=== PATIENT | male | born 1940 | race Caucasian/White ===

== ENCOUNTER 2020-11-30 00:50 | Inpatient (IN) | payer MEDICARE ==
[~2020-11-30] VITALS: Ht 182.9 cm; Wt 90.6 kg
[2020-11-30] MEDS ORDERED: OLAN5TAB9 PO ×2 (01:12)
[2020-11-30] MEDS ORDERED: SERT-269 PO (01:12)
[2020-11-30] MEDS ORDERED: SENN1TAB99 PO (01:12)
[2020-11-30] MEDS ORDERED: ATOR40TA59 PO (01:12)
[2020-11-30] MEDS ORDERED: OLAN10TA9 PO (01:12)
[2020-11-30] MEDS ORDERED: DONE10TA61 PO (01:12)
[2020-11-30] MEDS ORDERED: POLY17PO5 PO (01:12)
[2020-11-30] MEDS ORDERED: ACET325T21 PO (01:12)
[2020-11-30] MEDS ORDERED: MELA3TAB4 PO (01:12)
[2020-11-30] MEDS ORDERED: ASPI-630 PO (01:12)
[2020-11-30] MEDS ORDERED: DIVA500T17 PO (01:12)
[2020-11-30] MEDS ORDERED: TAMS0.4C97 PO (01:12)
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
[2020-11-30 02:23] LABS: BASO % 1 % (0-3); CALCIUM 9.3 mg/dL (8.5-10.1); CREATININE 1.3 mg/dL (0.7-1.3); EOS # 0.1 x10^3/uL (0.0-0.7); EOS % 2 % (0-3); HEMATOCRIT 37.1 % (39.0-53.0); HEMOGLOBIN 11.9 g/dL (13.0-17.5); LYMPH # 1.2 x10^3/uL (1.0-4.8); LYMPH % 26 % (24-48); MEAN CORPUSCULAR HEMOGLOBIN 28 pg (25-35); MEAN CORPUSCULAR HGB CONC 32 g/dL (31-37); MEAN CORPUSCULAR VOLUME 86 fL (79-100); MONO # 0.5 x10^3/uL (0.0-1.1); MONO % 12 % (0-9); NEUT # 2.7 x10^3uL (1.8-7.7); NEUT % 60 % (31-73); PLATELET COUNT 194 x10^3/uL (140-400); POTASSIUM 3.6 mmol/L (3.5-5.1); WHITE BLOOD COUNT 4.5 x10^3/uL (4.0-11.0)
[2020-11-30 02:36] LABS: ALBUMIN 3.5 g/dL (3.4-5.0); DIRECT BILIRUBIN 0.1 mg/dL (0.0-0.2); MAGNESIUM 2.4 mg/dL (1.8-2.4); TOTAL BILIRUBIN 0.2 mg/dL (0.2-1.0)
[2020-11-30 02:59] LABS: BARBITURATES NEG (NEG); BENZODIAZEPINES NEG (NEG); CANNABINOIDS NEG (NEG); COCAINE NEG (NEG); METHADONE NEG (NEG); OPIATES NEG (NEG); PHENCYCLIDINE NEG (NEG)
[2020-11-30 03:04] LABS: AMPHETAMINE/METHAMPHETAMINE NEG (NEG)
[2020-11-30 03:06] LABS: BACTERIA,URINE 0 /HPF (0-FEW); BILIRUBIN,URINE NEG (NEG); CLARITY,URINE CLEAR; COLOR,URINE YELLOW; GLUCOSE,URINE NEG (NEG); NITRITE,URINE NEG (NEG); RBC,URINE 0 /HPF (0-2); SQUAMOUS EPITHELIAL CELL,UR OCC /LPF; UROBILINOGEN,URINE 0.2 mg/dL (0.2 mg/dL); WBC,URINE 0 /HPF (0-4)
--- NOTE | 2020-11-30 03:45 | RAD ---
EXAMINATION: CT HEAD/BRAIN WO (CT HEAD WITHOUT IV CONTRAST) CLINICAL HISTORY: Fall and subdural hemorrhage TECHNIQUE: Serial axial images without IV contrast were obtained from the vertex to the foramen magnu m. CT Dose Reduction Employed: One or more of the following individualized dose reduction techniques wer e utilized for this examination: 1. Automated exposure control 2. Adjustment of the mA and/or kV ac cording to patient size 3. Use of iterative reconstruction technique. COMPARISON: None FINDINGS: Acute Change: No evidence of an acute infarct or other acute parenchymal process. Hemorrhage: Small left frontal subdural hematoma. Mass Lesion/Mass Effect: No evidence of intracranial mass. No significant mass effect. 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 Scattered patchy foci of hypoatt enuation in the supratentorial white matter, nonspecific but likely represents mild microvascular isc hemia. Parenchyma: Moderate generalized volume loss. Ventricles: Ventricular enlargement concordant with degree of parenchymal volume loss. Paranasal Sinuses and Skull Base: Visualized paranasal sinuses clear. Visualized skull base and soft tissues unremarkable. IMPRESSION: Small left frontal subdural hematoma. FOR INTERNAL CODING PURPOSES Critical result: Findings discussed with Alexander Ibrahim at 11/30/2020 3:40 AM. RESULT CODE: (C) Electronically signed by: Maco Marquez DO (11/30/2020 3:43 AM) KAREN
--- NOTE | 2020-11-30 04:17 | EKG ---
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
[2020-11-30] MEDS ORDERED: METHYL SALICYLATE/MENTHOL TOPICAL OINTMENT 57GM TUBE. TP PRN (04:45)
[2020-11-30] MEDS ORDERED: MAG HYDROX/AL HYDROX/SIMETH 30 ML ORAL.SUSP PO PRN (04:45)
[2020-11-30] MEDS ORDERED: ACETAMINOPHEN 325 MG TABLET PO PRN (04:45)
[2020-11-30] MEDS ORDERED: MAGNESIUM HYDROXIDE 2,400 MG/30 ML ORAL.SUSP. PO PRN (04:45)
--- NOTE | 2020-11-30 05:08 | RAD ---
EXAMINATION: XR CHEST 1V CLINICAL HISTORY: Dyspnea EXAM DATE/TIME: 11/30/2020 2:20 AM COMPARISON: None FINDINGS: Lines, Tubes, and Devices: None. Cardiomediastinal Silhouette: Normal heart size. Aortic atherosclerotic calcification. Lungs and Pleura: No evidence of focal airspace consolidation or pleural effusion. Mild coarse inters titial prominence, likely chronic. Bones and Soft Tissues: Degenerative changes of the thoracic spine. IMPRESSION: No evidence of acute cardiopulmonary abnormality. Electronically signed by: Maco Marquez DO (11/30/2020 5:05 AM) KAREN
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
[2020-11-30 05:47] VITALS: BP 120/72
[2020-11-30] MEDS: POLYETHYLENE GLYCOL 3350 17 GM PACKET. PO SCH (09:00)
[2020-11-30] MEDS: SENNOSIDES/DOCUSATE 8.6/50MG TABLET. PO SCH (12:13)
[2020-11-30] MEDS: DIVALPROEX ER 500 MG TAB.ER.24H PO SCH (12:13)
[2020-11-30] MEDS: ASPIRIN CHEWABLE 81 MG TABLET. PO SCH (12:13)
[2020-11-30] MEDS: SERTRALINE 100 MG TABLET. PO SCH (12:13)
[2020-11-30] MEDS: DONEPEZIL HCL 10 MG TABLET PO SCH (12:13)
[2020-11-30] MEDS: OLANZapine 10 MG TABLET PO SCH (12:13)
[2020-11-30] MEDS: TAMSULOSIN 0.4 MG CAP.ER.24H. PO SCH (12:13)
--- NOTE | 2020-11-30 13:02 | NUR ---
Pt has slept through most of the morning and woke just prior to lunch. He is compliant with medications whole. He is confused and forgetful, A&O to self only, absent of SI/HI/VH/AH/delusions. He denies pain when asked. After lunch he went back to bed to sleep some more. Plan of care continues, will pass to next shift.
[2020-11-30] MEDS ORDERED: oxyCODONE IR 5 MG TABLET PO PRN (13:30)
[2020-11-30 15:33] VITALS: BP 128/76
[2020-11-30] MEDS: OLANZapine 5 MG TABLET PO SCH ×2 (17:50→21:55)
[2020-11-30] MEDS: MELATONIN 3 MG TABLET PO SCH (21:00)
[2020-11-30] MEDS: ATORVASTATIN CALCIUM 20 MG TABLET PO SCH (21:54)
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
--- NOTE | 2020-11-30 22:10 | PDOC ---
Exam Note: Obey Note: Please also refer to the separate dictated note~for this date of service dictated separately.~Patient seen individually. Discussed the patient with Nursing staff reviewed the chart.~Reviewed interim history and current functioning. Reviewed vital signs,~Labs/ Radiology~and current medications noted below. Continue current treatment with the changes noted in the dictated addendum note Assessment: Vital Signs/I&O: Vital Signs Date Time Temp Pulse Resp B/P (MAP) Pulse Ox O2 Delivery O2 Flow Rate FiO2 11/30/20 15:33 97.8 75 18 128/76 (93) 96 11/30/20 05:47 Room Air Labs: Laboratory Tests Test 11/30/20 01:50 11/30/20 02:35 11/30/20 06:50 11/30/20 10:09 White Blood Count 4.5 x10^3/uL (4.0-11.0) Red Blood Count 4.30 x10^6/uL (4.30-5.70) Hemoglobin 11.9 g/dL (13.0-17.5) L Hematocrit 37.1 % (39.0-53.0) L Mean Corpuscular Volume 86 fL (79-100) Mean Corpuscular Hemoglobin 28 pg (25-35) Mean Corpuscular Hemoglobin Concent 32 g/dL (31-37) Red Cell Distribution Width 17.0 % (11.5-14.5) H Platelet Count 194 x10^3/uL (140-400) Neutrophils (%) (Auto) 60 % (31-73) Lymphocytes (%) (Auto) 26 % (24-48) Monocytes (%) (Auto) 12 % (0-9) H Eosinophils (%) (Auto) 2 % (0-3) Basophils (%) (Auto) 1 % (0-3) Neutrophils # (Auto) 2.7 x10^3uL (1.8-7.7) Lymphocytes # (Auto) 1.2 x10^3/uL (1.0-4.8) Monocytes # (Auto) 0.5 x10^3/uL (0.0-1.1) Eosinophils # (Auto) 0.1 x10^3/uL (0.0-0.7) Basophils # (Auto) 0.0 x10^3/uL (0.0-0.2) Sodium Level 144 mmol/L (136-145) Potassium Level 3.6 mmol/L (3.5-5.1) Chloride Level 107 mmol/L (98-107) Carbon Dioxide Level 27 mmol/L (21-32) Anion Gap 10 (6-14) Blood Urea Nitrogen 24 mg/dL (8-26) Creatinine 1.3 mg/dL (0.7-1.3) Estimated GFR (Cockcroft-Gault) 53.0 Glucose Level 116 mg/dL (70-99) H Calcium Level 9.3 mg/dL (8.5-10.1) Magnesium Level 2.4 mg/dL (1.8-2.4) Iron Level 56 ug/dL (65-175) L Total Iron Binding Capacity 379 ug/dL (250-450) Iron Saturation 15 % (15-34) Total Bilirubin 0.2 mg/dL (0.2-1.0) Direct Bilirubin 0.1 mg/dL (0.0-0.2) Aspartate Amino Transferase (AST) 22 U/L (15-37) Alanine Aminotransferase (ALT) 34 U/L (16-63) Alkaline Phosphatase 131 U/L (46-116) H Creatine Kinase 43 U/L (39-308) Troponin I Quantitative < 0.017 ng/mL (0-0.055) < 0.017 ng/mL (0-0.055) < 0.017 ng/mL (0-0.055) LT-Vuo-F-Type Natriuretic Peptide 142 pg/mL (0-449) Total Protein 7.0 g/dL (6.4-8.2) Albumin 3.5 g/dL (3.4-5.0) Triglycerides Level 87 mg/dL (0-150) Cholesterol Level 161 mg/dL (0-200) LDL Cholesterol, Calculated 81 mg/dL (0-100) VLDL Cholesterol, Calculated 17 mg/dL (0-40) Non-HDL Cholesterol Calculated 98 mg/dL (0-129) HDL Cholesterol 63 mg/dL (40-60) H Cholesterol/HDL Ratio 2.0 Thyroid Stimulating Hormone (TSH) 5.526 uIU/mL (0.358-3.740) Urine Collection Type Unknown Urine Color Yellow Urine Clarity Clear Urine pH 5.5 Urine Specific [place] 1.025 Urine Protein Neg (NEG-TRACE) Urine Glucose (UA) Neg mg/dL (NEG) Urine Ketones (Stick) Trace mg/dL (NEG) Urine Blood Neg (NEG) Urine Nitrite Neg (NEG) Urine Bilirubin Neg (NEG) Urine Urobilinogen Dipstick 0.2 mg/dL (0.2 mg/dL) Urine Leukocyte Esterase Neg (NEG) Urine RBC 0 /HPF (0-2) Urine WBC 0 /HPF (0-4) Urine Squamous Epithelial Cells Occ /LPF Urine Bacteria 0 /HPF (0-FEW) Urine Opiates Screen Neg (NEG) Urine Methadone Screen Neg (NEG) Urine Barbiturates Neg (NEG) Urine Phencyclidine Screen Neg (NEG) Urine Amphetamine/Methamphetamine Neg (NEG) Urine Benzodiazepines Screen Neg (NEG) Urine Cocaine Screen Neg (NEG) Urine Cannabinoids Screen Neg (NEG) Urine Ethyl Alcohol Neg (NEG) D-Dimer (Bere) 1.50 mg/L (0.00-0.50) H Current Medications: Meds: Current Medications Medications (Trade) Dose Ordered Sig/Veto Route PRN Reason Start Time Stop Time Status Last Admin Dose Admin Divalproex Sodium (Depakote Er) 500 mg DAILY PO 11/30/20 09:00 11/30/20 12:13 Donepezil HCl (Aricept) 10 mg DAILY PO 11/30/20 09:00 11/30/20 12:13 Melatonin (Melatonin) 3 mg HS PO 11/30/20 21:00 11/30/20 21:00 Olanzapine (ZyPREXA) 5 mg AFTRNOON PO 11/30/20 13:00 11/30/20 17:50 Olanzapine (ZyPREXA) 5 mg HS PO 11/30/20 21:00 11/30/20 21:55 Olanzapine (ZyPREXA) 10 mg DAILY PO 11/30/20 09:00 11/30/20 12:13 Sertraline HCl (Zoloft) 100 mg DAILY PO 11/30/20 09:00 11/30/20 12:13 Aspirin (Aspirin Chewable) 81 mg DAILY PO 11/30/20 09:00 11/30/20 12:13 Senna/Docusate Sodium (Senna Plus) 1 tab DAILY PO 11/30/20 09:00 11/30/20 12:13 Tamsulosin HCl (Flomax) 0.4 mg DAILY PO 11/30/20 09:00 11/30/20 12:13 Atorvastatin Calcium (Lipitor) 40 mg QHS PO 11/30/20 21:00 11/30/20 21:54 I have reviewed the current psychotropics carefully including drug interactions. Risk benefit ratio favors no change other than as noted in my dictated progress note. Diagnosis: Problems: (1) Major neurocognitive disorder (2) Dementia in Alzheimer's disease with delusions (3) Dementia in Alzheimer's disease with depression (4) Dementia of the Alzheimer's type with early onset with behavioral disturbance (5) Dementia, vascular, with delusions (6) Dementia, vascular, with depression (7) Anxiety disorder, unspecified (8) Impulse control disorder, unspecified SONIA REILLY MD Nov 30, 2020 22:10
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
[2020-12-01 00:09] LABS: THYROXINE 4.2 ug/dL (4.5-12.0)
--- NOTE | 2020-12-01 04:56 | NUR ---
Patient remained in his room through the shift. He exhibited reluctance in waking up to answer questions from the nurse or take his medications. He was able to answer a few questions coherently and insisted he wanted to go back to sleep once he had taken all his night med from the nurse. Patient remained in bed, resting with eyes closed, breathing normally and showing no distress.
[2020-12-01 05:53] VITALS: BP 116/71
[2020-12-01 06:10] LABS: HEMOGLOBIN A1C 5.7 % (4.8-5.6)
[2020-12-01 06:30] LABS: BASO % 1 % (0-3); EOS # 0.1 x10^3/uL (0.0-0.7); EOS % 2 % (0-3); HEMATOCRIT 35.4 % (39.0-53.0); HEMOGLOBIN 11.7 g/dL (13.0-17.5); LYMPH # 1.1 x10^3/uL (1.0-4.8); LYMPH % 26 % (24-48); MEAN CORPUSCULAR HEMOGLOBIN 28 pg (25-35); MEAN CORPUSCULAR HGB CONC 33 g/dL (31-37); MEAN CORPUSCULAR VOLUME 86 fL (79-100); MONO # 0.4 x10^3/uL (0.0-1.1); MONO % 10 % (0-9); NEUT # 2.6 x10^3uL (1.8-7.7); NEUT % 62 % (31-73); PLATELET COUNT 178 x10^3/uL (140-400); RED BLOOD COUNT 4.14 x10^6/uL (4.30-5.70); RED CELL DISTRIBUTION WIDTH 16.8 % (11.5-14.5); WHITE BLOOD COUNT 4.3 x10^3/uL (4.0-11.0)
[2020-12-01 06:53] LABS: CALCIUM 8.8 mg/dL (8.5-10.1); CREATININE 1.1 mg/dL (0.7-1.3); GFR 64.2
[2020-12-01] MEDS: SERTRALINE 100 MG TABLET. PO SCH (08:20)
[2020-12-01] MEDS: OLANZapine 10 MG TABLET PO SCH (08:20)
[2020-12-01] MEDS: DIVALPROEX ER 500 MG TAB.ER.24H PO SCH (08:20)
[2020-12-01] MEDS: ASPIRIN CHEWABLE 81 MG TABLET. PO SCH (08:20)
[2020-12-01] MEDS: POLYETHYLENE GLYCOL 3350 17 GM PACKET. PO SCH (08:20)
[2020-12-01] MEDS: SENNOSIDES/DOCUSATE 8.6/50MG TABLET. PO SCH (08:20)
[2020-12-01] MEDS: DONEPEZIL HCL 10 MG TABLET PO SCH (08:20)
[2020-12-01] MEDS: TAMSULOSIN 0.4 MG CAP.ER.24H. PO SCH (08:20)
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
[2020-12-01] MEDS: OLANZapine 5 MG TABLET PO SCH ×2 (12:26→21:00)
--- NOTE | 2020-12-01 13:20 | NUR ---
Treatment team note: Pt is eating 100% of meals and sleeping on average 7 hours per night. Pt is A/O to self and appears to have a flat affect. Pt wanders the unit; however, is calm and cooperative with staff direction. Nursing has noted that pt has a fluid pocket on the back of his neck and will have that looked at by the hospitalist. Pt did have a CT head completed upon admission and it does show a small subdural hematoma. Dr. Mansfield has been consulted; per the neurosurgeon he believes that hematoma is resolving. At this time, pt will return to [place] in [facility] 14 days.
--- NOTE | 2020-12-01 14:38 | NUR ---
NURSING NOTE Pt is ambulatory independently. Oriented to self only, wanders unit commenting "I'm lost" or "I'm not sure how I got here." Affect is flat, but involves himself on the periphery of group activities. Cooperative with cares. Meal intakes good, medications taken whole. Compliant with cares. Follow-up CT ordered for Tuesday.
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
[2020-12-01 15:34] VITALS: BP 109/73
[2020-12-01] MEDS: ATORVASTATIN CALCIUM 20 MG TABLET PO SCH (20:59)
[2020-12-01] MEDS: MELATONIN 3 MG TABLET PO SCH (21:00)
--- NOTE | 2020-12-01 21:56 | PDOC ---
Exam Note: Obey Note: Please also refer to the separate dictated note~for this date of service dictated separately.~Patient seen individually. Discussed the patient with Nursing staff reviewed the chart.~Reviewed interim history and current functioning. Reviewed vital signs,~Labs/ Radiology~and current medications noted below. Continue current treatment with the changes noted in the dictated addendum note Assessment: Vital Signs/I&O: Vital Signs Date Time Temp Pulse Resp B/P (MAP) Pulse Ox O2 Delivery O2 Flow Rate FiO2 12/01/20 15:34 97.3 89 16 109/73 (85) 96 11/30/20 05:47 Room Air I & O 11/30/20 11/30/20 12/01/20 15:00 23:00 07:00 Intake Total 240 ml 480 ml Balance 240 ml 480 ml Labs: Laboratory Tests Test 12/01/20 06:05 White Blood Count 4.3 x10^3/uL (4.0-11.0) Red Blood Count 4.14 x10^6/uL (4.30-5.70) L Hemoglobin 11.7 g/dL (13.0-17.5) L Hematocrit 35.4 % (39.0-53.0) L Mean Corpuscular Volume 86 fL (79-100) Mean Corpuscular Hemoglobin 28 pg (25-35) Mean Corpuscular Hemoglobin Concent 33 g/dL (31-37) Red Cell Distribution Width 16.8 % (11.5-14.5) H Platelet Count 178 x10^3/uL (140-400) Neutrophils (%) (Auto) 62 % (31-73) Lymphocytes (%) (Auto) 26 % (24-48) Monocytes (%) (Auto) 10 % (0-9) H Eosinophils (%) (Auto) 2 % (0-3) Basophils (%) (Auto) 1 % (0-3) Neutrophils # (Auto) 2.6 x10^3uL (1.8-7.7) Lymphocytes # (Auto) 1.1 x10^3/uL (1.0-4.8) Monocytes # (Auto) 0.4 x10^3/uL (0.0-1.1) Eosinophils # (Auto) 0.1 x10^3/uL (0.0-0.7) Basophils # (Auto) 0.0 x10^3/uL (0.0-0.2) Sodium Level 143 mmol/L (136-145) Potassium Level 4.0 mmol/L (3.5-5.1) Chloride Level 108 mmol/L (98-107) H Carbon Dioxide Level 26 mmol/L (21-32) Anion Gap 9 (6-14) Blood Urea Nitrogen 17 mg/dL (8-26) Creatinine 1.1 mg/dL (0.7-1.3) Estimated GFR (Cockcroft-Gault) 64.2 Glucose Level 95 mg/dL (70-99) Calcium Level 8.8 mg/dL (8.5-10.1) Current Medications: Meds: Laboratory Tests Test 12/01/20 06:05 White Blood Count 4.3 x10^3/uL Red Blood Count 4.14 x10^6/uL Hemoglobin 11.7 g/dL Hematocrit 35.4 % Mean Corpuscular Volume 86 fL Mean Corpuscular Hemoglobin 28 pg Mean Corpuscular Hemoglobin Concent 33 g/dL Red Cell Distribution Width 16.8 % Platelet Count 178 x10^3/uL Neutrophils (%) (Auto) 62 % Lymphocytes (%) (Auto) 26 % Monocytes (%) (Auto) 10 % Eosinophils (%) (Auto) 2 % Basophils (%) (Auto) 1 % Neutrophils # (Auto) 2.6 x10^3uL Lymphocytes # (Auto) 1.1 x10^3/uL Monocytes # (Auto) 0.4 x10^3/uL Eosinophils # (Auto) 0.1 x10^3/uL Basophils # (Auto) 0.0 x10^3/uL Sodium Level 143 mmol/L Potassium Level 4.0 mmol/L Chloride Level 108 mmol/L Carbon Dioxide Level 26 mmol/L Anion Gap 9 Blood Urea Nitrogen 17 mg/dL Creatinine 1.1 mg/dL Estimated GFR (Cockcroft-Gault) 64.2 Glucose Level 95 mg/dL Calcium Level 8.8 mg/dL Current Medications Medications (Trade) Dose Ordered Sig/Veto Route PRN Reason Start Time Stop Time Status Last Admin Dose Admin Divalproex Sodium (Depakote Er) 500 mg DAILY PO 11/30/20 09:00 12/01/20 08:20 Donepezil HCl (Aricept) 10 mg DAILY PO 11/30/20 09:00 12/01/20 08:20 Melatonin (Melatonin) 3 mg HS PO 11/30/20 21:00 12/01/20 21:00 Olanzapine (ZyPREXA) 5 mg AFTRNOON PO 11/30/20 13:00 12/01/20 12:26 Olanzapine (ZyPREXA) 5 mg HS PO 11/30/20 21:00 12/01/20 21:00 Olanzapine (ZyPREXA) 10 mg DAILY PO 11/30/20 09:00 12/01/20 08:20 Sertraline HCl (Zoloft) 100 mg DAILY PO 11/30/20 09:00 12/01/20 08:20 Acetaminophen (Tylenol) 650 mg PRN Q6HRS PRN PO MILD PAIN / TEMP > 100.3'F 11/30/20 04:45 Aspirin (Aspirin Chewable) 81 mg DAILY PO 11/30/20 09:00 12/01/20 08:20 Polyethylene Glycol (miraLAX) 17 gm DAILY PO 11/30/20 09:00 12/01/20 08:20 Senna/Docusate Sodium (Senna Plus) 1 tab DAILY PO 11/30/20 09:00 12/01/20 08:20 Tamsulosin HCl (Flomax) 0.4 mg DAILY PO 11/30/20 09:00 12/01/20 08:20 Atorvastatin Calcium (Lipitor) 40 mg QHS PO 11/30/20 21:00 12/01/20 20:59 Olanzapine (ZyPREXA ZYDIS) 2.5 mg PRN Q2HR PRN PO PSYCHOSIS 11/30/20 04:45 Multi-Ingredient Ointment (Analgesic [place]) 1 denia PRN QID PRN TP MUSCLE PAIN 11/30/20 04:45 Al Hydroxide/Mg Hydroxide (Mylanta Plus Xs) 15 ml PRN AFTMEALHC PRN PO DYSPEPSIA 11/30/20 04:45 Magnesium Hydroxide (Milk Of Magnesia) 2,400 mg PRN QHS PRN PO CONSTIPATION 11/30/20 04:45 Oxycodone HCl (Roxicodone) 5 mg PRN Q3HRS PRN PO SEVERE OR PERSISTANT PAIN 11/30/20 13:30 I have reviewed the current psychotropics carefully including drug interactions. Risk benefit ratio favors no change other than as noted in my dictated progress note. Diagnosis: Problems: (1) Impulse control disorder, unspecified (2) Anxiety disorder, unspecified (3) Dementia, vascular, with depression (4) Dementia, vascular, with delusions (5) Dementia in Alzheimer's disease with depression (6) Dementia in Alzheimer's disease with delusions (7) Dementia of the Alzheimer's type with early onset with behavioral disturbance (8) Major neurocognitive disorder SONIA REILLY MD Dec 01, 2020 21:56
--- NOTE | 2020-12-02 04:23 | NUR ---
Patient had an uneventful, regular day, starting his shift at the TV room where he interacted pleasantly with staff and peers. He was noticed consuming all his snacks and showed no signs of nausea and vomiting. He showed some intermittent wandering and confusion, but had a stable gait. Patient retired to his room after a few hours of TV and stayed in bed, resting with eyes closed, breathing normally and showing no signs of distress.
[2020-12-02 06:19] VITALS: BP 104/66
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
[2020-12-02] MEDS: ASPIRIN CHEWABLE 81 MG TABLET. PO SCH (09:00)
[2020-12-02] MEDS: OLANZapine 10 MG TABLET PO SCH (11:45)
[2020-12-02] MEDS: TAMSULOSIN 0.4 MG CAP.ER.24H. PO SCH (11:45)
[2020-12-02] MEDS: SERTRALINE 100 MG TABLET. PO SCH (11:45)
[2020-12-02] MEDS: POLYETHYLENE GLYCOL 3350 17 GM PACKET. PO SCH (11:45)
[2020-12-02] MEDS: DONEPEZIL HCL 10 MG TABLET PO SCH (11:45)
[2020-12-02] MEDS: SENNOSIDES/DOCUSATE 8.6/50MG TABLET. PO SCH (11:45)
[2020-12-02] MEDS: DIVALPROEX ER 500 MG TAB.ER.24H PO SCH (11:45)
--- NOTE | 2020-12-02 11:49 | NUR ---
Pt appropriate on the unit, no signs of verbal or physical aggression. He is compliant with whole medications. No SI/HI/VH/AH/delusions. He denies pain when asked. He does not interact with others intentionally, but will respond when spoken to. He appears confused at times, often just standing around and not sitting and joining others in activities. Plan of care continues, will pass to next shift.
[2020-12-02] MEDS: OLANZapine 5 MG TABLET PO SCH ×2 (13:00→19:44)
[2020-12-02 15:55] VITALS: BP 102/70
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
--- NOTE | 2020-12-02 17:51 | NUR ---
Obtained verbal consent from Son/Guardian, Aj Larios, to request radiology imaging/reports from [facility]. Release of information request completed by this nurse and co-signed by Charge Nurse Shahrzad. Release of info request and guardianship documents sent to [facility] (fax [phone]).
[2020-12-02] MEDS: ATORVASTATIN CALCIUM 20 MG TABLET PO SCH (19:44)
[2020-12-02] MEDS: MELATONIN 3 MG TABLET PO SCH (19:45)
--- NOTE | 2020-12-02 22:03 | PDOC ---
Exam Note: Obey Note: Please also refer to the separate dictated note~for this date of service dictated separately.~Patient seen individually. Discussed the patient with Nursing staff reviewed the chart.~Reviewed interim history and current functioning. Reviewed vital signs,~Labs/ Radiology~and current medications noted below. Continue current treatment with the changes noted in the dictated addendum note Assessment: Vital Signs/I&O: Vital Signs Date Time Temp Pulse Resp B/P (MAP) Pulse Ox O2 Delivery O2 Flow Rate FiO2 12/02/20 15:55 96.7 75 18 102/70 (81) 98 11/30/20 05:47 Room Air I & O 12/01/20 12/01/20 12/02/20 15:00 23:00 07:00 Intake Total 960 ml 480 ml 240 ml Balance 960 ml 480 ml 240 ml Current Medications: Meds: Current Medications Medications (Trade) Dose Ordered Sig/Veto Route PRN Reason Start Time Stop Time Status Last Admin Dose Admin Divalproex Sodium (Depakote Er) 500 mg DAILY PO 11/30/20 09:00 12/02/20 11:45 Donepezil HCl (Aricept) 10 mg DAILY PO 11/30/20 09:00 12/02/20 11:45 Melatonin (Melatonin) 3 mg HS PO 11/30/20 21:00 12/02/20 19:45 Olanzapine (ZyPREXA) 5 mg AFTRNOON PO 11/30/20 13:00 12/02/20 13:00 Olanzapine (ZyPREXA) 5 mg HS PO 11/30/20 21:00 12/02/20 19:44 Olanzapine (ZyPREXA) 10 mg DAILY PO 11/30/20 09:00 12/02/20 11:45 Sertraline HCl (Zoloft) 100 mg DAILY PO 11/30/20 09:00 12/02/20 11:45 Acetaminophen (Tylenol) 650 mg PRN Q6HRS PRN PO MILD PAIN / TEMP > 100.3'F 11/30/20 04:45 Aspirin (Aspirin Chewable) 81 mg DAILY PO 11/30/20 09:00 12/02/20 09:00 Polyethylene Glycol (miraLAX) 17 gm DAILY PO 11/30/20 09:00 12/02/20 11:45 Senna/Docusate Sodium (Senna Plus) 1 tab DAILY PO 11/30/20 09:00 12/02/20 11:45 Tamsulosin HCl (Flomax) 0.4 mg DAILY PO 11/30/20 09:00 12/02/20 11:45 Atorvastatin Calcium (Lipitor) 40 mg QHS PO 11/30/20 21:00 12/02/20 19:44 Olanzapine (ZyPREXA ZYDIS) 2.5 mg PRN Q2HR PRN PO PSYCHOSIS 11/30/20 04:45 Multi-Ingredient Ointment (Analgesic [place]) 1 denia PRN QID PRN TP MUSCLE PAIN 11/30/20 04:45 Al Hydroxide/Mg Hydroxide (Mylanta Plus Xs) 15 ml PRN AFTMEALHC PRN PO DYSPEPSIA 11/30/20 04:45 Magnesium Hydroxide (Milk Of Magnesia) 2,400 mg PRN QHS PRN PO CONSTIPATION 11/30/20 04:45 Oxycodone HCl (Roxicodone) 5 mg PRN Q3HRS PRN PO SEVERE OR PERSISTANT PAIN 11/30/20 13:30 I have reviewed the current psychotropics carefully including drug interactions. Risk benefit ratio favors no change other than as noted in my dictated progress note. Diagnosis: Problems: (1) Impulse control disorder, unspecified (2) Anxiety disorder, unspecified (3) Dementia, vascular, with depression (4) Dementia, vascular, with delusions (5) Dementia in Alzheimer's disease with depression (6) Dementia in Alzheimer's disease with delusions (7) Dementia of the Alzheimer's type with early onset with behavioral disturbance (8) Major neurocognitive disorder SONIA REILLY MD Dec 02, 2020 22:03
--- NOTE | 2020-12-02 23:03 | NUR ---
Pt sitting calmly in dayroom this evening. A/O name and . Compliant with whole medications. No agitation or aggression.
[2020-12-03 05:51] VITALS: BP 119/64
[2020-12-03 06:54] LABS: VAL ACID 38 mcg/mL (50-100)
--- NOTE | 2020-12-03 08:08 | PDOC ---
Exam Note: Obey Note: This note is a late entry for 12/01/2020 covers elements not covered in my initial note. Subjective: The patient was reviewed in the morning of 12/01/2020 for a treatment team meeting with Enriqueta Child, Linnette Petersen (geriatric social work professor), Yumiko Vasquez, Instrumentation Manager, Adia, activity therapy and helga Joshi RN iscussed and reviewed the chart. The patient slept 7 hours previous night. The patient cheeks his medications, tries to spit them out later. Reportedly he has had left frontal bleed. We will get a past CT head reports and have our radiologist compared with the recent one. In the evening he was wandering, exit seeking, not aggressive. Review of Systems: Ambulation impaired with walker. No CV, , pulmonary, eye, ENT system symptoms on review. Mental Status Exam: The patient is reasonably oriented to himself. Speech coherent. Abstraction fair. Computation impaired. Language function intact. Mood and affect depressed, anxious. No suicidal or homicidal ideation. Laboratory Data: Reviewed. Impression: Major neurocognitive disorder, Alzheimer, vascular with delusion, depression, behavioral disturbance. Anxiety disorder unspecified. Impulse control disorder unspecified. Plan: No change from initial note. Assessment: Vital Signs/I&O: Vital Signs Date Time Temp Pulse Resp B/P (MAP) Pulse Ox O2 Delivery O2 Flow Rate FiO2 12/03/20 05:51 97.6 56 20 119/64 (82) 99 11/30/20 05:47 Room Air I & O 12/02/20 12/02/20 12/03/20 15:00 23:00 07:00 Intake Total 690 ml 120 ml 240 ml Balance 690 ml 120 ml 240 ml Labs: Laboratory Tests Test 12/03/20 05:54 Valproic Acid Level 38 mcg/mL (50-100) L Valproic Acid Last Dose Date 12/02/20 Valproic Acid Last Dose Time 2100 Current Medications: Meds: Laboratory Tests Test 12/03/20 05:54 Valproic Acid (Depakene) Level 38 mcg/mL Valproic Acid Last Dose Date 12/02/20 Valproic Acid Last Dose Time 2100 Current Medications Medications (Trade) Dose Ordered Sig/Veto Route PRN Reason Start Time Stop Time Status Last Admin Dose Admin Divalproex Sodium (Depakote Er) 500 mg DAILY PO 11/30/20 09:00 12/02/20 11:45 Donepezil HCl (Aricept) 10 mg DAILY PO 11/30/20 09:00 12/02/20 11:45 Melatonin (Melatonin) 3 mg HS PO 11/30/20 21:00 12/02/20 19:45 Olanzapine (ZyPREXA) 5 mg AFTRNOON PO 11/30/20 13:00 12/02/20 13:00 Olanzapine (ZyPREXA) 5 mg HS PO 11/30/20 21:00 12/02/20 19:44 Olanzapine (ZyPREXA) 10 mg DAILY PO 11/30/20 09:00 12/02/20 11:45 Sertraline HCl (Zoloft) 100 mg DAILY PO 11/30/20 09:00 12/02/20 11:45 Acetaminophen (Tylenol) 650 mg PRN Q6HRS PRN PO MILD PAIN / TEMP > 100.3'F 11/30/20 04:45 Aspirin (Aspirin Chewable) 81 mg DAILY PO 11/30/20 09:00 12/02/20 09:00 Polyethylene Glycol (miraLAX) 17 gm DAILY PO 11/30/20 09:00 12/02/20 11:45 Senna/Docusate Sodium (Senna Plus) 1 tab DAILY PO 11/30/20 09:00 12/02/20 11:45 Tamsulosin HCl (Flomax) 0.4 mg DAILY PO 11/30/20 09:00 12/02/20 11:45 Atorvastatin Calcium (Lipitor) 40 mg QHS PO 11/30/20 21:00 12/02/20 19:44 Olanzapine (ZyPREXA ZYDIS) 2.5 mg PRN Q2HR PRN PO PSYCHOSIS 11/30/20 04:45 Multi-Ingredient Ointment (Analgesic [place]) 1 denia PRN QID PRN TP MUSCLE PAIN 11/30/20 04:45 Al Hydroxide/Mg Hydroxide (Mylanta Plus Xs) 15 ml PRN AFTMEALHC PRN PO DYSPEPSIA 11/30/20 04:45 Magnesium Hydroxide (Milk Of Magnesia) 2,400 mg PRN QHS PRN PO CONSTIPATION 11/30/20 04:45 Oxycodone HCl (Roxicodone) 5 mg PRN Q3HRS PRN PO SEVERE OR PERSISTANT PAIN 11/30/20 13:30 I have reviewed the current psychotropics carefully including drug interactions. Risk benefit ratio favors no change other than as noted in my dictated progress note. 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
[2020-12-03] MEDS: SENNOSIDES/DOCUSATE 8.6/50MG TABLET. PO SCH (08:13)
[2020-12-03] MEDS: DIVALPROEX ER 500 MG TAB.ER.24H PO SCH (08:13)
[2020-12-03] MEDS: DONEPEZIL HCL 10 MG TABLET PO SCH (08:13)
[2020-12-03] MEDS: POLYETHYLENE GLYCOL 3350 17 GM PACKET. PO SCH (08:13)
[2020-12-03] MEDS: TAMSULOSIN 0.4 MG CAP.ER.24H. PO SCH (08:13)
[2020-12-03] MEDS: OLANZapine 10 MG TABLET PO SCH (08:13)
[2020-12-03] MEDS: SERTRALINE 100 MG TABLET. PO SCH (08:13)
[2020-12-03] MEDS: ASPIRIN CHEWABLE 81 MG TABLET. PO SCH (08:13)
--- NOTE | 2020-12-03 08:23 | PDOC ---
Exam Note: Obey Note: This note is a late entry for 12/02/2020 covers elements not covered in my initial note. Subjective: The patient was seen individually in the evening of 12/02/2020 with Madelyn EDGAR, discussed and reviewed the chart. The patient slept 5-1/4 hours previous night. The patient was confused last night, fairly quiet today, withdrawn. Social skills are poor. He sits away from others. Family said this is how he has been, compliant with medications. We will check valproic acid level in the morning and adjust to reach therapeutic level. We will consider Wellbutrin to help with his mood and energy and to augment the Zoloft. Review of Systems: Ambulation impaired with walker. No CV, , pulmonary, eye, ENT system symptoms on review. Mental Status Exam: The patient is reasonably oriented to himself. Speech coherent. Abstraction fair. Computation impaired. Language function intact. Mood and affect depressed, anxious. No suicidal or homicidal ideation. Laboratory Data: Reviewed. Impression: Major neurocognitive disorder, Alzheimer, vascular with delusion, depression, behavioral disturbance. Anxiety disorder unspecified. Impulse control disorder unspecified. Plan: No change from initial note and as noted above. Assessment: Vital Signs/I&O: Vital Signs Date Time Temp Pulse Resp B/P (MAP) Pulse Ox O2 Delivery O2 Flow Rate FiO2 12/03/20 05:51 97.6 56 20 119/64 (82) 99 11/30/20 05:47 Room Air I & O 12/02/20 12/02/20 12/03/20 14:59 22:59 06:59 Intake Total 690 ml 120 ml 240 ml Balance 690 ml 120 ml 240 ml Labs: Laboratory Tests Test 12/03/20 05:54 Valproic Acid Level 38 mcg/mL (50-100) L Valproic Acid Last Dose Date 12/02/20 Valproic Acid Last Dose Time 2100 Current Medications: Meds: Laboratory Tests Test 12/03/20 05:54 Valproic Acid (Depakene) Level 38 mcg/mL Valproic Acid Last Dose Date 12/02/20 Valproic Acid Last Dose Time 2100 Current Medications Medications (Trade) Dose Ordered Sig/Veto Route PRN Reason Start Time Stop Time Status Last Admin Dose Admin Divalproex Sodium (Depakote Er) 500 mg DAILY PO 11/30/20 09:00 12/03/20 08:13 Donepezil HCl (Aricept) 10 mg DAILY PO 11/30/20 09:00 12/03/20 08:13 Melatonin (Melatonin) 3 mg HS PO 11/30/20 21:00 12/02/20 19:45 Olanzapine (ZyPREXA) 5 mg AFTRNOON PO 11/30/20 13:00 12/02/20 13:00 Olanzapine (ZyPREXA) 5 mg HS PO 11/30/20 21:00 12/02/20 19:44 Olanzapine (ZyPREXA) 10 mg DAILY PO 11/30/20 09:00 12/03/20 08:13 Sertraline HCl (Zoloft) 100 mg DAILY PO 11/30/20 09:00 12/03/20 08:13 Acetaminophen (Tylenol) 650 mg PRN Q6HRS PRN PO MILD PAIN / TEMP > 100.3'F 11/30/20 04:45 Aspirin (Aspirin Chewable) 81 mg DAILY PO 11/30/20 09:00 12/03/20 08:13 Polyethylene Glycol (miraLAX) 17 gm DAILY PO 11/30/20 09:00 12/03/20 08:13 Senna/Docusate Sodium (Senna Plus) 1 tab DAILY PO 11/30/20 09:00 12/03/20 08:13 Tamsulosin HCl (Flomax) 0.4 mg DAILY PO 11/30/20 09:00 12/03/20 08:13 Atorvastatin Calcium (Lipitor) 40 mg QHS PO 11/30/20 21:00 12/02/20 19:44 Olanzapine (ZyPREXA ZYDIS) 2.5 mg PRN Q2HR PRN PO PSYCHOSIS 11/30/20 04:45 Multi-Ingredient Ointment (Analgesic [place]) 1 denia PRN QID PRN TP MUSCLE PAIN 11/30/20 04:45 Al Hydroxide/Mg Hydroxide (Mylanta Plus Xs) 15 ml PRN AFTMEALHC PRN PO DYSPEPSIA 11/30/20 04:45 Magnesium Hydroxide (Milk Of Magnesia) 2,400 mg PRN QHS PRN PO CONSTIPATION 11/30/20 04:45 Oxycodone HCl (Roxicodone) 5 mg PRN Q3HRS PRN PO SEVERE OR PERSISTANT PAIN 11/30/20 13:30 I have reviewed the current psychotropics carefully including drug interactions. Risk benefit ratio favors no change other than as noted in my dictated progress note. 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
--- NOTE | 2020-12-03 12:35 | NUR ---
ACTIVITY THERAPY ASSESSMENT completed based on notes, observation and interview. Pt was sitting in the dinning room eating his lunch. Pt was willing to answer assessment questions. Pt remained calm and pleasant during time of assessment. AT introduced self and asked pt what activities he enjoys. Pt had a hard time answering this question but said that he enjoyed good food. When AT provided activities for pt he said that he did not enjoy them. AT then asked pt about his family. Pt said that he had been for close to 50 years and that he has three children. Per notes pt has four children and his in 2011. AT then asked pt orientation questions. Pt answered his birthday and the current year incorrectly. Pt said he was unsure of his location. AT then asked pt if he felt any stress and he said that the assessment questions were stressing him out as he laughed. AT asked pt if she could give him some magazines and pt accepted. Pt thanked AT and continued eating. Pt has attended one group activity sense his admission. Initial goal aimed to increase socialization and engagement. Pt will participate in at least three individual or group Activity Therapy sessions per week. Addendum: 12/08/20 at 1141 by JOSE VO ACT Goal repeated 12/08
--- NOTE | 2020-12-03 13:22 | NUR ---
Pt remains calm this morning. His interactions with others have been appropriate this morning. He is compliant with whole medications. He is A&O to self, confused and at times disorganized. He is absent of SI/HI/VH/AH/delusions at this time. He denies pain when asked. At times he's observed to be wandering about the unit but does not appear to be actively exit seeking. Plan of care continues, will pass to next shift.
[2020-12-03] MEDS: OLANZapine 5 MG TABLET PO SCH ×2 (15:10→21:00)
[2020-12-03 15:59] VITALS: BP 107/64
[2020-12-03] MEDS: MELATONIN 3 MG TABLET PO SCH (21:00)
[2020-12-03] MEDS: ATORVASTATIN CALCIUM 20 MG TABLET PO SCH (21:00)
--- NOTE | 2020-12-03 21:56 | PDOC ---
Exam Note: Obey Note: Please also refer to the separate dictated note~for this date of service dictated separately.~Patient seen individually. Discussed the patient with Nursing staff reviewed the chart.~Reviewed interim history and current functioning. Reviewed vital signs,~Labs/ Radiology~and current medications noted below. Continue current treatment with the changes noted in the dictated addendum note Assessment: Vital Signs/I&O: Vital Signs Date Time Temp Pulse Resp B/P (MAP) Pulse Ox O2 Delivery O2 Flow Rate FiO2 12/03/20 15:59 97.0 65 20 107/64 (78) 98 11/30/20 05:47 Room Air I & O 12/02/20 12/02/20 12/03/20 15:00 23:00 07:00 Intake Total 690 ml 120 ml 240 ml Balance 690 ml 120 ml 240 ml Labs: Laboratory Tests Test 12/03/20 05:54 Valproic Acid Level 38 mcg/mL (50-100) L Valproic Acid Last Dose Date 12/02/20 Valproic Acid Last Dose Time 2100 Current Medications: Meds: Laboratory Tests Test 12/03/20 05:54 Valproic Acid (Depakene) Level 38 mcg/mL Valproic Acid Last Dose Date 12/02/20 Valproic Acid Last Dose Time 2100 Current Medications Medications (Trade) Dose Ordered Sig/Veto Route PRN Reason Start Time Stop Time Status Last Admin Dose Admin Divalproex Sodium (Depakote Er) 500 mg DAILY PO 11/30/20 09:00 12/03/20 17:20 DC 12/03/20 08:13 Donepezil HCl (Aricept) 10 mg DAILY PO 11/30/20 09:00 12/03/20 08:13 Melatonin (Melatonin) 3 mg HS PO 11/30/20 21:00 12/03/20 21:00 Olanzapine (ZyPREXA) 5 mg AFTRNOON PO 11/30/20 13:00 12/03/20 15:10 Olanzapine (ZyPREXA) 5 mg HS PO 11/30/20 21:00 12/03/20 21:00 Olanzapine (ZyPREXA) 10 mg DAILY PO 11/30/20 09:00 12/03/20 19:22 DC 12/03/20 08:13 Sertraline HCl (Zoloft) 100 mg DAILY PO 11/30/20 09:00 12/03/20 08:13 Acetaminophen (Tylenol) 650 mg PRN Q6HRS PRN PO MILD PAIN / TEMP > 100.3'F 11/30/20 04:45 Aspirin (Aspirin Chewable) 81 mg DAILY PO 11/30/20 09:00 12/03/20 08:13 Polyethylene Glycol (miraLAX) 17 gm DAILY PO 11/30/20 09:00 12/03/20 08:13 Senna/Docusate Sodium (Senna Plus) 1 tab DAILY PO 11/30/20 09:00 12/03/20 08:13 Tamsulosin HCl (Flomax) 0.4 mg DAILY PO 11/30/20 09:00 12/03/20 08:13 Atorvastatin Calcium (Lipitor) 40 mg QHS PO 11/30/20 21:00 12/03/20 21:00 Olanzapine (ZyPREXA ZYDIS) 2.5 mg PRN Q2HR PRN PO PSYCHOSIS 11/30/20 04:45 Multi-Ingredient Ointment (Analgesic [place]) 1 denia PRN QID PRN TP MUSCLE PAIN 11/30/20 04:45 Al Hydroxide/Mg Hydroxide (Mylanta Plus Xs) 15 ml PRN AFTMEALHC PRN PO DYSPEPSIA 11/30/20 04:45 Magnesium Hydroxide (Milk Of Magnesia) 2,400 mg PRN QHS PRN PO CONSTIPATION 11/30/20 04:45 Oxycodone HCl (Roxicodone) 5 mg PRN Q3HRS PRN PO SEVERE OR PERSISTANT PAIN 11/30/20 13:30 Divalproex Sodium (Depakote Er) 750 mg HS PO 12/04/20 21:00 Olanzapine (ZyPREXA) 5 mg DAILY PO 12/04/20 09:00 I have reviewed the current psychotropics carefully including drug interactions. Risk benefit ratio favors no change other than as noted in my dictated progress note. 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
--- NOTE | 2020-12-04 04:26 | NUR ---
Patient has been alert and oriented x2 with intermittent confusion and disorientation relative to location. Patient asked nurse about three times where he was and after being told, he would inquire on one of the occasions how to get out from here. Patient was intermittently wandering between the tv room and the hallways, but not exit seeking at any given time. Patient complied with his bed time meds which he received in his room and then stayed in bed with eyes closed, breathing normally and showing no distress.
[2020-12-04 05:54] VITALS: BP 107/65
--- NOTE | 2020-12-04 06:59 | PDOC ---
Exam Note: Obey Note: This note is a late entry for 12/03/2020 covers elements not covered in my initial note. Subjective: The patient was seen individually in the evening of 12/03/2020 with Madelyn EDGAR, discussed and reviewed the chart. The patient slept 7-1/2 hours previous night. The patient has been confused. CT head from [facility] has been received and repeat CT will be done on 12/08 to compare to this specifically adding subdural bleed. He had a nap in the afternoon. Valproic acid level is 38 and we will change Depakote ER 250 mg daily to 500 mg h.s. Check CBC, CMP, valproic acid level in 3 days and reduce Zyprexa from 20 mg a day down to 15 mg a day. In fact nursing staff called me later. He is already on 500 mg daily of Depakote ER and we will increase to 750 mg h.s. ER. Review of Systems: Ambulation impaired with walker. No CV, , pulmonary, eye, ENT system symptoms on review. Mental Status Exam: The patient is reasonably oriented to himself. Speech coherent. Abstraction fair. Computation impaired. Language function intact. Mood and affect depressed, anxious. No suicidal or homicidal ideation. Laboratory Data: Reviewed. Impression: Major neurocognitive disorder, Alzheimer, vascular with delusion, depression, behavioral disturbance. Anxiety disorder unspecified. Impulse control disorder unspecified. Plan: No change from initial note and as noted above. Valproic acid level is 38 and we will change Depakote ER 250 mg daily to 500 mg h.s. Check CBC, CMP, valproic acid level in 3 days and reduce Zyprexa from 20 mg a day down to 15 mg a day. In fact nursing staff called me later. He is already on 500 mg daily of Depakote ER and we will increase to 750 mg h.s. ER. Assessment: Vital Signs/I&O: Vital Signs Date Time Temp Pulse Resp B/P (MAP) Pulse Ox O2 Delivery O2 Flow Rate FiO2 12/04/20 05:54 97.1 57 16 107/65 (79) 99 11/30/20 05:47 Room Air I & O 12/03/20 12/03/20 12/04/20 15:00 23:00 07:00 Intake Total 840 ml 360 ml 240 ml Balance 840 ml 360 ml 240 ml Current Medications: Meds: Current Medications Medications (Trade) Dose Ordered Sig/Veto Route PRN Reason Start Time Stop Time Status Last Admin Dose Admin Divalproex Sodium (Depakote Er) 500 mg DAILY PO 11/30/20 09:00 12/03/20 17:20 DC 12/03/20 08:13 Donepezil HCl (Aricept) 10 mg DAILY PO 11/30/20 09:00 12/03/20 08:13 Melatonin (Melatonin) 3 mg HS PO 11/30/20 21:00 12/03/20 21:00 Olanzapine (ZyPREXA) 5 mg AFTRNOON PO 11/30/20 13:00 12/03/20 15:10 Olanzapine (ZyPREXA) 5 mg HS PO 11/30/20 21:00 12/03/20 21:00 Olanzapine (ZyPREXA) 10 mg DAILY PO 11/30/20 09:00 12/03/20 19:22 DC 12/03/20 08:13 Sertraline HCl (Zoloft) 100 mg DAILY PO 11/30/20 09:00 12/03/20 08:13 Acetaminophen (Tylenol) 650 mg PRN Q6HRS PRN PO MILD PAIN / TEMP > 100.3'F 11/30/20 04:45 Aspirin (Aspirin Chewable) 81 mg DAILY PO 11/30/20 09:00 12/03/20 08:13 Polyethylene Glycol (miraLAX) 17 gm DAILY PO 11/30/20 09:00 12/03/20 08:13 Senna/Docusate Sodium (Senna Plus) 1 tab DAILY PO 11/30/20 09:00 12/03/20 08:13 Tamsulosin HCl (Flomax) 0.4 mg DAILY PO 11/30/20 09:00 12/03/20 08:13 Atorvastatin Calcium (Lipitor) 40 mg QHS PO 11/30/20 21:00 12/03/20 21:00 Olanzapine (ZyPREXA ZYDIS) 2.5 mg PRN Q2HR PRN PO PSYCHOSIS 11/30/20 04:45 Multi-Ingredient Ointment (Analgesic [place]) 1 denia PRN QID PRN TP MUSCLE PAIN 11/30/20 04:45 Al Hydroxide/Mg Hydroxide (Mylanta Plus Xs) 15 ml PRN AFTMEALHC PRN PO DYSPEPSIA 11/30/20 04:45 Magnesium Hydroxide (Milk Of Magnesia) 2,400 mg PRN QHS PRN PO CONSTIPATION 11/30/20 04:45 Oxycodone HCl (Roxicodone) 5 mg PRN Q3HRS PRN PO SEVERE OR PERSISTANT PAIN 11/30/20 13:30 Divalproex Sodium (Depakote Er) 750 mg HS PO 12/04/20 21:00 Olanzapine (ZyPREXA) 5 mg DAILY PO 12/04/20 09:00 I have reviewed the current psychotropics carefully including drug interactions. Risk benefit ratio favors no change other than as noted in my dictated progress note. Diagnosis: Problems: (1) Impulse control disorder, unspecified (2) Anxiety disorder, unspecified (3) Dementia, vascular, with depression (4) Dementia, vascular, with delusions (5) Dementia in Alzheimer's disease with depression (6) Dementia in Alzheimer's disease with delusions (7) Dementia of the Alzheimer's type with early onset with behavioral disturbance (8) Major neurocognitive disorder SONIA REILLY MD Dec 04, 2020 06:59
[2020-12-04] MEDS: SERTRALINE 100 MG TABLET. PO SCH (08:15)
[2020-12-04] MEDS: SENNOSIDES/DOCUSATE 8.6/50MG TABLET. PO SCH (08:15)
[2020-12-04] MEDS: DONEPEZIL HCL 10 MG TABLET PO SCH (08:15)
[2020-12-04] MEDS: ASPIRIN CHEWABLE 81 MG TABLET. PO SCH (08:15)
[2020-12-04] MEDS: POLYETHYLENE GLYCOL 3350 17 GM PACKET. PO SCH (08:15)
[2020-12-04] MEDS: TAMSULOSIN 0.4 MG CAP.ER.24H. PO SCH (08:15)
[2020-12-04] MEDS: OLANZapine 5 MG TABLET PO SCH ×3 (08:15→20:03)
--- NOTE | 2020-12-04 14:20 | NUR ---
NURSING NOTE: Pt is alert to self, confused to all other. Wears glasses at all times for vision correction. Affect is flat, but calm et compliant with medications et treatment. Ambulates independently in halls without device. Wanders in halls, often stopping staff to ask how he "got here." Frequent reorientation required, but retention of information is short lived. Despite the wandering tendency, he is not exhibiting exit seeking behavior. Denies pain, or any medical concern at this time.
[2020-12-04 16:12] VITALS: BP 121/74
[2020-12-04] MEDS: ATORVASTATIN CALCIUM 20 MG TABLET PO SCH (20:02)
[2020-12-04] MEDS: DIVALPROEX ER 250 MG TAB.ER.24H. PO SCH (20:02)
[2020-12-04] MEDS: MELATONIN 3 MG TABLET PO SCH (20:03)
--- NOTE | 2020-12-04 22:05 | PDOC ---
Exam Note: Obey Note: Please also refer to the separate dictated note~for this date of service dictated separately.~Patient seen individually. Discussed the patient with Nursing staff reviewed the chart.~Reviewed interim history and current functioning. Reviewed vital signs,~Labs/ Radiology~and current medications noted below. Continue current treatment with the changes noted in the dictated addendum note Assessment: Vital Signs/I&O: Vital Signs Date Time Temp Pulse Resp B/P (MAP) Pulse Ox O2 Delivery O2 Flow Rate FiO2 12/04/20 16:12 97.0 87 20 121/74 (90) 94 Room Air I & O 12/03/20 12/03/20 12/04/20 15:00 23:00 07:00 Intake Total 840 ml 360 ml 240 ml Balance 840 ml 360 ml 240 ml Current Medications: Meds: Current Medications Medications (Trade) Dose Ordered Sig/Veto Route PRN Reason Start Time Stop Time Status Last Admin Dose Admin Divalproex Sodium (Depakote Er) 500 mg DAILY PO 11/30/20 09:00 12/03/20 17:20 DC 12/03/20 08:13 Donepezil HCl (Aricept) 10 mg DAILY PO 11/30/20 09:00 12/04/20 08:15 Melatonin (Melatonin) 3 mg HS PO 11/30/20 21:00 12/04/20 20:03 Olanzapine (ZyPREXA) 5 mg AFTRNOON PO 11/30/20 13:00 12/04/20 12:03 Olanzapine (ZyPREXA) 5 mg HS PO 11/30/20 21:00 12/04/20 20:03 Olanzapine (ZyPREXA) 10 mg DAILY PO 11/30/20 09:00 12/03/20 19:22 DC 12/03/20 08:13 Sertraline HCl (Zoloft) 100 mg DAILY PO 11/30/20 09:00 12/04/20 08:15 Acetaminophen (Tylenol) 650 mg PRN Q6HRS PRN PO MILD PAIN / TEMP > 100.3'F 11/30/20 04:45 Aspirin (Aspirin Chewable) 81 mg DAILY PO 11/30/20 09:00 12/04/20 08:15 Polyethylene Glycol (miraLAX) 17 gm DAILY PO 11/30/20 09:00 12/04/20 08:15 Senna/Docusate Sodium (Senna Plus) 1 tab DAILY PO 11/30/20 09:00 12/04/20 08:15 Tamsulosin HCl (Flomax) 0.4 mg DAILY PO 11/30/20 09:00 12/04/20 08:15 Atorvastatin Calcium (Lipitor) 40 mg QHS PO 11/30/20 21:00 12/04/20 20:02 Olanzapine (ZyPREXA ZYDIS) 2.5 mg PRN Q2HR PRN PO PSYCHOSIS 11/30/20 04:45 Multi-Ingredient Ointment (Analgesic [place]) 1 denia PRN QID PRN TP MUSCLE PAIN 11/30/20 04:45 Al Hydroxide/Mg Hydroxide (Mylanta Plus Xs) 15 ml PRN AFTMEALHC PRN PO DYSPEPSIA 11/30/20 04:45 Magnesium Hydroxide (Milk Of Magnesia) 2,400 mg PRN QHS PRN PO CONSTIPATION 11/30/20 04:45 Oxycodone HCl (Roxicodone) 5 mg PRN Q3HRS PRN PO SEVERE OR PERSISTANT PAIN 11/30/20 13:30 Divalproex Sodium (Depakote Er) 750 mg HS PO 12/04/20 21:00 12/04/20 20:02 Olanzapine (ZyPREXA) 5 mg DAILY PO 12/04/20 09:00 12/04/20 08:15 Current Medications Medications (Trade) Dose Ordered Sig/Veto Route PRN Reason Start Time Stop Time Status Last Admin Dose Admin Divalproex Sodium (Depakote Er) 750 mg HS PO 12/04/20 21:00 12/04/20 20:02 Olanzapine (ZyPREXA) 5 mg DAILY PO 12/04/20 09:00 12/04/20 08:15 I have reviewed the current psychotropics carefully including drug interactions. Risk benefit ratio favors no change other than as noted in my dictated progress note. Diagnosis: Problems: (1) Impulse control disorder, unspecified (2) Anxiety disorder, unspecified (3) Dementia, vascular, with depression (4) Dementia, vascular, with delusions (5) Dementia in Alzheimer's disease with depression (6) Dementia in Alzheimer's disease with delusions (7) Dementia of the Alzheimer's type with early onset with behavioral disturbance (8) Major neurocognitive disorder SONIA REILLY MD Dec 04, 2020 22:05
--- NOTE | 2020-12-04 23:26 | NUR ---
Pt wandering unit this evening, frequently laying himself down in other pt's beds. Compliant with redirection and whole medications. No agitation or aggression.
[2020-12-05 05:47] VITALS: BP 126/78
[2020-12-05] MEDS: TAMSULOSIN 0.4 MG CAP.ER.24H. PO SCH (08:30)
[2020-12-05] MEDS: DONEPEZIL HCL 10 MG TABLET PO SCH (08:30)
[2020-12-05] MEDS: SERTRALINE 100 MG TABLET. PO SCH (08:30)
[2020-12-05] MEDS: OLANZapine 5 MG TABLET PO SCH ×3 (08:30→20:22)
[2020-12-05] MEDS: SENNOSIDES/DOCUSATE 8.6/50MG TABLET. PO SCH (08:30)
[2020-12-05] MEDS: POLYETHYLENE GLYCOL 3350 17 GM PACKET. PO SCH (08:30)
[2020-12-05] MEDS: ASPIRIN CHEWABLE 81 MG TABLET. PO SCH (08:30)
--- NOTE | 2020-12-05 09:36 | NUR ---
Pt has been appropriate and calm this morning. His behaviors with others have been appropriate this morning. He is A&O to self, confused and at times disorganized. He is compliant with whole medications. He is absent of SI/HI/VH/AH/delusions at this time. He denies pain when asked. Plan of care continues, will pass to next shift.
[2020-12-05 16:28] VITALS: BP 100/65
[2020-12-05] MEDS: ATORVASTATIN CALCIUM 20 MG TABLET PO SCH (20:23)
[2020-12-05] MEDS: MELATONIN 3 MG TABLET PO SCH (20:23)
[2020-12-05] MEDS: DIVALPROEX ER 250 MG TAB.ER.24H. PO SCH (20:23)
--- NOTE | 2020-12-05 22:01 | PDOC ---
Exam Note: Obey Note: Please also refer to the separate dictated note~for this date of service dictated separately.~Patient seen individually. Discussed the patient with Nursing staff reviewed the chart.~Reviewed interim history and current functioning. Reviewed vital signs,~Labs/ Radiology~and current medications noted below. Continue current treatment with the changes noted in the dictated addendum note Assessment: Vital Signs/I&O: Vital Signs Date Time Temp Pulse Resp B/P (MAP) Pulse Ox O2 Delivery O2 Flow Rate FiO2 12/05/20 16:28 98.1 90 18 100/65 (77) 97 Room Air I & O 12/04/20 12/04/20 12/05/20 15:00 23:00 07:00 Intake Total 960 ml 480 ml Balance 960 ml 480 ml Current Medications: Meds: Current Medications Medications (Trade) Dose Ordered Sig/Veto Route PRN Reason Start Time Stop Time Status Last Admin Dose Admin Divalproex Sodium (Depakote Er) 500 mg DAILY PO 11/30/20 09:00 12/03/20 17:20 DC 12/03/20 08:13 Donepezil HCl (Aricept) 10 mg DAILY PO 11/30/20 09:00 12/05/20 08:30 Melatonin (Melatonin) 3 mg HS PO 11/30/20 21:00 12/05/20 20:23 Olanzapine (ZyPREXA) 5 mg AFTRNOON PO 11/30/20 13:00 12/05/20 12:44 Olanzapine (ZyPREXA) 5 mg HS PO 11/30/20 21:00 12/05/20 20:22 Olanzapine (ZyPREXA) 10 mg DAILY PO 11/30/20 09:00 12/03/20 19:22 DC 12/03/20 08:13 Sertraline HCl (Zoloft) 100 mg DAILY PO 11/30/20 09:00 12/05/20 08:30 Acetaminophen (Tylenol) 650 mg PRN Q6HRS PRN PO MILD PAIN / TEMP > 100.3'F 11/30/20 04:45 Aspirin (Aspirin Chewable) 81 mg DAILY PO 11/30/20 09:00 12/05/20 08:30 Polyethylene Glycol (miraLAX) 17 gm DAILY PO 11/30/20 09:00 12/05/20 08:30 Senna/Docusate Sodium (Senna Plus) 1 tab DAILY PO 11/30/20 09:00 12/05/20 08:30 Tamsulosin HCl (Flomax) 0.4 mg DAILY PO 11/30/20 09:00 12/05/20 08:30 Atorvastatin Calcium (Lipitor) 40 mg QHS PO 11/30/20 21:00 12/05/20 20:23 Olanzapine (ZyPREXA ZYDIS) 2.5 mg PRN Q2HR PRN PO PSYCHOSIS 11/30/20 04:45 Multi-Ingredient Ointment (Analgesic [place]) 1 denia PRN QID PRN TP MUSCLE PAIN 11/30/20 04:45 Al Hydroxide/Mg Hydroxide (Mylanta Plus Xs) 15 ml PRN AFTMEALHC PRN PO DYSPEPSIA 11/30/20 04:45 Magnesium Hydroxide (Milk Of Magnesia) 2,400 mg PRN QHS PRN PO CONSTIPATION 11/30/20 04:45 Oxycodone HCl (Roxicodone) 5 mg PRN Q3HRS PRN PO SEVERE OR PERSISTANT PAIN 11/30/20 13:30 Divalproex Sodium (Depakote Er) 750 mg HS PO 12/04/20 21:00 12/05/20 20:23 Olanzapine (ZyPREXA) 5 mg DAILY PO 12/04/20 09:00 12/05/20 08:30 I have reviewed the current psychotropics carefully including drug interactions. Risk benefit ratio favors no change other than as noted in my dictated progress note. Diagnosis: Problems: (1) Impulse control disorder, unspecified (2) Anxiety disorder, unspecified (3) Dementia, vascular, with depression (4) Dementia, vascular, with delusions (5) Dementia in Alzheimer's disease with depression (6) Dementia in Alzheimer's disease with delusions (7) Dementia of the Alzheimer's type with early onset with behavioral disturbance (8) Major neurocognitive disorder SONIA REILLY MD Dec 05, 2020 22:01
--- NOTE | 2020-12-05 22:51 | NUR ---
Patient is located in the day room on assumption of care, eating a snack and watching a movie with his peers. He is flat, disorganized, pleasant. Compliant with assessments and medications whole. No agitation or aggression. Patient denies any pain or discomfort. He appears to be sleeping comfortably at present time. Will continue to monitor.
[2020-12-06 06:04] VITALS: BP 104/68
--- NOTE | 2020-12-06 07:20 | PDOC ---
Exam Note: Obey Note: This note is a late entry for 12/04/2020 covers elements not covered in my initial note. Subjective: The patient was seen individually in the evening of 12/04/2020 with Kim EDGAR, discussed and reviewed the chart. The patient slept 7 hours previous night. The patient is compliant with medications. He is confused, wandering, always asking how did he get here. Review of Systems: Ambulation impaired with walker. No CV, , pulmonary, eye, ENT system symptoms on review. Reliability poor. Mental Status Exam: The patient is reasonably oriented to himself. Speech coherent. Abstraction fair. Computation impaired. Language function intact. Mood and affect depressed, anxious. No suicidal or homicidal ideation. Laboratory Data: Reviewed. Impression: Major neurocognitive disorder, Alzheimer, vascular with delusion, depression, behavioral disturbance. Anxiety disorder unspecified. Impulse control disorder unspecified. Plan: No change from initial note. Assessment: Vital Signs/I&O: Vital Signs Date Time Temp Pulse Resp B/P (MAP) Pulse Ox O2 Delivery O2 Flow Rate FiO2 12/06/20 06:04 96.8 63 16 104/68 (80) 99 Room Air I & O 12/05/20 12/05/20 12/06/20 14:59 22:59 06:59 Intake Total 360 ml 840 ml Balance 360 ml 840 ml Current Medications: Meds: Current Medications Medications (Trade) Dose Ordered Sig/Veto Route PRN Reason Start Time Stop Time Status Last Admin Dose Admin Divalproex Sodium (Depakote Er) 500 mg DAILY PO 11/30/20 09:00 12/03/20 17:20 DC 12/03/20 08:13 Donepezil HCl (Aricept) 10 mg DAILY PO 11/30/20 09:00 12/05/20 08:30 Melatonin (Melatonin) 3 mg HS PO 11/30/20 21:00 12/05/20 20:23 Olanzapine (ZyPREXA) 5 mg AFTRNOON PO 11/30/20 13:00 12/05/20 12:44 Olanzapine (ZyPREXA) 5 mg HS PO 11/30/20 21:00 12/05/20 20:22 Olanzapine (ZyPREXA) 10 mg DAILY PO 11/30/20 09:00 12/03/20 19:22 DC 12/03/20 08:13 Sertraline HCl (Zoloft) 100 mg DAILY PO 11/30/20 09:00 12/05/20 08:30 Acetaminophen (Tylenol) 650 mg PRN Q6HRS PRN PO MILD PAIN / TEMP > 100.3'F 11/30/20 04:45 Aspirin (Aspirin Chewable) 81 mg DAILY PO 11/30/20 09:00 12/05/20 08:30 Polyethylene Glycol (miraLAX) 17 gm DAILY PO 11/30/20 09:00 12/05/20 08:30 Senna/Docusate Sodium (Senna Plus) 1 tab DAILY PO 11/30/20 09:00 12/05/20 08:30 Tamsulosin HCl (Flomax) 0.4 mg DAILY PO 11/30/20 09:00 12/05/20 08:30 Atorvastatin Calcium (Lipitor) 40 mg QHS PO 11/30/20 21:00 12/05/20 20:23 Olanzapine (ZyPREXA ZYDIS) 2.5 mg PRN Q2HR PRN PO PSYCHOSIS 11/30/20 04:45 Multi-Ingredient Ointment (Analgesic [place]) 1 denia PRN QID PRN TP MUSCLE PAIN 11/30/20 04:45 Al Hydroxide/Mg Hydroxide (Mylanta Plus Xs) 15 ml PRN AFTMEALHC PRN PO DYSPEPSIA 11/30/20 04:45 Magnesium Hydroxide (Milk Of Magnesia) 2,400 mg PRN QHS PRN PO CONSTIPATION 11/30/20 04:45 Oxycodone HCl (Roxicodone) 5 mg PRN Q3HRS PRN PO SEVERE OR PERSISTANT PAIN 11/30/20 13:30 Divalproex Sodium (Depakote Er) 750 mg HS PO 12/04/20 21:00 12/05/20 20:23 Olanzapine (ZyPREXA) 5 mg DAILY PO 12/04/20 09:00 12/05/20 08:30 I have reviewed the current psychotropics carefully including drug interactions. Risk benefit ratio favors no change other than as noted in my dictated progress note. Diagnosis: Problems: (1) Impulse control disorder, unspecified (2) Anxiety disorder, unspecified (3) Dementia, vascular, with depression (4) Dementia, vascular, with delusions (5) Dementia in Alzheimer's disease with depression (6) Dementia in Alzheimer's disease with delusions (7) Dementia of the Alzheimer's type with early onset with behavioral disturbance (8) Major neurocognitive disorder SONIA REILLY MD Dec 06, 2020 07:20
--- NOTE | 2020-12-06 07:36 | PDOC ---
Exam Note: Obey Note: This note is a late entry for 12/05/2020 covers elements not covered in my initial note. Subjective: The patient was seen individually in the evening of 12/05/2020 with Madelyn EDGAR, discussed and reviewed the chart. The patient slept 8-1/4 hours previous night. The patient remains confused, wanders the hallways. He does redirect. Review of Systems: Ambulation impaired with walker. No CV, , pulmonary, eye, ENT system symptoms on review. Mental Status Exam: The patient is reasonably oriented to himself. Speech coherent. Abstraction fair. Computation impaired. Language function intact. Mood and affect depressed, anxious. No suicidal or homicidal ideation. Laboratory Data: Reviewed. Impression: Major neurocognitive disorder, Alzheimer, vascular with delusion, depression, behavioral disturbance. Anxiety disorder unspecified. Impulse control disorder unspecified. Plan: No change from initial note. It is unclear what benefit Aricept would have on him at this stage of his dementia and we may consider stopping it. Labs are being repeated for valproic acid level. Adjust further as clinically indicated. Assessment: Vital Signs/I&O: Vital Signs Date Time Temp Pulse Resp B/P (MAP) Pulse Ox O2 Delivery O2 Flow Rate FiO2 12/06/20 06:04 96.8 63 16 104/68 (80) 99 Room Air I & O 12/05/20 12/05/20 12/06/20 14:59 22:59 06:59 Intake Total 360 ml 840 ml Balance 360 ml 840 ml Current Medications: Meds: Current Medications Medications (Trade) Dose Ordered Sig/Veto Route PRN Reason Start Time Stop Time Status Last Admin Dose Admin Divalproex Sodium (Depakote Er) 500 mg DAILY PO 11/30/20 09:00 12/03/20 17:20 DC 12/03/20 08:13 Donepezil HCl (Aricept) 10 mg DAILY PO 11/30/20 09:00 12/05/20 08:30 Melatonin (Melatonin) 3 mg HS PO 11/30/20 21:00 12/05/20 20:23 Olanzapine (ZyPREXA) 5 mg AFTRNOON PO 11/30/20 13:00 12/05/20 12:44 Olanzapine (ZyPREXA) 5 mg HS PO 11/30/20 21:00 12/05/20 20:22 Olanzapine (ZyPREXA) 10 mg DAILY PO 11/30/20 09:00 12/03/20 19:22 DC 12/03/20 08:13 Sertraline HCl (Zoloft) 100 mg DAILY PO 11/30/20 09:00 12/05/20 08:30 Acetaminophen (Tylenol) 650 mg PRN Q6HRS PRN PO MILD PAIN / TEMP > 100.3'F 11/30/20 04:45 Aspirin (Aspirin Chewable) 81 mg DAILY PO 11/30/20 09:00 12/05/20 08:30 Polyethylene Glycol (miraLAX) 17 gm DAILY PO 11/30/20 09:00 12/05/20 08:30 Senna/Docusate Sodium (Senna Plus) 1 tab DAILY PO 11/30/20 09:00 12/05/20 08:30 Tamsulosin HCl (Flomax) 0.4 mg DAILY PO 11/30/20 09:00 12/05/20 08:30 Atorvastatin Calcium (Lipitor) 40 mg QHS PO 11/30/20 21:00 12/05/20 20:23 Olanzapine (ZyPREXA ZYDIS) 2.5 mg PRN Q2HR PRN PO PSYCHOSIS 11/30/20 04:45 Multi-Ingredient Ointment (Analgesic [place]) 1 denia PRN QID PRN TP MUSCLE PAIN 11/30/20 04:45 Al Hydroxide/Mg Hydroxide (Mylanta Plus Xs) 15 ml PRN AFTMEALHC PRN PO DYSPEPSIA 11/30/20 04:45 Magnesium Hydroxide (Milk Of Magnesia) 2,400 mg PRN QHS PRN PO CONSTIPATION 11/30/20 04:45 Oxycodone HCl (Roxicodone) 5 mg PRN Q3HRS PRN PO SEVERE OR PERSISTANT PAIN 11/30/20 13:30 Divalproex Sodium (Depakote Er) 750 mg HS PO 12/04/20 21:00 12/05/20 20:23 Olanzapine (ZyPREXA) 5 mg DAILY PO 12/04/20 09:00 12/05/20 08:30 I have reviewed the current psychotropics carefully including drug interactions. Risk benefit ratio favors no change other than as noted in my dictated progress note. Diagnosis: Problems: (1) Impulse control disorder, unspecified (2) Anxiety disorder, unspecified (3) Dementia, vascular, with depression (4) Dementia, vascular, with delusions (5) Dementia in Alzheimer's disease with depression (6) Dementia in Alzheimer's disease with delusions (7) Dementia of the Alzheimer's type with early onset with behavioral disturbance (8) Major neurocognitive disorder SONIA REILLY MD Dec 06, 2020 07:36
[2020-12-06] MEDS: POLYETHYLENE GLYCOL 3350 17 GM PACKET. PO SCH (08:11)
[2020-12-06] MEDS: ASPIRIN CHEWABLE 81 MG TABLET. PO SCH (08:11)
[2020-12-06] MEDS: SENNOSIDES/DOCUSATE 8.6/50MG TABLET. PO SCH (08:11)
[2020-12-06] MEDS: OLANZapine 5 MG TABLET PO SCH ×3 (08:11→20:35)
[2020-12-06] MEDS: DONEPEZIL HCL 10 MG TABLET PO SCH (08:11)
[2020-12-06] MEDS: SERTRALINE 100 MG TABLET. PO SCH (08:12)
[2020-12-06] MEDS: TAMSULOSIN 0.4 MG CAP.ER.24H. PO SCH (08:12)
--- NOTE | 2020-12-06 09:56 | NUR ---
Pt A&O to name and only. He remains confused and forgetful. He is compliant with whole medications. He continues to be very quiet and introverted, not interacting much with other people. He is absent of SI/HI/VH/AH/delusions/pain. No wandering behaviors observed so far. Plan of care continues, will pass to next shift.
[2020-12-06 16:20] VITALS: BP 117/74
[2020-12-06] MEDS: DIVALPROEX ER 250 MG TAB.ER.24H. PO SCH (20:35)
[2020-12-06] MEDS: ATORVASTATIN CALCIUM 20 MG TABLET PO SCH (20:35)
[2020-12-06] MEDS: MELATONIN 3 MG TABLET PO SCH (20:35)
--- NOTE | 2020-12-06 23:21 | PDOC ---
Exam Note: Obey Note: Please also refer to the separate dictated note~for this date of service dictated separately.~Patient seen individually. Discussed the patient with Nursing staff reviewed the chart.~Reviewed interim history and current functioning. Reviewed vital signs,~Labs/ Radiology~and current medications noted below. Continue current treatment with the changes noted in the dictated addendum note Assessment: Vital Signs/I&O: Vital Signs Date Time Temp Pulse Resp B/P (MAP) Pulse Ox O2 Delivery O2 Flow Rate FiO2 12/06/20 16:20 98.0 86 20 117/74 (88) 98 12/06/20 06:04 Room Air I & O 12/05/20 12/05/20 12/06/20 15:00 23:00 07:00 Intake Total 360 ml 840 ml Balance 360 ml 840 ml Current Medications: Meds: Current Medications Medications (Trade) Dose Ordered Sig/Veto Route PRN Reason Start Time Stop Time Status Last Admin Dose Admin Divalproex Sodium (Depakote Er) 500 mg DAILY PO 11/30/20 09:00 12/03/20 17:20 DC 12/03/20 08:13 Donepezil HCl (Aricept) 10 mg DAILY PO 11/30/20 09:00 12/06/20 08:11 Melatonin (Melatonin) 3 mg HS PO 11/30/20 21:00 12/06/20 20:35 Olanzapine (ZyPREXA) 5 mg AFTRNOON PO 11/30/20 13:00 12/06/20 12:08 Olanzapine (ZyPREXA) 5 mg HS PO 11/30/20 21:00 12/06/20 20:35 Olanzapine (ZyPREXA) 10 mg DAILY PO 11/30/20 09:00 12/03/20 19:22 DC 12/03/20 08:13 Sertraline HCl (Zoloft) 100 mg DAILY PO 11/30/20 09:00 12/06/20 08:12 Acetaminophen (Tylenol) 650 mg PRN Q6HRS PRN PO MILD PAIN / TEMP > 100.3'F 11/30/20 04:45 Aspirin (Aspirin Chewable) 81 mg DAILY PO 11/30/20 09:00 12/06/20 08:11 Polyethylene Glycol (miraLAX) 17 gm DAILY PO 11/30/20 09:00 12/06/20 08:11 Senna/Docusate Sodium (Senna Plus) 1 tab DAILY PO 11/30/20 09:00 12/06/20 08:11 Tamsulosin HCl (Flomax) 0.4 mg DAILY PO 11/30/20 09:00 12/06/20 08:12 Atorvastatin Calcium (Lipitor) 40 mg QHS PO 11/30/20 21:00 12/06/20 20:35 Olanzapine (ZyPREXA ZYDIS) 2.5 mg PRN Q2HR PRN PO PSYCHOSIS 11/30/20 04:45 Multi-Ingredient Ointment (Analgesic [place]) 1 denia PRN QID PRN TP MUSCLE PAIN 11/30/20 04:45 Al Hydroxide/Mg Hydroxide (Mylanta Plus Xs) 15 ml PRN AFTMEALHC PRN PO DYSPEPSIA 11/30/20 04:45 Magnesium Hydroxide (Milk Of Magnesia) 2,400 mg PRN QHS PRN PO CONSTIPATION 11/30/20 04:45 Oxycodone HCl (Roxicodone) 5 mg PRN Q3HRS PRN PO SEVERE OR PERSISTANT PAIN 11/30/20 13:30 Divalproex Sodium (Depakote Er) 750 mg HS PO 12/04/20 21:00 12/06/20 20:35 Olanzapine (ZyPREXA) 5 mg DAILY PO 12/04/20 09:00 12/06/20 08:11 I have reviewed the current psychotropics carefully including drug interactions. Risk benefit ratio favors no change other than as noted in my dictated progress note. Diagnosis: Problems: (1) Impulse control disorder, unspecified (2) Anxiety disorder, unspecified (3) Dementia, vascular, with depression (4) Dementia, vascular, with delusions (5) Dementia in Alzheimer's disease with depression (6) Dementia in Alzheimer's disease with delusions (7) Dementia of the Alzheimer's type with early onset with behavioral disturbance (8) Major neurocognitive disorder SONIA REILLY MD Dec 06, 2020 23:21
[2020-12-07 06:42] VITALS: BP 118/66
[2020-12-07 07:10] LABS: BASO % 1 % (0-3); EOS # 0.1 x10^3/uL (0.0-0.7); EOS % 1 % (0-3); HEMATOCRIT 34.5 % (39.0-53.0); HEMOGLOBIN 11.3 g/dL (13.0-17.5); LYMPH # 1.2 x10^3/uL (1.0-4.8); LYMPH % 27 % (24-48); MEAN CORPUSCULAR HEMOGLOBIN 28 pg (25-35); MEAN CORPUSCULAR HGB CONC 33 g/dL (31-37); MEAN CORPUSCULAR VOLUME 86 fL (79-100); MONO # 0.4 x10^3/uL (0.0-1.1); MONO % 10 % (0-9); NEUT # 2.7 x10^3uL (1.8-7.7); NEUT % 61 % (31-73); PLATELET COUNT 155 x10^3/uL (140-400); RED BLOOD COUNT 4.01 x10^6/uL (4.30-5.70); RED CELL DISTRIBUTION WIDTH 17.5 % (11.5-14.5); WHITE BLOOD COUNT 4.5 x10^3/uL (4.0-11.0)
[2020-12-07 07:17] LABS: ALBUMIN 3.1 g/dL (3.4-5.0); ALBUMIN/GLOBULIN RATIO 1.1 (1.0-1.7); ALK PHOS 104 U/L (46-116); ALT (SGPT) 23 U/L (16-63); ANION GAP 7 (6-14); AST (SGOT) 14 U/L (15-37); BLOOD UREA NITROGEN 19 mg/dL (8-26); BUN/CREATININE RATIO 17 (6-20); CALCIUM 8.9 mg/dL (8.5-10.1); CARBON DIOXIDE 29 mmol/L (21-32); CHLORIDE 110 mmol/L (98-107); CREATININE 1.1 mg/dL (0.7-1.3); GFR 64.2; GLUCOSE 82 mg/dL (70-99); POTASSIUM 4.4 mmol/L (3.5-5.1); SODIUM 146 mmol/L (136-145); TOTAL BILIRUBIN 0.4 mg/dL (0.2-1.0); TOTAL PROTEIN 5.8 g/dL (6.4-8.2)
[2020-12-07 07:33] LABS: VAL ACID 57 mcg/mL (50-100)
[2020-12-07] MEDS: SENNOSIDES/DOCUSATE 8.6/50MG TABLET. PO SCH (08:20)
[2020-12-07] MEDS: SERTRALINE 100 MG TABLET. PO SCH (08:20)
[2020-12-07] MEDS: DONEPEZIL HCL 10 MG TABLET PO SCH (08:20)
[2020-12-07] MEDS: ASPIRIN CHEWABLE 81 MG TABLET. PO SCH (08:20)
[2020-12-07] MEDS: OLANZapine 5 MG TABLET PO SCH ×3 (08:20→20:41)
[2020-12-07] MEDS: POLYETHYLENE GLYCOL 3350 17 GM PACKET. PO SCH (08:21)
[2020-12-07] MEDS: TAMSULOSIN 0.4 MG CAP.ER.24H. PO SCH (08:21)
--- NOTE | 2020-12-07 08:52 | RAD ---
Exam performed: CT head without contrast HISTORY: Bilateral subdural hematoma. DATE OF SERVICE: 12/07/2020. COMPARISON: 11/30/2020. TECHNIQUE: Contiguous helical acquisitions are obtained from the foramen magnum to the vertex without IV contrast. FINDINGS: Small left hemispheric acute subdural hematoma is seen without interval change. Bilateral subdural hy gromas are also seen. There is a small left lacunar infarct. Areas of low-attenuation in both periven tricular and subcortical deep white matter persisting small vessel ischemic changes are seen. The chioma varium is intact. IMPRESSION: No significant interval change. Electronically signed by: Shivani Matos MD (12/07/2020 8:50 AM) [facility]
[2020-12-07 15:51] VITALS: BP 124/78
[2020-12-07] MEDS: MELATONIN 3 MG TABLET PO SCH (20:41)
[2020-12-07] MEDS: ATORVASTATIN CALCIUM 20 MG TABLET PO SCH (20:41)
[2020-12-07] MEDS: DIVALPROEX ER 250 MG TAB.ER.24H. PO SCH (20:41)
--- NOTE | 2020-12-07 23:57 | NUR ---
Patient is located in in his room on assumption of care, awake in bed. He is flat, disorganized, pleasant. Compliant with assessments and medications whole. No agitation or aggression. Patient denies any pain or discomfort. He appears to be sleeping comfortably at present time. Will continue to monitor.
[2020-12-08 06:01] VITALS: BP 108/73
[2020-12-08] MEDS: ASPIRIN CHEWABLE 81 MG TABLET. PO SCH (08:40)
[2020-12-08] MEDS: SERTRALINE 100 MG TABLET. PO SCH (08:40)
[2020-12-08] MEDS: POLYETHYLENE GLYCOL 3350 17 GM PACKET. PO SCH (08:40)
[2020-12-08] MEDS: SENNOSIDES/DOCUSATE 8.6/50MG TABLET. PO SCH (08:41)
[2020-12-08] MEDS: TAMSULOSIN 0.4 MG CAP.ER.24H. PO SCH (08:41)
[2020-12-08] MEDS: OLANZapine 5 MG TABLET PO SCH ×3 (08:41→20:04)
[2020-12-08] MEDS: DONEPEZIL HCL 10 MG TABLET PO SCH (08:41)
--- NOTE | 2020-12-08 08:47 | RAD ---
EXAM: Head CT without contrast. HISTORY: Subdural hematoma follow-up. TECHNIQUE: Computed tomographic images of the head were obtained without contrast. *One or more of the following individualized dose reduction techniques were utilized for this examina tion: 1. Automated exposure control. 2. Adjustment of the mA and/or kV according to patient size. 3. Use of iterative reconstruction technique. COMPARISON: 12/07/2020 and 11/30/2020. FINDINGS: There has been slight interval decrease in the size and attenuation of the acute component of a mixed acute on chronic subdural hematoma along the left cerebral convexity. The acute subdural c omponent measures approximately 4 mm in thickness compared to a prior measurement of 5 mm. There is a lso a chronic subdural hematoma along the right cerebral convexity which is stable in appearance. The re is no significant midline shift. There is no mass effect. There is cerebral atrophy. There is decr eased attenuation within the cerebral white matter due to chronic small vessel disease. There are chr onic lacunar infarcts or choroid fissure cyst along the inferior aspects of both basal ganglia. The o rbits are unremarkable. There is a tiny right maxillary sinus mucous retention cysts. There is a righ t roseanna bullosa. The mastoid air cells are clear. No suspicious calvarial lesion is seen. IMPRESSION: 1. Slight interval decrease in the size and attenuation of the acute component of a mixed acute on ch ronic subdural hematoma along the left cerebral convexity, consistent with evolution of blood product s. 2. 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 3. Cerebral atrophy and extensive white matter changes due to chronic small vessel disease. Electronically signed by: Hoa Hart MD (12/08/2020 8:44 AM) [id number]
--- NOTE | 2020-12-08 09:24 | PDOC ---
Exam Note: Obey Note: This note is a late entry for 12/06/2020 covers elements not covered in my initial note. Subjective: The patient was seen on telehealth rounds in the evening of 12/06/2020 with the nursing staff taking the telehealth camera to each patient, which was on a secure portal, discussed and reviewed the chart with Madelyn EDGAR. The patient slept 6-1/2 hours previous night. The patient remains confused, wanders the hallways, somewhat withdrawn, flat affect. We will be repeating his labs and valproic acid level in the morning to adjust Depakote and repeat CT head on 12/08 to monitor the intracranial subdural. Review of Systems: Ambulation impaired with walker. No CV, , pulmonary, eye, ENT system symptoms on review. Mental Status Exam: The patient is reasonably oriented to himself. Speech coherent. Abstraction fair. Computation impaired. Language function intact. Mood and affect depressed, anxious. No suicidal or homicidal ideation. Laboratory Data: Reviewed. Impression: Major neurocognitive disorder, Alzheimer, vascular with delusion, depression, behavioral disturbance. Anxiety disorder unspecified. Impulse control disorder unspecified. Plan: No change from initial note and labs as noted above. Assessment: Vital Signs/I&O: Vital Signs Date Time Temp Pulse Resp B/P (MAP) Pulse Ox O2 Delivery O2 Flow Rate FiO2 12/08/20 06:01 96.9 68 16 108/73 (85) 98 12/07/20 15:51 Room Air I & O 12/07/20 12/07/20 12/08/20 15:00 23:00 07:00 Intake Total 480 ml 480 ml Balance 480 ml 480 ml Current Medications: Meds: Current Medications Medications (Trade) Dose Ordered Sig/Veto Route PRN Reason Start Time Stop Time Status Last Admin Dose Admin Divalproex Sodium (Depakote Er) 500 mg DAILY PO 11/30/20 09:00 12/03/20 17:20 DC 12/03/20 08:13 Donepezil HCl (Aricept) 10 mg DAILY PO 11/30/20 09:00 12/08/20 08:41 Melatonin (Melatonin) 3 mg HS PO 11/30/20 21:00 12/07/20 20:41 Olanzapine (ZyPREXA) 5 mg AFTRNOON PO 11/30/20 13:00 12/06/20 12:08 Olanzapine (ZyPREXA) 5 mg HS PO 11/30/20 21:00 12/07/20 20:41 Olanzapine (ZyPREXA) 10 mg DAILY PO 11/30/20 09:00 12/03/20 19:22 DC 12/03/20 08:13 Sertraline HCl (Zoloft) 100 mg DAILY PO 11/30/20 09:00 12/08/20 08:40 Acetaminophen (Tylenol) 650 mg PRN Q6HRS PRN PO MILD PAIN / TEMP > 100.3'F 11/30/20 04:45 12/07/20 08:21 Aspirin (Aspirin Chewable) 81 mg DAILY PO 11/30/20 09:00 12/08/20 08:40 Polyethylene Glycol (miraLAX) 17 gm DAILY PO 11/30/20 09:00 12/08/20 08:40 Senna/Docusate Sodium (Senna Plus) 1 tab DAILY PO 11/30/20 09:00 12/08/20 08:41 Tamsulosin HCl (Flomax) 0.4 mg DAILY PO 11/30/20 09:00 12/08/20 08:41 Atorvastatin Calcium (Lipitor) 40 mg QHS PO 11/30/20 21:00 12/07/20 20:41 Olanzapine (ZyPREXA ZYDIS) 2.5 mg PRN Q2HR PRN PO PSYCHOSIS 11/30/20 04:45 Multi-Ingredient Ointment (Analgesic [place]) 1 denia PRN QID PRN TP MUSCLE PAIN 11/30/20 04:45 Al Hydroxide/Mg Hydroxide (Mylanta Plus Xs) 15 ml PRN AFTMEALHC PRN PO DYSPEPSIA 11/30/20 04:45 Magnesium Hydroxide (Milk Of Magnesia) 2,400 mg PRN QHS PRN PO CONSTIPATION 11/30/20 04:45 Oxycodone HCl (Roxicodone) 5 mg PRN Q3HRS PRN PO SEVERE OR PERSISTANT PAIN 11/30/20 13:30 Divalproex Sodium (Depakote Er) 750 mg HS PO 12/04/20 21:00 12/07/20 20:41 Olanzapine (ZyPREXA) 5 mg DAILY PO 12/04/20 09:00 12/08/20 08:41 I have reviewed the current psychotropics carefully including drug interactions. Risk benefit ratio favors no change other than as noted in my dictated progress note. Diagnosis: Problems: (1) Impulse control disorder, unspecified (2) Anxiety disorder, unspecified (3) Dementia, vascular, with depression (4) Dementia, vascular, with delusions (5) Dementia in Alzheimer's disease with depression (6) Dementia in Alzheimer's disease with delusions (7) Dementia of the Alzheimer's type with early onset with behavioral disturbance (8) Major neurocognitive disorder SONIA REILLY MD Dec 08, 2020 09:24
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
--- NOTE | 2020-12-08 11:43 | NUR ---
MARIAM contacted pt dtr, Hope to discuss placement options. Hope reports that her brother had a couple places to look at in [place]. One of them being the [facility]. Hope and MARIAM went over the voicemail received from Sanjuana at the [facility] who reports that they have accepted pt; it was SW understanding that they are willing to consider him for placement but has not accepted. Hope mentioned another facility that could be a possibility; however, she is waiting to hear back from them before making any decisions. SW encourage Hope to keep looking at options and MARIAM was more than happy to send referrals wherever. Hope did request that SW contact [facility] to see about an opening. MARIAM will contact Minerva and let Hope know the results of that conversation.
--- NOTE | 2020-12-08 12:45 | NUR ---
MARIAM contacted Minerva at [facility] to see about any openings. MARIAM discussed pt case in which [place] reports talking to pt family and planned to give them a tour; however, they sold their last opening this morning and would have to either put pt on a waiting list or send the referral to [facility]. MARIAM will make sure to pass this on to the family.
--- NOTE | 2020-12-08 13:28 | NUR ---
Nursing Note Patient has been up wandering around hallway, keeping to himself per usual, patient took medications well, answers questions appropriately, no other acute concerns.
--- NOTE | 2020-12-08 15:38 | NUR ---
Treatment team note: Pt Hope shea participated in treatment team via telephone. Pt is sleeping on average 7.5 hours per night and eating roughly 100% of meals. Pt is A/O to self only, but medication compliant and cooperative with all staff direction. Pt is pleasant and interacting with staff a bit more; although he attempts to be withdrawn to his room, pt can be encouraged to come out and join group activities. It is notes that pt has attended four groups this last week with minimal to moderate participation. Pt does walk the hallways but not in exit seeking fashion; pt appears to be more restless and wanders to pass time. Pt has not had any physical or verbal aggression since admission. Pt family is looking into many different options for placement as pt is not able to return to [facility] at this time. SW will continue to work with pt family on making final discharge arrangements.
[2020-12-08 15:43] VITALS: BP 89/65
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
[2020-12-08] MEDS: DIVALPROEX ER 250 MG TAB.ER.24H. PO SCH (20:04)
[2020-12-08] MEDS: MELATONIN 3 MG TABLET PO SCH (20:04)
[2020-12-08] MEDS: ATORVASTATIN CALCIUM 20 MG TABLET PO SCH (20:04)
--- NOTE | 2020-12-08 22:11 | PDOC ---
Exam Note: Obey Note: Please also refer to the separate dictated note~for this date of service dictated separately.~Patient seen individually. Discussed the patient with Nursing staff reviewed the chart.~Reviewed interim history and current functioning. Reviewed vital signs,~Labs/ Radiology~and current medications noted below. Continue current treatment with the changes noted in the dictated addendum note Assessment: Vital Signs/I&O: Vital Signs Date Time Temp Pulse Resp B/P (MAP) Pulse Ox O2 Delivery O2 Flow Rate FiO2 12/08/20 15:43 97.7 93 18 89/65 (73) 95 12/07/20 15:51 Room Air I & O 12/07/20 12/07/20 12/08/20 15:00 23:00 07:00 Intake Total 480 ml 480 ml Balance 480 ml 480 ml Current Medications: Meds: Current Medications Medications (Trade) Dose Ordered Sig/Veto Route PRN Reason Start Time Stop Time Status Last Admin Dose Admin Divalproex Sodium (Depakote Er) 500 mg DAILY PO 11/30/20 09:00 12/03/20 17:20 DC 12/03/20 08:13 Donepezil HCl (Aricept) 10 mg DAILY PO 11/30/20 09:00 12/08/20 08:41 Melatonin (Melatonin) 3 mg HS PO 11/30/20 21:00 12/08/20 20:04 Olanzapine (ZyPREXA) 5 mg AFTRNOON PO 11/30/20 13:00 12/08/20 12:10 Olanzapine (ZyPREXA) 5 mg HS PO 11/30/20 21:00 12/08/20 20:04 Olanzapine (ZyPREXA) 10 mg DAILY PO 11/30/20 09:00 12/03/20 19:22 DC 12/03/20 08:13 Sertraline HCl (Zoloft) 100 mg DAILY PO 11/30/20 09:00 12/08/20 08:40 Acetaminophen (Tylenol) 650 mg PRN Q6HRS PRN PO MILD PAIN / TEMP > 100.3'F 11/30/20 04:45 12/07/20 08:21 Aspirin (Aspirin Chewable) 81 mg DAILY PO 11/30/20 09:00 12/08/20 08:40 Polyethylene Glycol (miraLAX) 17 gm DAILY PO 11/30/20 09:00 12/08/20 08:40 Senna/Docusate Sodium (Senna Plus) 1 tab DAILY PO 11/30/20 09:00 12/08/20 08:41 Tamsulosin HCl (Flomax) 0.4 mg DAILY PO 11/30/20 09:00 12/08/20 08:41 Atorvastatin Calcium (Lipitor) 40 mg QHS PO 11/30/20 21:00 12/08/20 20:04 Olanzapine (ZyPREXA ZYDIS) 2.5 mg PRN Q2HR PRN PO PSYCHOSIS 11/30/20 04:45 Multi-Ingredient Ointment (Analgesic [place]) 1 denia PRN QID PRN TP MUSCLE PAIN 11/30/20 04:45 Al Hydroxide/Mg Hydroxide (Mylanta Plus Xs) 15 ml PRN AFTMEALHC PRN PO DYSPEPSIA 11/30/20 04:45 Magnesium Hydroxide (Milk Of Magnesia) 2,400 mg PRN QHS PRN PO CONSTIPATION 11/30/20 04:45 Oxycodone HCl (Roxicodone) 5 mg PRN Q3HRS PRN PO SEVERE OR PERSISTANT PAIN 11/30/20 13:30 Divalproex Sodium (Depakote Er) 750 mg HS PO 12/04/20 21:00 12/08/20 20:04 Olanzapine (ZyPREXA) 5 mg DAILY PO 12/04/20 09:00 12/08/20 14:20 DC 12/08/20 08:41 Olanzapine (ZyPREXA) 2.5 mg DAILY PO 12/09/20 09:00 I have reviewed the current psychotropics carefully including drug interactions. Risk benefit ratio favors no change other than as noted in my dictated progress note. Diagnosis: Problems: (1) Impulse control disorder, unspecified (2) Anxiety disorder, unspecified (3) Dementia, vascular, with depression (4) Dementia, vascular, with delusions (5) Dementia in Alzheimer's disease with depression (6) Dementia in Alzheimer's disease with delusions (7) Dementia of the Alzheimer's type with early onset with behavioral disturbance (8) Major neurocognitive disorder SONIA REILLY MD Dec 08, 2020 22:11
--- NOTE | 2020-12-08 22:57 | NUR ---
Pt sitting quietly in the day room when approached. Pt calm, confused, and disorganized. Pt wandering the unit at times this evening but has not been exit seeking. Pt cooperative with assessment and compliant with medications administered whole.
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
[2020-12-09 05:56] VITALS: BP 103/65
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
[2020-12-09] MEDS: POLYETHYLENE GLYCOL 3350 17 GM PACKET. PO SCH (08:18)
[2020-12-09] MEDS: DONEPEZIL HCL 10 MG TABLET PO SCH (08:19)
[2020-12-09] MEDS: ASPIRIN CHEWABLE 81 MG TABLET. PO SCH (08:19)
[2020-12-09] MEDS: SERTRALINE 100 MG TABLET. PO SCH (08:19)
[2020-12-09] MEDS: SENNOSIDES/DOCUSATE 8.6/50MG TABLET. PO SCH (08:19)
[2020-12-09] MEDS: TAMSULOSIN 0.4 MG CAP.ER.24H. PO SCH (08:19)
[2020-12-09] MEDS: OLANZapine 2.5 MG TABLET PO SCH (08:19)
--- NOTE | 2020-12-09 09:52 | PDOC ---
Exam Note: Obey Note: This note is a late entry for 12/07/2020 covers elements not covered in my initial note. Subjective: The patient was seen on telehealth rounds in the afternoon of 12/07/2020 with the nursing staff taking the telehealth camera to each patient, which was on a secure portal, discussed and reviewed the chart with Shahid EDGAR. The patient slept 6-1/4 hours previous night. The patient generally has been doing better, little more lucid at times. Repeat CT head showed no interval change from the prior one done at our facility. Review of Systems: Ambulation impaired with walker. No CV, , pulmonary, eye, ENT system symptoms on review. Reliability poor. Mental Status Exam: The patient is reasonably oriented to himself. Speech coherent. Abstraction fair. Computation impaired. Language function intact. Mood and affect improved. No suicidal or homicidal ideation. Laboratory Data: Reviewed. Impression: Major neurocognitive disorder, Alzheimer, vascular with delusion, depression, behavioral disturbance. Anxiety disorder unspecified. Impulse control disorder unspecified. Plan: No change from initial note and labs as noted above. Assessment: Vital Signs/I&O: Vital Signs Date Time Temp Pulse Resp B/P (MAP) Pulse Ox O2 Delivery O2 Flow Rate FiO2 12/09/20 05:56 97.9 69 18 103/65 (78) 100 12/07/20 15:51 Room Air I & O 12/08/20 12/08/20 12/09/20 15:00 23:00 07:00 Intake Total 960 ml 720 ml Balance 960 ml 720 ml Current Medications: Meds: Current Medications Medications (Trade) Dose Ordered Sig/Veto Route PRN Reason Start Time Stop Time Status Last Admin Dose Admin Divalproex Sodium (Depakote Er) 500 mg DAILY PO 11/30/20 09:00 12/03/20 17:20 DC 12/03/20 08:13 Donepezil HCl (Aricept) 10 mg DAILY PO 11/30/20 09:00 12/09/20 08:19 Melatonin (Melatonin) 3 mg HS PO 11/30/20 21:00 12/08/20 20:04 Olanzapine (ZyPREXA) 5 mg AFTRNOON PO 11/30/20 13:00 12/08/20 12:10 Olanzapine (ZyPREXA) 5 mg HS PO 11/30/20 21:00 12/08/20 20:04 Olanzapine (ZyPREXA) 10 mg DAILY PO 11/30/20 09:00 12/03/20 19:22 DC 12/03/20 08:13 Sertraline HCl (Zoloft) 100 mg DAILY PO 11/30/20 09:00 12/09/20 08:19 Acetaminophen (Tylenol) 650 mg PRN Q6HRS PRN PO MILD PAIN / TEMP > 100.3'F 11/30/20 04:45 12/07/20 08:21 Aspirin (Aspirin Chewable) 81 mg DAILY PO 11/30/20 09:00 12/09/20 08:19 Polyethylene Glycol (miraLAX) 17 gm DAILY PO 11/30/20 09:00 12/09/20 08:18 Senna/Docusate Sodium (Senna Plus) 1 tab DAILY PO 11/30/20 09:00 12/09/20 08:19 Tamsulosin HCl (Flomax) 0.4 mg DAILY PO 11/30/20 09:00 12/09/20 08:19 Atorvastatin Calcium (Lipitor) 40 mg QHS PO 11/30/20 21:00 12/08/20 20:04 Olanzapine (ZyPREXA ZYDIS) 2.5 mg PRN Q2HR PRN PO PSYCHOSIS 11/30/20 04:45 Multi-Ingredient Ointment (Analgesic [place]) 1 denia PRN QID PRN TP MUSCLE PAIN 11/30/20 04:45 Al Hydroxide/Mg Hydroxide (Mylanta Plus Xs) 15 ml PRN AFTMEALHC PRN PO DYSPEPSIA 11/30/20 04:45 Magnesium Hydroxide (Milk Of Magnesia) 2,400 mg PRN QHS PRN PO CONSTIPATION 11/30/20 04:45 Oxycodone HCl (Roxicodone) 5 mg PRN Q3HRS PRN PO SEVERE OR PERSISTANT PAIN 11/30/20 13:30 Divalproex Sodium (Depakote Er) 750 mg HS PO 12/04/20 21:00 12/08/20 20:04 Olanzapine (ZyPREXA) 5 mg DAILY PO 12/04/20 09:00 12/08/20 14:20 DC 12/08/20 08:41 Olanzapine (ZyPREXA) 2.5 mg DAILY PO 12/09/20 09:00 12/09/20 08:19 Current Medications Medications (Trade) Dose Ordered Sig/Veto Route PRN Reason Start Time Stop Time Status Last Admin Dose Admin Olanzapine (ZyPREXA) 2.5 mg DAILY PO 12/09/20 09:00 12/09/20 08:19 I have reviewed the current psychotropics carefully including drug interactions. Risk benefit ratio favors no change other than as noted in my dictated progress note. Diagnosis: Problems: (1) Impulse control disorder, unspecified (2) Anxiety disorder, unspecified (3) Dementia, vascular, with depression (4) Dementia, vascular, with delusions (5) Dementia in Alzheimer's disease with depression (6) Dementia in Alzheimer's disease with delusions (7) Dementia of the Alzheimer's type with early onset with behavioral disturban ce (8) Major neurocognitive disorder SONIA REILLY MD Dec 09, 2020 09:52
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
--- NOTE | 2020-12-09 10:14 | PDOC ---
Exam Note: Obey Note: This note is a late entry for 12/08/2020 covers elements not covered in my initial note. Subjective: The patient was reviewed on telehealth rounds in the afternoon of 12/08/2020 for a treatment team meeting with Enriqueta Child, Linnette Petersen (social contact worker), Rayne, activity therapy and Cade EDGAR, discussed and reviewed the chart. His daughter Hope also attended the meeting. The patient slept 9-1/4 hours previous night. The patient remains confused, has been ambulating on his own. During telehealth rounds I informed him that I had talked to his daughter today regarding his progress. He was able to tell me that his daughters name was Hope and the family is very closely involved in his care which is a blessing for him. Review of Systems: Ambulation impaired with walker. No CV, , pulmonary, eye, ENT system symptoms on review. Reliability poor. Mental Status Exam: The patient is reasonably oriented to himself. Speech coherent. Abstraction fair. Computation impaired. Language function intact. Mood and affect improved. No suicidal or homicidal ideation. Laboratory Data: Reviewed. Impression: Major neurocognitive disorder, Alzheimer, vascular with delusion, depression, behavioral disturbance. Anxiety disorder unspecified. Impulse control disorder unspecified. Plan: We will try and reduce the Zyprexa currently 5 mg t.i.d. and dropping the morning dosage down to 2.5 mg. Rest unchanged for now. Assessment: Vital Signs/I&O: Vital Signs Date Time Temp Pulse Resp B/P (MAP) Pulse Ox O2 Delivery O2 Flow Rate FiO2 12/09/20 05:56 97.9 69 18 103/65 (78) 100 12/07/20 15:51 Room Air I & O 12/08/20 12/08/20 12/09/20 15:00 23:00 07:00 Intake Total 960 ml 720 ml Balance 960 ml 720 ml Current Medications: Meds: Current Medications Medications (Trade) Dose Ordered Sig/Veto Route PRN Reason Start Time Stop Time Status Last Admin Dose Admin Divalproex Sodium (Depakote Er) 500 mg DAILY PO 11/30/20 09:00 12/03/20 17:20 DC 12/03/20 08:13 Donepezil HCl (Aricept) 10 mg DAILY PO 11/30/20 09:00 12/09/20 08:19 Melatonin (Melatonin) 3 mg HS PO 11/30/20 21:00 12/08/20 20:04 Olanzapine (ZyPREXA) 5 mg AFTRNOON PO 11/30/20 13:00 12/08/20 12:10 Olanzapine (ZyPREXA) 5 mg HS PO 11/30/20 21:00 12/08/20 20:04 Olanzapine (ZyPREXA) 10 mg DAILY PO 11/30/20 09:00 12/03/20 19:22 DC 12/03/20 08:13 Sertraline HCl (Zoloft) 100 mg DAILY PO 11/30/20 09:00 12/09/20 08:19 Acetaminophen (Tylenol) 650 mg PRN Q6HRS PRN PO MILD PAIN / TEMP > 100.3'F 11/30/20 04:45 12/07/20 08:21 Aspirin (Aspirin Chewable) 81 mg DAILY PO 11/30/20 09:00 12/09/20 08:19 Polyethylene Glycol (miraLAX) 17 gm DAILY PO 11/30/20 09:00 12/09/20 08:18 Senna/Docusate Sodium (Senna Plus) 1 tab DAILY PO 11/30/20 09:00 12/09/20 08:19 Tamsulosin HCl (Flomax) 0.4 mg DAILY PO 11/30/20 09:00 12/09/20 08:19 Atorvastatin Calcium (Lipitor) 40 mg QHS PO 11/30/20 21:00 12/08/20 20:04 Olanzapine (ZyPREXA ZYDIS) 2.5 mg PRN Q2HR PRN PO PSYCHOSIS 11/30/20 04:45 Multi-Ingredient Ointment (Analgesic [place]) 1 denia PRN QID PRN TP MUSCLE PAIN 11/30/20 04:45 Al Hydroxide/Mg Hydroxide (Mylanta Plus Xs) 15 ml PRN AFTMEALHC PRN PO DYSPEPSIA 11/30/20 04:45 Magnesium Hydroxide (Milk Of Magnesia) 2,400 mg PRN QHS PRN PO CONSTIPATION 11/30/20 04:45 Oxycodone HCl (Roxicodone) 5 mg PRN Q3HRS PRN PO SEVERE OR PERSISTANT PAIN 11/30/20 13:30 Divalproex Sodium (Depakote Er) 750 mg HS PO 12/04/20 21:00 12/08/20 20:04 Olanzapine (ZyPREXA) 5 mg DAILY PO 12/04/20 09:00 12/08/20 14:20 DC 12/08/20 08:41 Olanzapine (ZyPREXA) 2.5 mg DAILY PO 12/09/20 09:00 12/09/20 08:19 Current Medications Medications (Trade) Dose Ordered Sig/Veto Route PRN Reason Start Time Stop Time Status Last Admin Dose Admin Olanzapine (ZyPREXA) 2.5 mg DAILY PO 12/09/20 09:00 12/09/20 08:19 I have reviewed the current psychotropics carefully including drug interactions. Risk benefit ratio favors no change other than as noted in my dictated progress note. Diagnosis: Problems: (1) Impulse control disorder, unspecified (2) Anxiety disorder, unspecified (3) Dementia, vascular, with depression (4) Dementia, vascular, with delusions (5) Dementia in Alzheimer's disease with depression (6) Dementia in Alzheimer's disease with delusions (7) Dementia of the Alzheimer's type with early onset with behavioral disturbance (8) Major neurocognitive disorder SONIA REILLY MD Dec 09, 2020 10:14
[2020-12-09] MEDS: OLANZapine 5 MG TABLET PO SCH ×2 (13:06→20:07)
--- NOTE | 2020-12-09 14:47 | NUR ---
NURSING NOTE Pt is alert to self. Affect if flat, but is calm et cooperative. No aggressive behaviors noted this morning since episode with other patient. Moved to new room, able to find room independently. Ambulates ad madeleine. Denies pain in any location. Persistent wandering behaviors, not exit seeking. Compliant with medications without issue, takes whole. Will continue to observe for behavior changes. l
[2020-12-09 16:09] VITALS: BP 91/60
[2020-12-09] MEDS: ATORVASTATIN CALCIUM 20 MG TABLET PO SCH (20:07)
[2020-12-09] MEDS: MELATONIN 3 MG TABLET PO SCH (20:07)
[2020-12-09] MEDS: DIVALPROEX 125 MG CAP.SPRINK PO SCH (20:07)
--- NOTE | 2020-12-09 22:13 | PDOC ---
Exam Note: Obey Note: Please also refer to the separate dictated note~for this date of service dictated separately.~Patient seen individually. Discussed the patient with Nursing staff reviewed the chart.~Reviewed interim history and current functioning. Reviewed vital signs,~Labs/ Radiology~and current medications noted below. Continue current treatment with the changes noted in the dictated addendum note Assessment: Vital Signs/I&O: Vital Signs Date Time Temp Pulse Resp B/P (MAP) Pulse Ox O2 Delivery O2 Flow Rate FiO2 12/09/20 16:09 97.6 91 18 91/60 (70) 96 12/07/20 15:51 Room Air I & O 12/08/20 12/08/20 12/09/20 14:59 22:59 06:59 Intake Total 960 ml 720 ml Balance 960 ml 720 ml Current Medications: Meds: Current Medications Medications (Trade) Dose Ordered Sig/Veto Route PRN Reason Start Time Stop Time Status Last Admin Dose Admin Divalproex Sodium (Depakote Er) 500 mg DAILY PO 11/30/20 09:00 12/03/20 17:20 DC 12/03/20 08:13 Donepezil HCl (Aricept) 10 mg DAILY PO 11/30/20 09:00 12/09/20 08:19 Melatonin (Melatonin) 3 mg HS PO 11/30/20 21:00 12/09/20 20:07 Olanzapine (ZyPREXA) 5 mg AFTRNOON PO 11/30/20 13:00 12/09/20 13:06 Olanzapine (ZyPREXA) 5 mg HS PO 11/30/20 21:00 12/09/20 20:07 Olanzapine (ZyPREXA) 10 mg DAILY PO 11/30/20 09:00 12/03/20 19:22 DC 12/03/20 08:13 Sertraline HCl (Zoloft) 100 mg DAILY PO 11/30/20 09:00 12/09/20 08:19 Acetaminophen (Tylenol) 650 mg PRN Q6HRS PRN PO MILD PAIN / TEMP > 100.3'F 11/30/20 04:45 12/07/20 08:21 Aspirin (Aspirin Chewable) 81 mg DAILY PO 11/30/20 09:00 12/09/20 08:19 Polyethylene Glycol (miraLAX) 17 gm DAILY PO 11/30/20 09:00 12/09/20 08:18 Senna/Docusate Sodium (Senna Plus) 1 tab DAILY PO 11/30/20 09:00 12/09/20 08:19 Tamsulosin HCl (Flomax) 0.4 mg DAILY PO 11/30/20 09:00 12/09/20 08:19 Atorvastatin Calcium (Lipitor) 40 mg QHS PO 11/30/20 21:00 12/09/20 20:07 Olanzapine (ZyPREXA ZYDIS) 2.5 mg PRN Q2HR PRN PO PSYCHOSIS 11/30/20 04:45 Multi-Ingredient Ointment (Analgesic [place]) 1 denia PRN QID PRN TP MUSCLE PAIN 11/30/20 04:45 Al Hydroxide/Mg Hydroxide (Mylanta Plus Xs) 15 ml PRN AFTMEALHC PRN PO DYSPEPSIA 11/30/20 04:45 Magnesium Hydroxide (Milk Of Magnesia) 2,400 mg PRN QHS PRN PO CONSTIPATION 11/30/20 04:45 Oxycodone HCl (Roxicodone) 5 mg PRN Q3HRS PRN PO SEVERE OR PERSISTANT PAIN 11/30/20 13:30 Divalproex Sodium (Depakote Er) 750 mg HS PO 12/04/20 21:00 12/09/20 15:46 DC 12/08/20 20:04 Olanzapine (ZyPREXA) 5 mg DAILY PO 12/04/20 09:00 12/08/20 14:20 DC 12/08/20 08:41 Olanzapine (ZyPREXA) 2.5 mg DAILY PO 12/09/20 09:00 12/09/20 08:19 Divalproex Sodium (Depakote Sprinkles) 1,000 mg HS PO 12/09/20 21:00 12/09/20 20:07 Current Medications Medications (Trade) Dose Ordered Sig/Veto Route PRN Reason Start Time Stop Time Status Last Admin Dose Admin Olanzapine (ZyPREXA) 2.5 mg DAILY PO 12/09/20 09:00 12/09/20 08:19 Divalproex Sodium (Depakote Sprinkles) 1,000 mg HS PO 12/09/20 21:00 12/09/20 20:07 I have reviewed the current psychotropics carefully including drug interactions. Risk benefit ratio favors no change other than as noted in my dictated progress note. Diagnosis: Problems: (1) Impulse control disorder, unspecified (2) Anxiety disorder, unspecified (3) Dementia, vascular, with depression (4) Dementia, vascular, with delusions (5) Dementia in Alzheimer's disease with depression (6) Dementia in Alzheimer's disease with delusions (7) Dementia of the Alzheimer's type with early onset with behavioral disturbance (8) Major neurocognitive disorder SONIA REILLY MD Dec 09, 2020 22:13
--- NOTE | 2020-12-10 01:04 | NUR ---
Nursing Note Pt on patio during assessment. Pleasantly confused, takes po meds, cooperative. No agitation or combative behavior. Poor short term memory.
[2020-12-10 05:58] VITALS: BP 112/70
[2020-12-10] MEDS: SERTRALINE 100 MG TABLET. PO SCH (08:15)
[2020-12-10] MEDS: OLANZapine 2.5 MG TABLET PO SCH (08:15)
[2020-12-10] MEDS: ASPIRIN CHEWABLE 81 MG TABLET. PO SCH (08:15)
[2020-12-10] MEDS: DONEPEZIL HCL 10 MG TABLET PO SCH (08:15)
[2020-12-10] MEDS: SENNOSIDES/DOCUSATE 8.6/50MG TABLET. PO SCH (08:15)
[2020-12-10] MEDS: TAMSULOSIN 0.4 MG CAP.ER.24H. PO SCH (08:15)
[2020-12-10] MEDS: POLYETHYLENE GLYCOL 3350 17 GM PACKET. PO SCH (08:16)
[2020-12-10] MEDS: OLANZapine 5 MG TABLET PO SCH ×2 (12:40→19:52)
--- NOTE | 2020-12-10 15:19 | NUR ---
PATIENT IS COOPERATIVE WITH ASSESSMENT, COMPLIANT WITH MEDS TAKEN WHOLE, PATIENT IS PLEASANTLY CONFUSED, OBSERVED LATER WONDERING THE HALLWAY LOOKING FOR HIS ROOM. PATIENT SPENT MOST OF THE SHIFT WITHDRAWN TO HIS ROOM, RESTING IN A BED, NO AGITATION NOTED.
[2020-12-10 16:24] VITALS: BP 100/64
[2020-12-10] MEDS: MELATONIN 3 MG TABLET PO SCH (19:52)
[2020-12-10] MEDS: ATORVASTATIN CALCIUM 20 MG TABLET PO SCH (19:52)
[2020-12-10] MEDS: DIVALPROEX 125 MG CAP.SPRINK PO SCH (20:07)
--- NOTE | 2020-12-10 20:42 | NUR ---
NURSING NOTE Awake, alert, cooperative; takes PO medications without difficulty; ambulates between hallway and room, steady gait; lungs CTA bilat; denies pain, denies any c/o or concerns; ate snack in dayroom, briefly watches movie; voices no needs at present.
--- NOTE | 2020-12-10 22:51 | PDOC ---
Exam Note: Obey Note: Please also refer to the separate dictated note~for this date of service dictated separately.~Patient seen individually. Discussed the patient with Nursing staff reviewed the chart.~Reviewed interim history and current functioning. Reviewed vital signs,~Labs/ Radiology~and current medications noted below. Continue current treatment with the changes noted in the dictated addendum note Assessment: Vital Signs/I&O: Vital Signs Date Time Temp Pulse Resp B/P (MAP) Pulse Ox O2 Delivery O2 Flow Rate FiO2 12/10/20 16:24 97.5 63 16 100/64 (76) 97 Room Air I & O 12/09/20 12/09/20 12/10/20 15:00 23:00 07:00 Intake Total 450 ml 600 ml Balance 450 ml 600 ml Current Medications: Meds: Current Medications Medications (Trade) Dose Ordered Sig/Veto Route PRN Reason Start Time Stop Time Status Last Admin Dose Admin Divalproex Sodium (Depakote Er) 500 mg DAILY PO 11/30/20 09:00 12/03/20 17:20 DC 12/03/20 08:13 Donepezil HCl (Aricept) 10 mg DAILY PO 11/30/20 09:00 12/10/20 08:15 Melatonin (Melatonin) 3 mg HS PO 11/30/20 21:00 12/10/20 19:52 Olanzapine (ZyPREXA) 5 mg AFTRNOON PO 11/30/20 13:00 12/10/20 12:40 Olanzapine (ZyPREXA) 5 mg HS PO 11/30/20 21:00 12/10/20 19:52 Olanzapine (ZyPREXA) 10 mg DAILY PO 11/30/20 09:00 12/03/20 19:22 DC 12/03/20 08:13 Sertraline HCl (Zoloft) 100 mg DAILY PO 11/30/20 09:00 12/10/20 08:15 Acetaminophen (Tylenol) 650 mg PRN Q6HRS PRN PO MILD PAIN / TEMP > 100.3'F 11/30/20 04:45 12/07/20 08:21 Aspirin (Aspirin Chewable) 81 mg DAILY PO 11/30/20 09:00 12/10/20 08:15 Polyethylene Glycol (miraLAX) 17 gm DAILY PO 11/30/20 09:00 12/10/20 08:16 Senna/Docusate Sodium (Senna Plus) 1 tab DAILY PO 11/30/20 09:00 12/10/20 08:15 Tamsulosin HCl (Flomax) 0.4 mg DAILY PO 11/30/20 09:00 12/10/20 08:15 Atorvastatin Calcium (Lipitor) 40 mg QHS PO 11/30/20 21:00 12/10/20 19:52 Olanzapine (ZyPREXA ZYDIS) 2.5 mg PRN Q2HR PRN PO PSYCHOSIS 11/30/20 04:45 Multi-Ingredient Ointment (Analgesic [place]) 1 denia PRN QID PRN TP MUSCLE PAIN 11/30/20 04:45 Al Hydroxide/Mg Hydroxide (Mylanta Plus Xs) 15 ml PRN AFTMEALHC PRN PO DYSPEPSIA 11/30/20 04:45 Magnesium Hydroxide (Milk Of Magnesia) 2,400 mg PRN QHS PRN PO CONSTIPATION 11/30/20 04:45 Oxycodone HCl (Roxicodone) 5 mg PRN Q3HRS PRN PO SEVERE OR PERSISTANT PAIN 11/30/20 13:30 Divalproex Sodium (Depakote Er) 750 mg HS PO 12/04/20 21:00 12/09/20 15:46 DC 12/08/20 20:04 Olanzapine (ZyPREXA) 5 mg DAILY PO 12/04/20 09:00 12/08/20 14:20 DC 12/08/20 08:41 Olanzapine (ZyPREXA) 2.5 mg DAILY PO 12/09/20 09:00 12/10/20 08:15 Divalproex Sodium (Depakote Sprinkles) 1,000 mg HS PO 12/09/20 21:00 12/10/20 20:07 I have reviewed the current psychotropics carefully including drug interactions. Risk benefit ratio favors no change other than as noted in my dictated progress note. Diagnosis: Problems: (1) Impulse control disorder, unspecified (2) Anxiety disorder, unspecified (3) Dementia, vascular, with depression (4) Dementia, vascular, with delusions (5) Dementia in Alzheimer's disease with depression (6) Dementia in Alzheimer's disease with delusions (7) Dementia of the Alzheimer's type with early onset with behavioral disturbance (8) Major neurocognitive disorder SONIA REILLY MD Dec 10, 2020 22:51
[2020-12-11 06:03] VITALS: BP 117/70
[2020-12-11 07:02] LABS: ALBUMIN 3.3 g/dL (3.4-5.0); ALBUMIN/GLOBULIN RATIO 1.1 (1.0-1.7); ALK PHOS 118 U/L (46-116); ALT (SGPT) 23 U/L (16-63); ANION GAP 9 (6-14); AST (SGOT) 17 U/L (15-37); BLOOD UREA NITROGEN 23 mg/dL (8-26); BUN/CREATININE RATIO 21 (6-20); CALCIUM 8.9 mg/dL (8.5-10.1); CARBON DIOXIDE 28 mmol/L (21-32); CHLORIDE 109 mmol/L (98-107); CREATININE 1.1 mg/dL (0.7-1.3); GFR 64.2; GLUCOSE 81 mg/dL (70-99); POTASSIUM 3.9 mmol/L (3.5-5.1); SODIUM 146 mmol/L (136-145); TOTAL BILIRUBIN 0.4 mg/dL (0.2-1.0); TOTAL PROTEIN 6.3 g/dL (6.4-8.2)
[2020-12-11 07:03] LABS: BASO % 1 % (0-3); EOS # 0.1 x10^3/uL (0.0-0.7); EOS % 2 % (0-3); HEMATOCRIT 36.4 % (39.0-53.0); LYMPH # 1.2 x10^3/uL (1.0-4.8); LYMPH % 26 % (24-48); MEAN CORPUSCULAR HEMOGLOBIN 29 pg (25-35); MEAN CORPUSCULAR HGB CONC 33 g/dL (31-37); MEAN CORPUSCULAR VOLUME 87 fL (79-100); MONO # 0.4 x10^3/uL (0.0-1.1); MONO % 9 % (0-9); NEUT # 2.9 x10^3uL (1.8-7.7); NEUT % 62 % (31-73); PLATELET COUNT 168 x10^3/uL (140-400); RED BLOOD COUNT 4.21 x10^6/uL (4.30-5.70); WHITE BLOOD COUNT 4.6 x10^3/uL (4.0-11.0)
[2020-12-11 07:26] LABS: VAL ACID 80 mcg/mL (50-100)
[2020-12-11] MEDS: OLANZapine 2.5 MG TABLET PO SCH (08:19)
[2020-12-11] MEDS: DONEPEZIL HCL 10 MG TABLET PO SCH (08:19)
[2020-12-11] MEDS: ASPIRIN CHEWABLE 81 MG TABLET. PO SCH (08:19)
[2020-12-11] MEDS: TAMSULOSIN 0.4 MG CAP.ER.24H. PO SCH (08:19)
[2020-12-11] MEDS: SENNOSIDES/DOCUSATE 8.6/50MG TABLET. PO SCH (08:19)
[2020-12-11] MEDS: SERTRALINE 100 MG TABLET. PO SCH (08:19)
[2020-12-11] MEDS: POLYETHYLENE GLYCOL 3350 17 GM PACKET. PO SCH (08:20)
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
[2020-12-11] MEDS: OLANZapine 5 MG TABLET PO SCH ×2 (12:32→21:37)
--- NOTE | 2020-12-11 16:36 | NUR ---
PATIENT HAD A PLEASANT DAY, CALM, COOPERATIVE, COMPLIANT WITH MEDICATIONS TAKEN WHOLE. PATIENT OBSERVED SITTING IN A DAY ROOM QUIETLY DURING THE GROUP SESSION, PATIENT RESTED IN A BED THIS AFTERNOON, NO AGITATED BEHAVIOR NOTED.
[2020-12-11 16:58] VITALS: BP 99/64
[2020-12-11] MEDS: DIVALPROEX 125 MG CAP.SPRINK PO SCH (21:36)
[2020-12-11] MEDS: MELATONIN 3 MG TABLET PO SCH (21:37)
[2020-12-11] MEDS: ATORVASTATIN CALCIUM 20 MG TABLET PO SCH (21:38)
--- NOTE | 2020-12-11 22:17 | PDOC ---
Exam Note: Obey Note: Please also refer to the separate dictated note~for this date of service dictated separately.~Patient seen individually. Discussed the patient with Nursing staff reviewed the chart.~Reviewed interim history and current functioning. Reviewed vital signs,~Labs/ Radiology~and current medications noted below. Continue current treatment with the changes noted in the dictated addendum note Assessment: Vital Signs/I&O: Vital Signs Date Time Temp Pulse Resp B/P (MAP) Pulse Ox O2 Delivery O2 Flow Rate FiO2 12/11/20 16:58 97.6 85 18 99/64 (76) 99 Room Air I & O 12/10/20 12/10/20 12/11/20 15:00 23:00 07:00 Intake Total 600 ml 600 ml Balance 600 ml 600 ml Labs: Laboratory Tests Test 12/11/20 06:30 White Blood Count 4.6 x10^3/uL (4.0-11.0) Red Blood Count 4.21 x10^6/uL (4.30-5.70) L Hemoglobin 12.0 g/dL (13.0-17.5) L Hematocrit 36.4 % (39.0-53.0) L Mean Corpuscular Volume 87 fL (79-100) Mean Corpuscular Hemoglobin 29 pg (25-35) Mean Corpuscular Hemoglobin Concent 33 g/dL (31-37) Red Cell Distribution Width 17.0 % (11.5-14.5) H Platelet Count 168 x10^3/uL (140-400) Neutrophils (%) (Auto) 62 % (31-73) Lymphocytes (%) (Auto) 26 % (24-48) Monocytes (%) (Auto) 9 % (0-9) Eosinophils (%) (Auto) 2 % (0-3) Basophils (%) (Auto) 1 % (0-3) Neutrophils # (Auto) 2.9 x10^3uL (1.8-7.7) Lymphocytes # (Auto) 1.2 x10^3/uL (1.0-4.8) Monocytes # (Auto) 0.4 x10^3/uL (0.0-1.1) Eosinophils # (Auto) 0.1 x10^3/uL (0.0-0.7) Basophils # (Auto) 0.0 x10^3/uL (0.0-0.2) Sodium Level 146 mmol/L (136-145) H Potassium Level 3.9 mmol/L (3.5-5.1) Chloride Level 109 mmol/L (98-107) H Carbon Dioxide Level 28 mmol/L (21-32) Anion Gap 9 (6-14) Blood Urea Nitrogen 23 mg/dL (8-26) Creatinine 1.1 mg/dL (0.7-1.3) Estimated GFR (Cockcroft-Gault) 64.2 BUN/Creatinine Ratio 21 (6-20) H Glucose Level 81 mg/dL (70-99) Calcium Level 8.9 mg/dL (8.5-10.1) Total Bilirubin 0.4 mg/dL (0.2-1.0) Aspartate Amino Transferase (AST) 17 U/L (15-37) Alanine Aminotransferase (ALT) 23 U/L (16-63) Alkaline Phosphatase 118 U/L (46-116) H Ammonia < 10 mcmol/L (11-34) L Total Protein 6.3 g/dL (6.4-8.2) L Albumin 3.3 g/dL (3.4-5.0) L Albumin/Globulin Ratio 1.1 (1.0-1.7) Valproic Acid Level 80 mcg/mL (50-100) Valproic Acid Last Dose Date 12/08/20 Valproic Acid Last Dose Time 2100 Current Medications: Meds: Laboratory Tests Test 12/11/20 06:30 White Blood Count 4.6 x10^3/uL Red Blood Count 4.21 x10^6/uL Hemoglobin 12.0 g/dL Hematocrit 36.4 % Mean Corpuscular Volume 87 fL Mean Corpuscular Hemoglobin 29 pg Mean Corpuscular Hemoglobin Concent 33 g/dL Red Cell Distribution Width 17.0 % Platelet Count 168 x10^3/uL Neutrophils (%) (Auto) 62 % Lymphocytes (%) (Auto) 26 % Monocytes (%) (Auto) 9 % Eosinophils (%) (Auto) 2 % Basophils (%) (Auto) 1 % Neutrophils # (Auto) 2.9 x10^3uL Lymphocytes # (Auto) 1.2 x10^3/uL Monocytes # (Auto) 0.4 x10^3/uL Eosinophils # (Auto) 0.1 x10^3/uL Basophils # (Auto) 0.0 x10^3/uL Sodium Level 146 mmol/L Potassium Level 3.9 mmol/L Chloride Level 109 mmol/L Carbon Dioxide Level 28 mmol/L Anion Gap 9 Blood Urea Nitrogen 23 mg/dL Creatinine 1.1 mg/dL Estimated GFR (Cockcroft-Gault) 64.2 BUN/Creatinine Ratio 21 Glucose Level 81 mg/dL Calcium Level 8.9 mg/dL Total Bilirubin 0.4 mg/dL Aspartate Amino Transf (AST/SGOT) 17 U/L Alanine Aminotransferase (ALT/SGPT) 23 U/L Alkaline Phosphatase 118 U/L Ammonia < 10 mcmol/L Total Protein 6.3 g/dL Albumin 3.3 g/dL Albumin/Globulin Ratio 1.1 Valproic Acid (Depakene) Level 80 mcg/mL Valproic Acid Last Dose Date 12/08/20 Valproic Acid Last Dose Time 2100 Current Medications Medications (Trade) Dose Ordered Sig/Veto Route PRN Reason Start Time Stop Time Status Last Admin Dose Admin Divalproex Sodium (Depakote Er) 500 mg DAILY PO 11/30/20 09:00 12/03/20 17:20 DC 12/03/20 08:13 Donepezil HCl (Aricept) 10 mg DAILY PO 11/30/20 09:00 12/11/20 08:19 Melatonin (Melatonin) 3 mg HS PO 11/30/20 21:00 12/11/20 21:37 Olanzapine (ZyPREXA) 5 mg AFTRNOON PO 11/30/20 13:00 12/11/20 12:32 Olanzapine (ZyPREXA) 5 mg HS PO 11/30/20 21:00 12/11/20 21:37 Olanzapine (ZyPREXA) 10 mg DAILY PO 11/30/20 09:00 12/03/20 19:22 DC 12/03/20 08:13 Sertraline HCl (Zoloft) 100 mg DAILY PO 11/30/20 09:00 12/11/20 08:19 Acetaminophen (Tylenol) 650 mg PRN Q6HRS PRN PO MILD PAIN / TEMP > 100.3'F 11/30/20 04:45 12/07/20 08:21 Aspirin (Aspirin Chewable) 81 mg DAILY PO 11/30/20 09:00 12/11/20 08:19 Polyethylene Glycol (miraLAX) 17 gm DAILY PO 11/30/20 09:00 12/11/20 08:20 Senna/Docusate Sodium (Senna Plus) 1 tab DAILY PO 11/30/20 09:00 12/11/20 08:19 Tamsulosin HCl (Flomax) 0.4 mg DAILY PO 11/30/20 09:00 12/11/20 08:19 Atorvastatin Calcium (Lipitor) 40 mg QHS PO 11/30/20 21:00 12/11/20 21:38 Olanzapine (ZyPREXA ZYDIS) 2.5 mg PRN Q2HR PRN PO PSYCHOSIS 11/30/20 04:45 Multi-Ingredient Ointment (Analgesic [place]) 1 denia PRN QID PRN TP MUSCLE PAIN 11/30/20 04:45 Al Hydroxide/Mg Hydroxide (Mylanta Plus Xs) 15 ml PRN AFTMEALHC PRN PO DYSPEPSIA 11/30/20 04:45 Magnesium Hydroxide (Milk Of Magnesia) 2,400 mg PRN QHS PRN PO CONSTIPATION 11/30/20 04:45 Oxycodone HCl (Roxicodone) 5 mg PRN Q3HRS PRN PO SEVERE OR PERSISTANT PAIN 11/30/20 13:30 Divalproex Sodium (Depakote Er) 750 mg HS PO 12/04/20 21:00 12/09/20 15:46 DC 12/08/20 20:04 Olanzapine (ZyPREXA) 5 mg DAILY PO 12/04/20 09:00 12/08/20 14:20 DC 12/08/20 08:41 Olanzapine (ZyPREXA) 2.5 mg DAILY PO 12/09/20 09:00 12/11/20 08:19 Divalproex Sodium (Depakote Sprinkles) 1,000 mg HS PO 12/09/20 21:00 12/11/20 21:36 I have reviewed the current psychotropics carefully including drug interactions. Risk benefit ratio favors no change other than as noted in my dictated progress note. Diagnosis: Problems: (1) Impulse control disorder, unspecified (2) Anxiety disorder, unspecified (3) Dementia, vascular, with depression (4) Dementia, vascular, with delusions (5) Dementia in Alzheimer's disease with depression (6) Dementia in Alzheimer's disease with delusions (7) Dementia of the Alzheimer's type with early onset with behavioral disturbance (8) Major neurocognitive disorder SONIA REILLY MD Dec 11, 2020 22:17
--- NOTE | 2020-12-12 01:33 | NUR ---
Nursing Note The patient was located in his room for his assessment and medication pass. The patient was compliant with his medication and took them whole. The patient was alert to name only during his assessment. The patient got up from bed after his assessment and wandered down to the day room and then back to his room. The patient is currently sleeping in his room.
[2020-12-12 05:49] VITALS: BP 123/79
[2020-12-12] MEDS: SERTRALINE 100 MG TABLET. PO SCH (08:27)
[2020-12-12] MEDS: POLYETHYLENE GLYCOL 3350 17 GM PACKET. PO SCH (08:27)
[2020-12-12] MEDS: OLANZapine 2.5 MG TABLET PO SCH (08:27)
[2020-12-12] MEDS: SENNOSIDES/DOCUSATE 8.6/50MG TABLET. PO SCH (08:27)
[2020-12-12] MEDS: DONEPEZIL HCL 10 MG TABLET PO SCH (08:27)
[2020-12-12] MEDS: ASPIRIN CHEWABLE 81 MG TABLET. PO SCH (08:27)
[2020-12-12] MEDS: TAMSULOSIN 0.4 MG CAP.ER.24H. PO SCH (08:27)
[2020-12-12] MEDS: OLANZapine 5 MG TABLET PO SCH ×2 (12:18→21:10)
[2020-12-12 16:09] VITALS: BP 102/63
--- NOTE | 2020-12-12 16:58 | NUR ---
PATIENT HAD A GOOD DAY, CALM AND COOPERATIVE UPON ASSESSMENT, COMPLIANT WITH MEDICATIONS, STAYED MOST OF THE DAY IN HIS ROOM, ENJOYED THE PHONE CALL FROM HIS DAUGHTER, NO AGITATION NOTED.
[2020-12-12] MEDS: ATORVASTATIN CALCIUM 20 MG TABLET PO SCH (21:09)
[2020-12-12] MEDS: MELATONIN 3 MG TABLET PO SCH (21:09)
[2020-12-12] MEDS: DIVALPROEX 125 MG CAP.SPRINK PO SCH (21:09)
--- NOTE | 2020-12-12 22:21 | PDOC ---
Exam Note: Obey Note: This note is a late entry for 12/10/2020 covers elements not covered in my initial note. Subjective: The patient was seen on telehealth rounds in the afternoon of 12/10/2020 as an option during the COVID-19 pandemic period with Annabel EDGAR, discussed and reviewed the chart. The patient slept 6-1/4 hours previous night. The patient is somewhat confused, compliant with medications. Review of Systems: Ambulation impaired with walker. No CV, , pulmonary, eye, ENT system symptoms on review. Mental Status Exam: The patient is reasonably oriented to himself. Insight and judgment, recent and remote memory, attention and concentration is poor consistent with his diagnoses. Laboratory Data: Reviewed. Impression: Major neurocognitive disorder, Alzheimer, vascular with delusion, depression, behavioral disturbance. Anxiety disorder unspecified. Impulse control disorder unspecified. Plan: Continue psychotropics unchanged. Assessment: Vital Signs/I&O: Vital Signs Date Time Temp Pulse Resp B/P (MAP) Pulse Ox O2 Delivery O2 Flow Rate FiO2 12/12/20 16:09 98.2 73 17 102/63 (76) 98 12/12/20 05:49 Room Air I & O 12/11/20 12/11/20 12/12/20 15:00 23:00 07:00 Intake Total 480 ml 240 ml 240 ml Balance 480 ml 240 ml 240 ml Current Medications: Meds: Current Medications Medications (Trade) Dose Ordered Sig/Veto Route PRN Reason Start Time Stop Time Status Last Admin Dose Admin Divalproex Sodium (Depakote Er) 500 mg DAILY PO 11/30/20 09:00 12/03/20 17:20 DC 12/03/20 08:13 Donepezil HCl (Aricept) 10 mg DAILY PO 11/30/20 09:00 12/12/20 08:27 Melatonin (Melatonin) 3 mg HS PO 11/30/20 21:00 12/12/20 21:09 Olanzapine (ZyPREXA) 5 mg AFTRNOON PO 11/30/20 13:00 12/12/20 12:18 Olanzapine (ZyPREXA) 5 mg HS PO 11/30/20 21:00 12/12/20 21:10 Olanzapine (ZyPREXA) 10 mg DAILY PO 11/30/20 09:00 12/03/20 19:22 DC 12/03/20 08:13 Sertraline HCl (Zoloft) 100 mg DAILY PO 11/30/20 09:00 12/12/20 08:27 Acetaminophen (Tylenol) 650 mg PRN Q6HRS PRN PO MILD PAIN / TEMP > 100.3'F 11/30/20 04:45 12/07/20 08:21 Aspirin (Aspirin Chewable) 81 mg DAILY PO 11/30/20 09:00 12/12/20 08:27 Polyethylene Glycol (miraLAX) 17 gm DAILY PO 11/30/20 09:00 12/12/20 08:27 Senna/Docusate Sodium (Senna Plus) 1 tab DAILY PO 11/30/20 09:00 12/12/20 08:27 Tamsulosin HCl (Flomax) 0.4 mg DAILY PO 11/30/20 09:00 12/12/20 08:27 Atorvastatin Calcium (Lipitor) 40 mg QHS PO 11/30/20 21:00 12/12/20 21:09 Olanzapine (ZyPREXA ZYDIS) 2.5 mg PRN Q2HR PRN PO PSYCHOSIS 11/30/20 04:45 Multi-Ingredient Ointment (Analgesic [place]) 1 denia PRN QID PRN TP MUSCLE PAIN 11/30/20 04:45 Al Hydroxide/Mg Hydroxide (Mylanta Plus Xs) 15 ml PRN AFTMEALHC PRN PO DYSPEPSIA 11/30/20 04:45 Magnesium Hydroxide (Milk Of Magnesia) 2,400 mg PRN QHS PRN PO CONSTIPATION 11/30/20 04:45 Oxycodone HCl (Roxicodone) 5 mg PRN Q3HRS PRN PO SEVERE OR PERSISTANT PAIN 11/30/20 13:30 Divalproex Sodium (Depakote Er) 750 mg HS PO 12/04/20 21:00 12/09/20 15:46 DC 12/08/20 20:04 Olanzapine (ZyPREXA) 5 mg DAILY PO 12/04/20 09:00 12/08/20 14:20 DC 12/08/20 08:41 Olanzapine (ZyPREXA) 2.5 mg DAILY PO 12/09/20 09:00 12/12/20 08:27 Divalproex Sodium (Depakote Sprinkles) 1,000 mg HS PO 12/09/20 21:00 12/12/20 21:09 I have reviewed the current psychotropics carefully including drug interactions. Risk benefit ratio favors no change other than as noted in my dictated progress note. Diagnosis: Problems: (1) Mental status alteration (2) Impulse control disorder, unspecified (3) Anxiety disorder, unspecified (4) Dementia, vascular, with depression (5) Dementia, vascular, with delusions (6) Dementia in Alzheimer's disease with depression (7) Dementia in Alzheimer's disease with delusions (8) Dementia of the Alzheimer's type with early onset with behavioral disturbance (9) Major neurocognitive disorder SONIA REILLY MD Dec 12, 2020 22:21
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
--- NOTE | 2020-12-12 22:57 | PDOC ---
Exam Note: Obey Note: Please also refer to the separate dictated note~for this date of service dictated separately.~Patient seen individually. Discussed the patient with Nursing staff reviewed the chart.~Reviewed interim history and current functioning. Reviewed vital signs,~Labs/ Radiology~and current medications noted below. Continue current treatment with the changes noted in the dictated addendum note Assessment: Vital Signs/I&O: Vital Signs Date Time Temp Pulse Resp B/P (MAP) Pulse Ox O2 Delivery O2 Flow Rate FiO2 12/12/20 16:09 98.2 73 17 102/63 (76) 98 12/12/20 05:49 Room Air I & O 12/11/20 12/11/20 12/12/20 14:59 22:59 06:59 Intake Total 480 ml 240 ml 240 ml Balance 480 ml 240 ml 240 ml Current Medications: I have reviewed the current psychotropics carefully including drug interactions. Risk benefit ratio favors no change other than as noted in my dictated progress note. Diagnosis: Problems: (1) Impulse control disorder, unspecified (2) Anxiety disorder, unspecified (3) Dementia, vascular, with depression (4) Dementia, vascular, with delusions (5) Dementia in Alzheimer's disease with depression (6) Dementia in Alzheimer's disease with delusions (7) Dementia of the Alzheimer's type with early onset with behavioral disturbance (8) Major neurocognitive disorder SONIA REILLY MD Dec 12, 2020 22:57
--- NOTE | 2020-12-13 04:59 | NUR ---
Nursing Note The patient was mostly withdrawn to self this shift. The patient was in his room for his assessment and medication pass. The patient took his medication whole. The patient was alert to self only. The patient was pleasant during interactions. The patient is currently sleeping in his room.
[2020-12-13 06:22] VITALS: BP 97/59
[2020-12-13] MEDS: POLYETHYLENE GLYCOL 3350 17 GM PACKET. PO SCH (08:11)
[2020-12-13] MEDS: DONEPEZIL HCL 10 MG TABLET PO SCH (08:12)
[2020-12-13] MEDS: ASPIRIN CHEWABLE 81 MG TABLET. PO SCH (08:12)
[2020-12-13] MEDS: OLANZapine 2.5 MG TABLET PO SCH (08:12)
[2020-12-13] MEDS: TAMSULOSIN 0.4 MG CAP.ER.24H. PO SCH (08:12)
[2020-12-13] MEDS: SENNOSIDES/DOCUSATE 8.6/50MG TABLET. PO SCH (08:12)
[2020-12-13] MEDS: SERTRALINE 100 MG TABLET. PO SCH (08:19)
[2020-12-13] MEDS: OLANZapine 5 MG TABLET PO SCH ×2 (12:45→21:39)
[2020-12-13 15:52] VITALS: BP 95/63
--- NOTE | 2020-12-13 18:06 | NUR ---
Pt up adl in halls. Out to day room and meals. Compliant with meds and cares. Has been door checking and ringing doorbell. Is easily redirectable.
[2020-12-13] MEDS: DIVALPROEX 125 MG CAP.SPRINK PO SCH (21:38)
[2020-12-13] MEDS: MELATONIN 3 MG TABLET PO SCH (21:39)
[2020-12-13] MEDS: ATORVASTATIN CALCIUM 20 MG TABLET PO SCH (21:39)
--- NOTE | 2020-12-13 22:37 | PDOC ---
Exam Note: Obey Note: Please also refer to the separate dictated note~for this date of service dictated separately.~Patient seen individually. Discussed the patient with Nursing staff reviewed the chart.~Reviewed interim history and current functioning. Reviewed vital signs,~Labs/ Radiology~and current medications noted below. Continue current treatment with the changes noted in the dictated addendum note Assessment: Vital Signs/I&O: Vital Signs Date Time Temp Pulse Resp B/P (MAP) Pulse Ox O2 Delivery O2 Flow Rate FiO2 12/13/20 15:52 97.8 88 20 95/63 (74) 98 12/13/20 06:22 Room Air I & O 12/12/20 12/12/20 12/13/20 14:59 22:59 06:59 Intake Total 720 ml 480 ml Balance 720 ml 480 ml Current Medications: I have reviewed the current psychotropics carefully including drug interactions. Risk benefit ratio favors no change other than as noted in my dictated progress note. Diagnosis: Problems: (1) Impulse control disorder, unspecified (2) Anxiety disorder, unspecified (3) Dementia, vascular, with depression (4) Dementia, vascular, with delusions (5) Dementia in Alzheimer's disease with depression (6) Dementia in Alzheimer's disease with delusions (7) Dementia of the Alzheimer's type with early onset with behavioral disturbance (8) Major neurocognitive disorder SONIA REILLY MD Dec 13, 2020 22:37
--- NOTE | 2020-12-14 02:42 | NUR ---
Nursing Note The patient was noted to be exit seeking this shift. The patient attempted to exit the unit several times this shift and per report attempted throughout the day. The patient was compliant with medication and took them whole. The patient was alert to name only during his assessment. The patient is currently sleeping in his room.
[2020-12-14 05:55] VITALS: BP 97/59
[2020-12-14] MEDS: DONEPEZIL HCL 10 MG TABLET PO SCH (09:01)
[2020-12-14] MEDS: SENNOSIDES/DOCUSATE 8.6/50MG TABLET. PO SCH (09:01)
[2020-12-14] MEDS: TAMSULOSIN 0.4 MG CAP.ER.24H. PO SCH (09:01)
[2020-12-14] MEDS: POLYETHYLENE GLYCOL 3350 17 GM PACKET. PO SCH (09:01)
[2020-12-14] MEDS: OLANZapine 2.5 MG TABLET PO SCH (09:01)
[2020-12-14] MEDS: ASPIRIN CHEWABLE 81 MG TABLET. PO SCH (09:01)
[2020-12-14] MEDS: SERTRALINE 100 MG TABLET. PO SCH (09:02)
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
--- NOTE | 2020-12-14 09:58 | PDOC ---
Exam Note: Obey Note: This note is a late entry for 12/13/2020 covers elements not covered in my initial note. Subjective: The patient was seen on telehealth rounds in the afternoon of 12/13/2020 as an option during the COVID-19 pandemic period with Lili EDGAR, discussed and reviewed the chart. The patient slept 6 hours previous night. He has been checking doors. He is compliant with medications but not aggressive. Review of Systems: Ambulation impaired with walker. No CV, , pulmonary, eye, ENT system symptoms on review. Mental Status Exam: The patient is reasonably oriented to himself. Insight and judgment, recent and remote memory, attention and concentration is poor consistent with his diagnoses. Laboratory Data: Reviewed. Impression: Major neurocognitive disorder, Alzheimer, vascular with delusion, depression, behavioral disturbance. Anxiety disorder unspecified. Impulse control disorder unspecified. Plan: Continue psychotropics unchanged. Assessment: Vital Signs/I&O: Vital Signs Date Time Temp Pulse Resp B/P (MAP) Pulse Ox O2 Delivery O2 Flow Rate FiO2 12/14/20 05:55 97.5 63 18 97/59 (72) 97 12/13/20 06:22 Room Air I & O 12/13/20 12/13/20 12/14/20 15:00 23:00 07:00 Intake Total 600 ml 600 ml Balance 600 ml 600 ml Current Medications: Meds: Current Medications Medications (Trade) Dose Ordered Sig/Veto Route PRN Reason Start Time Stop Time Status Last Admin Dose Admin Divalproex Sodium (Depakote Er) 500 mg DAILY PO 11/30/20 09:00 12/03/20 17:20 DC 12/03/20 08:13 Donepezil HCl (Aricept) 10 mg DAILY PO 11/30/20 09:00 12/14/20 09:01 Melatonin (Melatonin) 3 mg HS PO 11/30/20 21:00 12/13/20 21:39 Olanzapine (ZyPREXA) 5 mg AFTRNOON PO 11/30/20 13:00 12/13/20 12:45 Olanzapine (ZyPREXA) 5 mg HS PO 11/30/20 21:00 12/13/20 21:39 Olanzapine (ZyPREXA) 10 mg DAILY PO 11/30/20 09:00 12/03/20 19:22 DC 12/03/20 08:13 Sertraline HCl (Zoloft) 100 mg DAILY PO 11/30/20 09:00 12/14/20 09:02 Acetaminophen (Tylenol) 650 mg PRN Q6HRS PRN PO MILD PAIN / TEMP > 100.3'F 11/30/20 04:45 12/07/20 08:21 Aspirin (Aspirin Chewable) 81 mg DAILY PO 11/30/20 09:00 12/14/20 09:01 Polyethylene Glycol (miraLAX) 17 gm DAILY PO 11/30/20 09:00 12/14/20 09:01 Senna/Docusate Sodium (Senna Plus) 1 tab DAILY PO 11/30/20 09:00 12/14/20 09:01 Tamsulosin HCl (Flomax) 0.4 mg DAILY PO 11/30/20 09:00 12/14/20 09:01 Atorvastatin Calcium (Lipitor) 40 mg QHS PO 11/30/20 21:00 12/13/20 21:39 Olanzapine (ZyPREXA ZYDIS) 2.5 mg PRN Q2HR PRN PO PSYCHOSIS 11/30/20 04:45 Multi-Ingredient Ointment (Analgesic [place]) 1 denia PRN QID PRN TP MUSCLE PAIN 11/30/20 04:45 Al Hydroxide/Mg Hydroxide (Mylanta Plus Xs) 15 ml PRN AFTMEALHC PRN PO DYSPEPSIA 11/30/20 04:45 Magnesium Hydroxide (Milk Of Magnesia) 2,400 mg PRN QHS PRN PO CONSTIPATION 11/30/20 04:45 Oxycodone HCl (Roxicodone) 5 mg PRN Q3HRS PRN PO SEVERE OR PERSISTANT PAIN 11/30/20 13:30 Divalproex Sodium (Depakote Er) 750 mg HS PO 12/04/20 21:00 12/09/20 15:46 DC 12/08/20 20:04 Olanzapine (ZyPREXA) 5 mg DAILY PO 12/04/20 09:00 12/08/20 14:20 DC 12/08/20 08:41 Olanzapine (ZyPREXA) 2.5 mg DAILY PO 12/09/20 09:00 12/14/20 09:01 Divalproex Sodium (Depakote Sprinkles) 1,000 mg HS PO 12/09/20 21:00 12/13/20 21:38 I have reviewed the current psychotropics carefully including drug interactions. Risk benefit ratio favors no change other than as noted in my dictated progress note. Diagnosis: Problems: (1) Impulse control disorder, unspecified (2) Anxiety disorder, unspecified (3) Dementia, vascular, with depression (4) Dementia, vascular, with delusions (5) Dementia in Alzheimer's disease with depression (6) Dementia in Alzheimer's disease with delusions (7) Dementia of the Alzheimer's type with early onset with behavioral disturbance (8) Major neurocognitive disorder SONIA REILLY MD Dec 14, 2020 09:58
[2020-12-14] MEDS: OLANZapine 5 MG TABLET PO SCH ×2 (13:51→20:18)
[2020-12-14 16:42] VITALS: BP 98/64
--- NOTE | 2020-12-14 18:30 | NUR ---
Patient has been calm, compliant, and pleasantly confused; he has spent the majority of this shift withdrawn to his room. Wlll continue to monitor and report to oncoming shift.
[2020-12-14] MEDS: MELATONIN 3 MG TABLET PO SCH (20:18)
[2020-12-14] MEDS: DIVALPROEX 125 MG CAP.SPRINK PO SCH (20:18)
[2020-12-14] MEDS: ATORVASTATIN CALCIUM 20 MG TABLET PO SCH (20:18)
--- NOTE | 2020-12-14 22:07 | PDOC ---
Exam Note: Obey Note: Please also refer to the separate dictated note~for this date of service dictated separately.~Patient seen individually. Discussed the patient with Nursing staff reviewed the chart.~Reviewed interim history and current functioning. Reviewed vital signs,~Labs/ Radiology~and current medications noted below. Continue current treatment with the changes noted in the dictated addendum note Assessment: Vital Signs/I&O: Vital Signs Date Time Temp Pulse Resp B/P (MAP) Pulse Ox O2 Delivery O2 Flow Rate FiO2 12/14/20 16:42 96.7 59 16 98/64 (75) 97 12/13/20 06:22 Room Air I & O 12/13/20 12/13/20 12/14/20 14:59 22:59 06:59 Intake Total 600 ml 600 ml Balance 600 ml 600 ml Current Medications: I have reviewed the current psychotropics carefully including drug interactions. Risk benefit ratio favors no change other than as noted in my dictated progress note. Diagnosis: Problems: (1) Impulse control disorder, unspecified (2) Anxiety disorder, unspecified (3) Dementia, vascular, with depression (4) Dementia, vascular, with delusions (5) Dementia in Alzheimer's disease with depression (6) Dementia in Alzheimer's disease with delusions (7) Dementia of the Alzheimer's type with early onset with behavioral disturbance (8) Major neurocognitive disorder SONIA REILLY MD Dec 14, 2020 22:07
--- NOTE | 2020-12-14 23:58 | NUR ---
Pt sitting quietly in the day room when approached. Pt calm, pleasantly confused, and disorganized. Pt cooperative with assessment and compliant with medications administered whole. No agitation or aggression noted thus far this shift.
[2020-12-15 05:36] VITALS: BP 115/60
[2020-12-15] MEDS: OLANZapine 2.5 MG TABLET PO SCH (08:43)
[2020-12-15] MEDS: SERTRALINE 100 MG TABLET. PO SCH (08:43)
[2020-12-15] MEDS: SENNOSIDES/DOCUSATE 8.6/50MG TABLET. PO SCH (08:43)
[2020-12-15] MEDS: ASPIRIN CHEWABLE 81 MG TABLET. PO SCH (08:43)
[2020-12-15] MEDS: TAMSULOSIN 0.4 MG CAP.ER.24H. PO SCH (08:43)
[2020-12-15] MEDS: DONEPEZIL HCL 10 MG TABLET PO SCH (08:43)
[2020-12-15] MEDS: POLYETHYLENE GLYCOL 3350 17 GM PACKET. PO SCH (09:00)
--- NOTE | 2020-12-15 09:10 | PDOC ---
Exam Note: Obey Note: This note is a late entry for 12/14/2020 covers elements not covered in my initial note. Subjective: The patient was seen individually in the evening of 12/14/2020 with Malvin EDGAR, discussed and reviewed the chart. The patient slept 6-3/4 hours previous night. Previous evening the patient was exit seeking, pushing the doors and the intercom. Today he is somewhat withdrawn. His called and talked to him. He is wandering in the unit as I met with him. Review of Systems: Ambulation impaired with walker. No CV, , pulmonary, eye, ENT system symptoms on review. Mental Status Exam: The patient is reasonably oriented to himself. Insight and judgment, recent and remote memory, attention and concentration is poor consistent with his diagnoses. Laboratory Data: Reviewed. Impression: Major neurocognitive disorder, Alzheimer, vascular with delusion, depression, behavioral disturbance. Anxiety disorder unspecified. Impulse control disorder unspecified. Plan: Continue psychotropics unchanged. Assessment: Vital Signs/I&O: Vital Signs Date Time Temp Pulse Resp B/P (MAP) Pulse Ox O2 Delivery O2 Flow Rate FiO2 12/15/20 05:36 96.1 54 14 115/60 (78) 100 12/13/20 06:22 Room Air I & O 12/14/20 12/14/20 12/15/20 15:00 23:00 07:00 Intake Total 840 ml 720 ml Balance 840 ml 720 ml Current Medications: Meds: Current Medications Medications (Trade) Dose Ordered Sig/Veto Route PRN Reason Start Time Stop Time Status Last Admin Dose Admin Divalproex Sodium (Depakote Er) 500 mg DAILY PO 11/30/20 09:00 12/03/20 17:20 DC 12/03/20 08:13 Donepezil HCl (Aricept) 10 mg DAILY PO 11/30/20 09:00 12/15/20 08:43 Melatonin (Melatonin) 3 mg HS PO 11/30/20 21:00 12/14/20 20:18 Olanzapine (ZyPREXA) 5 mg AFTRNOON PO 11/30/20 13:00 12/14/20 13:51 Olanzapine (ZyPREXA) 5 mg HS PO 11/30/20 21:00 12/14/20 20:18 Olanzapine (ZyPREXA) 10 mg DAILY PO 11/30/20 09:00 12/03/20 19:22 DC 12/03/20 08:13 Sertraline HCl (Zoloft) 100 mg DAILY PO 11/30/20 09:00 12/15/20 08:43 Acetaminophen (Tylenol) 650 mg PRN Q6HRS PRN PO MILD PAIN / TEMP > 100.3'F 11/30/20 04:45 12/07/20 08:21 Aspirin (Aspirin Chewable) 81 mg DAILY PO 11/30/20 09:00 12/15/20 08:43 Polyethylene Glycol (miraLAX) 17 gm DAILY PO 11/30/20 09:00 12/14/20 09:01 Senna/Docusate Sodium (Senna Plus) 1 tab DAILY PO 11/30/20 09:00 12/15/20 08:43 Tamsulosin HCl (Flomax) 0.4 mg DAILY PO 11/30/20 09:00 12/15/20 08:43 Atorvastatin Calcium (Lipitor) 40 mg QHS PO 11/30/20 21:00 12/14/20 20:18 Olanzapine (ZyPREXA ZYDIS) 2.5 mg PRN Q2HR PRN PO PSYCHOSIS 11/30/20 04:45 Multi-Ingredient Ointment (Analgesic [place]) 1 denia PRN QID PRN TP MUSCLE PAIN 11/30/20 04:45 Al Hydroxide/Mg Hydroxide (Mylanta Plus Xs) 15 ml PRN AFTMEALHC PRN PO DYSPEPSIA 11/30/20 04:45 Magnesium Hydroxide (Milk Of Magnesia) 2,400 mg PRN QHS PRN PO CONSTIPATION 11/30/20 04:45 Oxycodone HCl (Roxicodone) 5 mg PRN Q3HRS PRN PO SEVERE OR PERSISTANT PAIN 11/30/20 13:30 Divalproex Sodium (Depakote Er) 750 mg HS PO 12/04/20 21:00 12/09/20 15:46 DC 12/08/20 20:04 Olanzapine (ZyPREXA) 5 mg DAILY PO 12/04/20 09:00 12/08/20 14:20 DC 12/08/20 08:41 Olanzapine (ZyPREXA) 2.5 mg DAILY PO 12/09/20 09:00 12/15/20 08:43 Divalproex Sodium (Depakote Sprinkles) 1,000 mg HS PO 12/09/20 21:00 12/14/20 20:18 I have reviewed the current psychotropics carefully including drug interactions. Risk benefit ratio favors no change other than as noted in my dictated progress note. Diagnosis: Problems: (1) Impulse control disorder, unspecified (2) Anxiety disorder, unspecified (3) Dementia, vascular, with depression (4) Dementia, vascular, with delusions (5) Dementia in Alzheimer's disease with depression (6) Dementia in Alzheimer's disease with delusions (7) Dementia of the Alzheimer's type with early onset with behavioral disturbance (8) Major neurocognitive disorder SONIA REILLY MD Dec 15, 2020 09:10
[2020-12-15] MEDS: OLANZapine 5 MG TABLET PO SCH ×2 (13:39→20:41)
[2020-12-15 16:21] VITALS: BP 120/77
--- NOTE | 2020-12-15 18:39 | NUR ---
Patient has been calm, compliant, and pleasantly confused throughout this shift. He has mainly stayed withdrawn to his room, occasionally wandering in the xie. Will continue to monitor and report to oncoming shift.
[2020-12-15] MEDS: MELATONIN 3 MG TABLET PO SCH (20:41)
[2020-12-15] MEDS: ATORVASTATIN CALCIUM 20 MG TABLET PO SCH (20:41)
[2020-12-15] MEDS: DIVALPROEX 125 MG CAP.SPRINK PO SCH (20:41)
--- NOTE | 2020-12-15 22:08 | PDOC ---
Exam Note: Obey Note: Please also refer to the separate dictated note~for this date of service dictated separately.~Patient seen individually. Discussed the patient with Nursing staff reviewed the chart.~Reviewed interim history and current functioning. Reviewed vital signs,~Labs/ Radiology~and current medications noted below. Continue current treatment with the changes noted in the dictated addendum note Assessment: Vital Signs/I&O: Vital Signs Date Time Temp Pulse Resp B/P (MAP) Pulse Ox O2 Delivery O2 Flow Rate FiO2 12/15/20 16:21 98.7 94 20 120/77 (91) 95 12/13/20 06:22 Room Air I & O 12/14/20 12/14/20 12/15/20 15:00 23:00 07:00 Intake Total 840 ml 720 ml Balance 840 ml 720 ml Current Medications: Meds: Current Medications Medications (Trade) Dose Ordered Sig/Veto Route PRN Reason Start Time Stop Time Status Last Admin Dose Admin Divalproex Sodium (Depakote Er) 500 mg DAILY PO 11/30/20 09:00 12/03/20 17:20 DC 12/03/20 08:13 Donepezil HCl (Aricept) 10 mg DAILY PO 11/30/20 09:00 12/15/20 08:43 Melatonin (Melatonin) 3 mg HS PO 11/30/20 21:00 12/15/20 20:41 Olanzapine (ZyPREXA) 5 mg AFTRNOON PO 11/30/20 13:00 12/15/20 13:39 Olanzapine (ZyPREXA) 5 mg HS PO 11/30/20 21:00 12/15/20 20:41 Olanzapine (ZyPREXA) 10 mg DAILY PO 11/30/20 09:00 12/03/20 19:22 DC 12/03/20 08:13 Sertraline HCl (Zoloft) 100 mg DAILY PO 11/30/20 09:00 12/15/20 08:43 Acetaminophen (Tylenol) 650 mg PRN Q6HRS PRN PO MILD PAIN / TEMP > 100.3'F 11/30/20 04:45 12/07/20 08:21 Aspirin (Aspirin Chewable) 81 mg DAILY PO 11/30/20 09:00 12/15/20 08:43 Polyethylene Glycol (miraLAX) 17 gm DAILY PO 11/30/20 09:00 12/15/20 09:00 Senna/Docusate Sodium (Senna Plus) 1 tab DAILY PO 11/30/20 09:00 12/15/20 08:43 Tamsulosin HCl (Flomax) 0.4 mg DAILY PO 11/30/20 09:00 12/15/20 08:43 Atorvastatin Calcium (Lipitor) 40 mg QHS PO 11/30/20 21:00 12/15/20 20:41 Olanzapine (ZyPREXA ZYDIS) 2.5 mg PRN Q2HR PRN PO PSYCHOSIS 11/30/20 04:45 Multi-Ingredient Ointment (Analgesic [place]) 1 denia PRN QID PRN TP MUSCLE PAIN 11/30/20 04:45 Al Hydroxide/Mg Hydroxide (Mylanta Plus Xs) 15 ml PRN AFTMEALHC PRN PO DYSPEPSIA 11/30/20 04:45 Magnesium Hydroxide (Milk Of Magnesia) 2,400 mg PRN QHS PRN PO CONSTIPATION 11/30/20 04:45 Oxycodone HCl (Roxicodone) 5 mg PRN Q3HRS PRN PO SEVERE OR PERSISTANT PAIN 11/30/20 13:30 Divalproex Sodium (Depakote Er) 750 mg HS PO 12/04/20 21:00 12/09/20 15:46 DC 12/08/20 20:04 Olanzapine (ZyPREXA) 5 mg DAILY PO 12/04/20 09:00 12/08/20 14:20 DC 12/08/20 08:41 Olanzapine (ZyPREXA) 2.5 mg DAILY PO 12/09/20 09:00 12/15/20 08:43 Divalproex Sodium (Depakote Sprinkles) 1,000 mg HS PO 12/09/20 21:00 12/15/20 21:24 DC 12/15/20 20:41 Divalproex Sodium (Depakote Er) 1,000 mg QHS PO 12/16/20 21:00 I have reviewed the current psychotropics carefully including drug interactions. Risk benefit ratio favors no change other than as noted in my dictated progress note. Diagnosis: Problems: (1) Impulse control disorder, unspecified (2) Anxiety disorder, unspecified (3) Dementia, vascular, with depression (4) Dementia, vascular, with delusions (5) Dementia in Alzheimer's disease with depression (6) Dementia in Alzheimer's disease with delusions (7) Dementia of the Alzheimer's type with early onset with behavioral disturbance (8) Major neurocognitive disorder SONIA REILLY MD Dec 15, 2020 22:08
[2020-12-16 05:56] VITALS: BP 112/60
--- NOTE | 2020-12-16 06:50 | PDOC ---
Exam Note: Obey Note: This note is a late entry for 12/15/2020 covers elements not covered in my initial note. Subjective: The patient was seen individually in the evening of 12/15/2020 with Malvin EDGAR, discussed and reviewed the chart. The patient slept 6-3/4 hours previous night. He is confused, fairly calm. Review of Systems: Ambulation impaired with walker. No CV, , pulmonary, eye, ENT system symptoms on review. Mental Status Exam: The patient is reasonably oriented to himself. Insight and judgment, recent and remote memory, attention and concentration is poor consistent with his diagnoses. Laboratory Data: Reviewed. Impression: Major neurocognitive disorder, Alzheimer, vascular with delusion, depression, behavioral disturbance. Anxiety disorder unspecified. Impulse control disorder unspecified. Plan: Continue psychotropics unchanged. Assessment: Vital Signs/I&O: Vital Signs Date Time Temp Pulse Resp B/P (MAP) Pulse Ox O2 Delivery O2 Flow Rate FiO2 12/16/20 05:56 97.4 80 18 112/60 (77) 99 Room Air I & O 12/15/20 12/15/20 12/16/20 15:00 23:00 07:00 Intake Total 840 ml 360 ml Balance 840 ml 360 ml Current Medications: Meds: Current Medications Medications (Trade) Dose Ordered Sig/Veto Route PRN Reason Start Time Stop Time Status Last Admin Dose Admin Divalproex Sodium (Depakote Er) 500 mg DAILY PO 11/30/20 09:00 12/03/20 17:20 DC 12/03/20 08:13 Donepezil HCl (Aricept) 10 mg DAILY PO 11/30/20 09:00 12/15/20 08:43 Melatonin (Melatonin) 3 mg HS PO 11/30/20 21:00 12/15/20 20:41 Olanzapine (ZyPREXA) 5 mg AFTRNOON PO 11/30/20 13:00 12/15/20 13:39 Olanzapine (ZyPREXA) 5 mg HS PO 11/30/20 21:00 12/15/20 20:41 Olanzapine (ZyPREXA) 10 mg DAILY PO 11/30/20 09:00 12/03/20 19:22 DC 12/03/20 08:13 Sertraline HCl (Zoloft) 100 mg DAILY PO 11/30/20 09:00 12/15/20 08:43 Acetaminophen (Tylenol) 650 mg PRN Q6HRS PRN PO MILD PAIN / TEMP > 100.3'F 11/30/20 04:45 12/07/20 08:21 Aspirin (Aspirin Chewable) 81 mg DAILY PO 11/30/20 09:00 12/15/20 08:43 Polyethylene Glycol (miraLAX) 17 gm DAILY PO 11/30/20 09:00 12/15/20 09:00 Senna/Docusate Sodium (Senna Plus) 1 tab DAILY PO 11/30/20 09:00 12/15/20 08:43 Tamsulosin HCl (Flomax) 0.4 mg DAILY PO 11/30/20 09:00 12/15/20 08:43 Atorvastatin Calcium (Lipitor) 40 mg QHS PO 11/30/20 21:00 12/15/20 20:41 Olanzapine (ZyPREXA ZYDIS) 2.5 mg PRN Q2HR PRN PO PSYCHOSIS 11/30/20 04:45 Multi-Ingredient Ointment (Analgesic [place]) 1 denia PRN QID PRN TP MUSCLE PAIN 11/30/20 04:45 Al Hydroxide/Mg Hydroxide (Mylanta Plus Xs) 15 ml PRN AFTMEALHC PRN PO DYSPEPSIA 11/30/20 04:45 Magnesium Hydroxide (Milk Of Magnesia) 2,400 mg PRN QHS PRN PO CONSTIPATION 11/30/20 04:45 Oxycodone HCl (Roxicodone) 5 mg PRN Q3HRS PRN PO SEVERE OR PERSISTANT PAIN 11/30/20 13:30 Divalproex Sodium (Depakote Er) 750 mg HS PO 12/04/20 21:00 12/09/20 15:46 DC 12/08/20 20:04 Olanzapine (ZyPREXA) 5 mg DAILY PO 12/04/20 09:00 12/08/20 14:20 DC 12/08/20 08:41 Olanzapine (ZyPREXA) 2.5 mg DAILY PO 12/09/20 09:00 12/15/20 08:43 Divalproex Sodium (Depakote Sprinkles) 1,000 mg HS PO 12/09/20 21:00 12/15/20 21:24 DC 12/15/20 20:41 Divalproex Sodium (Depakote Er) 1,000 mg QHS PO 12/16/20 21:00 I have reviewed the current psychotropics carefully including drug interactions. Risk benefit ratio favors no change other than as noted in my dictated progress note. Diagnosis: Problems: (1) Impulse control disorder, unspecified (2) Anxiety disorder, unspecified (3) Dementia, vascular, with depression (4) Dementia, vascular, with delusions (5) Dementia in Alzheimer's disease with depression (6) Dementia in Alzheimer's disease with delusions (7) Dementia of the Alzheimer's type with early onset with behavioral disturbance (8) Major neurocognitive disorder SONIA REILLY MD Dec 16, 2020 06:49
[2020-12-16] MEDS: POLYETHYLENE GLYCOL 3350 17 GM PACKET. PO SCH (08:36)
[2020-12-16] MEDS: ASPIRIN CHEWABLE 81 MG TABLET. PO SCH (08:36)
[2020-12-16] MEDS: SERTRALINE 100 MG TABLET. PO SCH (08:36)
[2020-12-16] MEDS: TAMSULOSIN 0.4 MG CAP.ER.24H. PO SCH (08:36)
[2020-12-16] MEDS: SENNOSIDES/DOCUSATE 8.6/50MG TABLET. PO SCH (08:36)
[2020-12-16] MEDS: DONEPEZIL HCL 10 MG TABLET PO SCH (08:37)
[2020-12-16] MEDS: OLANZapine 2.5 MG TABLET PO SCH (08:37)
[2020-12-16] MEDS: OLANZapine 5 MG TABLET PO SCH ×2 (12:19→19:39)
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
--- NOTE | 2020-12-16 14:02 | NUR ---
MARIAM met with pt to complete Zoom meeting with Augustina at [facility]. Pt was able to answer some questions about his date of , his children's names and if he has any trouble with ADLs Pt was able to stand up and move around so that Augustina could assess his independence. MARIAM was asked to fax over an updated medication list and recent vital signs for pt. Augustina is to follow up with her shuttle fitting supervisor and will then follow up with pt dtr [facility]. MARIAM explained to pt that it was a facility near his dtr that is thinking about taking him. Pt appeared relieved to hear that stating "I have friends up here but being near [place] would be just fine with me". MARIAM will update pt dtr and let pt know the plan for discharge once one has been set.
--- NOTE | 2020-12-16 14:39 | NUR ---
Treatment team note: Pt is eating between 75-100% of meals and sleeping on average 7 hours per night. Pt is mostly withdrawn to his room and needs encouragement to come out and attend groups. Pt walks the hallways and hits intercom buttons but does not wait for anyone to answer. Pt has attended two groups with minimal participation. SW is working with pt family on finding new placement in which pt is able to discharge once possible.
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
--- NOTE | 2020-12-16 14:50 | NUR ---
MARIAM spoke with pt dtr, [facility], and let her know that treatment team was earlier and SW attempted to contact her to participate. SW gave her an update on how pt is doing and discussed completion of the Zoom meeting. Pt was very appropriate during the meeting and MARIAM was able to explain to pt that the plan was to find a place closer to [facility] in which pt was "perfectly okay with that". [facility] has two facilities she is attempting to decide between but is thankful Jocelyn believes they can take pt. MARIAM was requested to send updated records and planned to do so first thing Tuesday. No other concerns were noted and [facility] will continue to keep MARIAM updated on pt move and which facility is chosen in order to finalize discharge plans.
[2020-12-16 15:55] VITALS: BP 98/64
[2020-12-16] MEDS: MELATONIN 3 MG TABLET PO SCH (19:39)
[2020-12-16] MEDS: DIVALPROEX ER 500 MG TAB.ER.24H PO SCH (19:40)
[2020-12-16] MEDS: ATORVASTATIN CALCIUM 20 MG TABLET PO SCH (19:41)
--- NOTE | 2020-12-16 22:11 | PDOC ---
Exam Note: Obey Note: Please also refer to the separate dictated note~for this date of service dictated separately.~Patient seen individually. Discussed the patient with Nursing staff reviewed the chart.~Reviewed interim history and current functioning. Reviewed vital signs,~Labs/ Radiology~and current medications noted below. Continue current treatment with the changes noted in the dictated addendum note Assessment: Vital Signs/I&O: Vital Signs Date Time Temp Pulse Resp B/P (MAP) Pulse Ox O2 Delivery O2 Flow Rate FiO2 12/16/20 15:55 97.1 76 18 98/64 (75) 96 Room Air I & O 12/15/20 12/15/20 12/16/20 15:00 23:00 07:00 Intake Total 840 ml 360 ml Balance 840 ml 360 ml Current Medications: Meds: Current Medications Medications (Trade) Dose Ordered Sig/Veto Route PRN Reason Start Time Stop Time Status Last Admin Dose Admin Divalproex Sodium (Depakote Er) 500 mg DAILY PO 11/30/20 09:00 12/03/20 17:20 DC 12/03/20 08:13 Donepezil HCl (Aricept) 10 mg DAILY PO 11/30/20 09:00 12/16/20 08:37 Melatonin (Melatonin) 3 mg HS PO 11/30/20 21:00 12/16/20 19:39 Olanzapine (ZyPREXA) 5 mg AFTRNOON PO 11/30/20 13:00 12/16/20 12:19 Olanzapine (ZyPREXA) 5 mg HS PO 11/30/20 21:00 12/16/20 19:39 Olanzapine (ZyPREXA) 10 mg DAILY PO 11/30/20 09:00 12/03/20 19:22 DC 12/03/20 08:13 Sertraline HCl (Zoloft) 100 mg DAILY PO 11/30/20 09:00 12/16/20 08:36 Acetaminophen (Tylenol) 650 mg PRN Q6HRS PRN PO MILD PAIN / TEMP > 100.3'F 11/30/20 04:45 12/07/20 08:21 Aspirin (Aspirin Chewable) 81 mg DAILY PO 11/30/20 09:00 12/16/20 08:36 Polyethylene Glycol (miraLAX) 17 gm DAILY PO 11/30/20 09:00 12/16/20 08:36 Senna/Docusate Sodium (Senna Plus) 1 tab DAILY PO 11/30/20 09:00 12/16/20 08:36 Tamsulosin HCl (Flomax) 0.4 mg DAILY PO 11/30/20 09:00 12/16/20 08:36 Atorvastatin Calcium (Lipitor) 40 mg QHS PO 11/30/20 21:00 12/16/20 19:41 Olanzapine (ZyPREXA ZYDIS) 2.5 mg PRN Q2HR PRN PO PSYCHOSIS 11/30/20 04:45 12/16/20 19:41 Multi-Ingredient Ointment (Analgesic [place]) 1 denia PRN QID PRN TP MUSCLE PAIN 11/30/20 04:45 Al Hydroxide/Mg Hydroxide (Mylanta Plus Xs) 15 ml PRN AFTMEALHC PRN PO DYSPEPSIA 11/30/20 04:45 Magnesium Hydroxide (Milk Of Magnesia) 2,400 mg PRN QHS PRN PO CONSTIPATION 11/30/20 04:45 Oxycodone HCl (Roxicodone) 5 mg PRN Q3HRS PRN PO SEVERE OR PERSISTANT PAIN 11/30/20 13:30 Divalproex Sodium (Depakote Er) 750 mg HS PO 12/04/20 21:00 12/09/20 15:46 DC 12/08/20 20:04 Olanzapine (ZyPREXA) 5 mg DAILY PO 12/04/20 09:00 12/08/20 14:20 DC 12/08/20 08:41 Olanzapine (ZyPREXA) 2.5 mg DAILY PO 12/09/20 09:00 12/16/20 08:37 Divalproex Sodium (Depakote Sprinkles) 1,000 mg HS PO 12/09/20 21:00 12/15/20 21:24 DC 12/15/20 20:41 Divalproex Sodium (Depakote Er) 1,000 mg QHS PO 12/16/20 21:00 12/16/20 19:40 Current Medications Medications (Trade) Dose Ordered Sig/Veto Route PRN Reason Start Time Stop Time Status Last Admin Dose Admin Divalproex Sodium (Depakote Er) 1,000 mg QHS PO 12/16/20 21:00 7/6/21 19:40 I have reviewed the current psychotropics carefully including drug interactions. Risk benefit ratio favors no change other than as noted in my dictated progress note. Diagnosis: Problems: (1) Impulse control disorder, unspecified (2) Anxiety disorder, unspecified (3) Dementia, vascular, with depression (4) Dementia, vascular, with delusions (5) Dementia in Alzheimer's disease with depression (6) Dementia in Alzheimer's disease with delusions (7) Dementia of the Alzheimer's type with early onset with behavioral disturbance (8) Major neurocognitive disorder SONIA REILLY MD Dec 16, 2020 22:11
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
[2020-12-17 06:01] VITALS: BP 123/80
[2020-12-17] MEDS: TAMSULOSIN 0.4 MG CAP.ER.24H. PO SCH (08:21)
[2020-12-17] MEDS: OLANZapine 2.5 MG TABLET PO SCH (08:21)
[2020-12-17] MEDS: ASPIRIN CHEWABLE 81 MG TABLET. PO SCH (08:21)
[2020-12-17] MEDS: POLYETHYLENE GLYCOL 3350 17 GM PACKET. PO SCH (08:21)
[2020-12-17] MEDS: DONEPEZIL HCL 10 MG TABLET PO SCH (08:21)
[2020-12-17] MEDS: SENNOSIDES/DOCUSATE 8.6/50MG TABLET. PO SCH (08:21)
[2020-12-17] MEDS: SERTRALINE 100 MG TABLET. PO SCH (08:21)
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
--- NOTE | 2020-12-17 10:38 | NUR ---
This patient wandering in hallway, exit seeking at times. Up for meal. Alert to elf , No complaints of pain of distress.Pt. cooperative with medication.
[2020-12-17] MEDS: OLANZapine 5 MG TABLET PO SCH ×2 (12:57→20:28)
[2020-12-17 16:26] VITALS: BP 128/85
[2020-12-17] MEDS: DIVALPROEX ER 500 MG TAB.ER.24H PO SCH (20:27)
[2020-12-17] MEDS: MELATONIN 3 MG TABLET PO SCH (20:27)
[2020-12-17] MEDS: ATORVASTATIN CALCIUM 20 MG TABLET PO SCH (20:27)
--- NOTE | 2020-12-17 21:50 | PDOC ---
Exam Note: Obey Note: Please also refer to the separate dictated note~for this date of service dictated separately.~Patient seen individually. Discussed the patient with Nursing staff reviewed the chart.~Reviewed interim history and current functioning. Reviewed vital signs,~Labs/ Radiology~and current medications noted below. Continue current treatment with the changes noted in the dictated addendum note Assessment: Vital Signs/I&O: Vital Signs Date Time Temp Pulse Resp B/P (MAP) Pulse Ox O2 Delivery O2 Flow Rate FiO2 12/17/20 16:26 97.9 98 18 128/85 (99) 100 12/17/20 06:01 Room Air I & O 12/16/20 12/16/20 12/17/20 15:00 23:00 07:00 Intake Total 720 ml 360 ml 120 ml Balance 720 ml 360 ml 120 ml Current Medications: Meds: Current Medications Medications (Trade) Dose Ordered Sig/Veto Route PRN Reason Start Time Stop Time Status Last Admin Dose Admin Divalproex Sodium (Depakote Er) 500 mg DAILY PO 11/30/20 09:00 12/03/20 17:20 DC 12/03/20 08:13 Donepezil HCl (Aricept) 10 mg DAILY PO 11/30/20 09:00 12/17/20 08:21 Melatonin (Melatonin) 3 mg HS PO 11/30/20 21:00 12/17/20 20:27 Olanzapine (ZyPREXA) 5 mg AFTRNOON PO 11/30/20 13:00 12/17/20 12:57 Olanzapine (ZyPREXA) 5 mg HS PO 11/30/20 21:00 12/17/20 20:28 Olanzapine (ZyPREXA) 10 mg DAILY PO 11/30/20 09:00 12/03/20 19:22 DC 12/03/20 08:13 Sertraline HCl (Zoloft) 100 mg DAILY PO 11/30/20 09:00 12/17/20 08:21 Acetaminophen (Tylenol) 650 mg PRN Q6HRS PRN PO MILD PAIN / TEMP > 100.3'F 11/30/20 04:45 12/07/20 08:21 Aspirin (Aspirin Chewable) 81 mg DAILY PO 11/30/20 09:00 12/17/20 08:21 Polyethylene Glycol (miraLAX) 17 gm DAILY PO 11/30/20 09:00 12/17/20 08:21 Senna/Docusate Sodium (Senna Plus) 1 tab DAILY PO 11/30/20 09:00 12/17/20 08:21 Tamsulosin HCl (Flomax) 0.4 mg DAILY PO 11/30/20 09:00 12/17/20 08:21 Atorvastatin Calcium (Lipitor) 40 mg QHS PO 11/30/20 21:00 12/17/20 20:27 Olanzapine (ZyPREXA ZYDIS) 2.5 mg PRN Q2HR PRN PO PSYCHOSIS 11/30/20 04:45 12/16/20 19:41 Multi-Ingredient Ointment (Analgesic [place]) 1 denia PRN QID PRN TP MUSCLE PAIN 11/30/20 04:45 Al Hydroxide/Mg Hydroxide (Mylanta Plus Xs) 15 ml PRN AFTMEALHC PRN PO DYSPEPSIA 11/30/20 04:45 Magnesium Hydroxide (Milk Of Magnesia) 2,400 mg PRN QHS PRN PO CONSTIPATION 11/30/20 04:45 Oxycodone HCl (Roxicodone) 5 mg PRN Q3HRS PRN PO SEVERE OR PERSISTANT PAIN 11/30/20 13:30 Divalproex Sodium (Depakote Er) 750 mg HS PO 12/04/20 21:00 12/09/20 15:46 DC 12/08/20 20:04 Olanzapine (ZyPREXA) 5 mg DAILY PO 12/04/20 09:00 12/08/20 14:20 DC 12/08/20 08:41 Olanzapine (ZyPREXA) 2.5 mg DAILY PO 12/09/20 09:00 12/17/20 08:21 Divalproex Sodium (Depakote Sprinkles) 1,000 mg HS PO 12/09/20 21:00 12/15/20 21:24 DC 12/15/20 20:41 Divalproex Sodium (Depakote Er) 1,000 mg QHS PO 12/16/20 21:00 12/17/20 20:27 I have reviewed the current psychotropics carefully including drug interactions. Risk benefit ratio favors no change other than as noted in my dictated progress note. Diagnosis: Problems: (1) Impulse control disorder, unspecified (2) Anxiety disorder, unspecified (3) Dementia, vascular, with depression (4) Dementia, vascular, with delusions (5) Dementia in Alzheimer's disease with depression (6) Dementia in Alzheimer's disease with delusions (7) Dementia of the Alzheimer's type with early onset with behavioral disturban ce (8) Major neurocognitive disorder SONIA REILLY MD Dec 17, 2020 21:50
--- NOTE | 2020-12-18 01:04 | NUR ---
Pt walking in hallway when approached. Pt calm, confused, and disorganized. Pt cooperative with assessment and compliant with medications administered whole. No agitation or aggression noted thus far this shift.
[2020-12-18 06:07] VITALS: BP 99/65
[2020-12-18 06:43] LABS: BASO % 1 % (0-3); EOS # 0.1 x10^3/uL (0.0-0.7); EOS % 1 % (0-3); HEMATOCRIT 36.4 % (39.0-53.0); HEMOGLOBIN 11.7 g/dL (13.0-17.5); LYMPH # 1.2 x10^3/uL (1.0-4.8); LYMPH % 22 % (24-48); MEAN CORPUSCULAR HEMOGLOBIN 28 pg (25-35); MEAN CORPUSCULAR HGB CONC 32 g/dL (31-37); MEAN CORPUSCULAR VOLUME 87 fL (79-100); MONO # 0.7 x10^3/uL (0.0-1.1); MONO % 13 % (0-9); NEUT # 3.6 x10^3uL (1.8-7.7); NEUT % 64 % (31-73); PLATELET COUNT 170 x10^3/uL (140-400); RED BLOOD COUNT 4.19 x10^6/uL (4.30-5.70); RED CELL DISTRIBUTION WIDTH 17.9 % (11.5-14.5); WHITE BLOOD COUNT 5.6 x10^3/uL (4.0-11.0)
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
[2020-12-18 07:03] LABS: ALBUMIN 3.1 g/dL (3.4-5.0); CALCIUM 8.8 mg/dL (8.5-10.1); CREATININE 1.1 mg/dL (0.7-1.3); GFR 64.2; POTASSIUM 4.2 mmol/L (3.5-5.1); TOTAL BILIRUBIN 0.4 mg/dL (0.2-1.0); TOTAL PROTEIN 6.1 g/dL (6.4-8.2)
[2020-12-18] MEDS: SENNOSIDES/DOCUSATE 8.6/50MG TABLET. PO SCH (08:13)
[2020-12-18] MEDS: TAMSULOSIN 0.4 MG CAP.ER.24H. PO SCH (08:13)
[2020-12-18] MEDS: POLYETHYLENE GLYCOL 3350 17 GM PACKET. PO SCH (08:13)
[2020-12-18] MEDS: OLANZapine 2.5 MG TABLET PO SCH (08:13)
[2020-12-18] MEDS: SERTRALINE 100 MG TABLET. PO SCH (08:13)
[2020-12-18] MEDS: ASPIRIN CHEWABLE 81 MG TABLET. PO SCH (08:13)
[2020-12-18] MEDS: DONEPEZIL HCL 10 MG TABLET PO SCH (08:13)
[2020-12-18] MEDS: OLANZapine 5 MG TABLET PO SCH ×2 (12:41→20:49)
--- NOTE | 2020-12-18 13:14 | NUR ---
PATIENT IS CALM AND COOPERATIVE UPON ASSESSMENT, COMPLIANT WITH MEDICATIONS TAKEN WHOLE. PATIENT OBSERVED SITTING QUIETLY IN A DAY ROOM OR IN HIS ROOM NAPPING. NO AGITATION NOTED AT THIS TIME.
[2020-12-18 16:18] VITALS: BP 111/65
[2020-12-18] MEDS: ATORVASTATIN CALCIUM 20 MG TABLET PO SCH (20:49)
[2020-12-18] MEDS: MELATONIN 3 MG TABLET PO SCH (20:49)
[2020-12-18] MEDS: DIVALPROEX ER 500 MG TAB.ER.24H PO SCH (20:50)
--- NOTE | 2020-12-18 22:22 | PDOC ---
Exam Note: Obey Note: Please also refer to the separate dictated note~for this date of service dictated separately.~Patient seen individually. Discussed the patient with Nursing staff reviewed the chart.~Reviewed interim history and current functioning. Reviewed vital signs,~Labs/ Radiology~and current medications noted below. Continue current treatment with the changes noted in the dictated addendum note Assessment: Vital Signs/I&O: Vital Signs Date Time Temp Pulse Resp B/P (MAP) Pulse Ox O2 Delivery O2 Flow Rate FiO2 12/18/20 16:18 98.3 86 19 111/65 (80) 97 12/18/20 06:07 Room Air I & O 12/17/20 12/17/20 12/18/20 15:00 23:00 07:00 Intake Total 720 ml 510 ml Balance 720 ml 510 ml Labs: Laboratory Tests Test 12/18/20 06:25 White Blood Count 5.6 x10^3/uL (4.0-11.0) Red Blood Count 4.19 x10^6/uL (4.30-5.70) L Hemoglobin 11.7 g/dL (13.0-17.5) L Hematocrit 36.4 % (39.0-53.0) L Mean Corpuscular Volume 87 fL (79-100) Mean Corpuscular Hemoglobin 28 pg (25-35) Mean Corpuscular Hemoglobin Concent 32 g/dL (31-37) Red Cell Distribution Width 17.9 % (11.5-14.5) H Platelet Count 170 x10^3/uL (140-400) Neutrophils (%) (Auto) 64 % (31-73) Lymphocytes (%) (Auto) 22 % (24-48) L Monocytes (%) (Auto) 13 % (0-9) H Eosinophils (%) (Auto) 1 % (0-3) Basophils (%) (Auto) 1 % (0-3) Neutrophils # (Auto) 3.6 x10^3uL (1.8-7.7) Lymphocytes # (Auto) 1.2 x10^3/uL (1.0-4.8) Monocytes # (Auto) 0.7 x10^3/uL (0.0-1.1) Eosinophils # (Auto) 0.1 x10^3/uL (0.0-0.7) Basophils # (Auto) 0.0 x10^3/uL (0.0-0.2) Sodium Level 145 mmol/L (136-145) Potassium Level 4.2 mmol/L (3.5-5.1) Chloride Level 110 mmol/L (98-107) H Carbon Dioxide Level 28 mmol/L (21-32) Anion Gap 7 (6-14) Blood Urea Nitrogen 22 mg/dL (8-26) Creatinine 1.1 mg/dL (0.7-1.3) Estimated GFR (Cockcroft-Gault) 64.2 BUN/Creatinine Ratio 20 (6-20) Glucose Level 82 mg/dL (70-99) Calcium Level 8.8 mg/dL (8.5-10.1) Total Bilirubin 0.4 mg/dL (0.2-1.0) Aspartate Amino Transferase (AST) 12 U/L (15-37) L Alanine Aminotransferase (ALT) 18 U/L (16-63) Alkaline Phosphatase 104 U/L (46-116) Total Protein 6.1 g/dL (6.4-8.2) L Albumin 3.1 g/dL (3.4-5.0) L Albumin/Globulin Ratio 1.0 (1.0-1.7) Current Medications: I have reviewed the current psychotropics carefully including drug interactions. Risk benefit ratio favors no change other than as noted in my dictated progress note. Diagnosis: Problems: (1) Impulse control disorder, unspecified (2) Anxiety disorder, unspecified (3) Dementia, vascular, with depression (4) Dementia, vascular, with delusions (5) Dementia in Alzheimer's disease with depression (6) Dementia in Alzheimer's disease with delusions (7) Dementia of the Alzheimer's type with early onset with behavioral disturbance (8) Major neurocognitive disorder SONIA REILLY MD Dec 18, 2020 22:22
--- NOTE | 2020-12-19 03:37 | NUR ---
Last evening pt sat in the day room before going to bed. He has been pleasant and cooperative tonight with no behaviors. He took meds whole without difficulty.
[2020-12-19 06:42] VITALS: BP 105/67
--- NOTE | 2020-12-19 07:10 | PDOC ---
Exam Note: Obey Note: This note is a late entry for 12/18/2020 covers elements not covered in my initial note. Subjective: The patient was seen individually in the evening of 12/18/2020 with Annabel EDGAR, discussed and reviewed the chart. The patient slept 7-3/4 hours previous night. She has had a good day, confused, wanders the hallways, redirectable, not aggressive, at times does door check. Review of Systems: Ambulation impaired with walker. No CV, , pulmonary, eye, ENT system symptoms on review. Reliability poor. Mental Status Exam: The patient is reasonably oriented to himself. Insight and judgment, recent and remote memory, attention and concentration is poor consistent with his diagnoses. Speech moderate latency. Often response is monosyllabic. Laboratory Data: Reviewed. Impression: Major neurocognitive disorder, Alzheimer, vascular with delusion, depression, behavioral disturbance. Anxiety disorder unspecified. Impulse control disorder unspecified. Plan: Continue psychotropics unchanged. Social service staff has informed me for [facility] [place] has been arranged for this Tuesday. Assessment: Vital Signs/I&O: Vital Signs Date Time Temp Pulse Resp B/P (MAP) Pulse Ox O2 Delivery O2 Flow Rate FiO2 12/19/20 06:42 96.8 73 18 105/67 (80) 99 12/18/20 06:07 Room Air I & O 12/18/20 12/18/20 12/19/20 15:00 23:00 07:00 Intake Total 720 ml 720 ml Balance 720 ml 720 ml Current Medications: Meds: Current Medications Medications (Trade) Dose Ordered Sig/Veto Route PRN Reason Start Time Stop Time Status Last Admin Dose Admin Divalproex Sodium (Depakote Er) 500 mg DAILY PO 11/30/20 09:00 12/03/20 17:20 DC 12/03/20 08:13 Donepezil HCl (Aricept) 10 mg DAILY PO 11/30/20 09:00 12/18/20 08:13 Melatonin (Melatonin) 3 mg HS PO 11/30/20 21:00 12/18/20 20:49 Olanzapine (ZyPREXA) 5 mg AFTRNOON PO 11/30/20 13:00 12/18/20 12:41 Olanzapine (ZyPREXA) 5 mg HS PO 11/30/20 21:00 12/18/20 20:49 Olanzapine (ZyPREXA) 10 mg DAILY PO 11/30/20 09:00 12/03/20 19:22 DC 12/03/20 08:13 Sertraline HCl (Zoloft) 100 mg DAILY PO 11/30/20 09:00 12/18/20 08:13 Acetaminophen (Tylenol) 650 mg PRN Q6HRS PRN PO MILD PAIN / TEMP > 100.3'F 11/30/20 04:45 12/07/20 08:21 Aspirin (Aspirin Chewable) 81 mg DAILY PO 11/30/20 09:00 12/18/20 08:13 Polyethylene Glycol (miraLAX) 17 gm DAILY PO 11/30/20 09:00 12/18/20 08:13 Senna/Docusate Sodium (Senna Plus) 1 tab DAILY PO 11/30/20 09:00 12/18/20 08:13 Tamsulosin HCl (Flomax) 0.4 mg DAILY PO 11/30/20 09:00 12/18/20 08:13 Atorvastatin Calcium (Lipitor) 40 mg QHS PO 11/30/20 21:00 12/18/20 20:49 Olanzapine (ZyPREXA ZYDIS) 2.5 mg PRN Q2HR PRN PO PSYCHOSIS 11/30/20 04:45 12/16/20 19:41 Multi-Ingredient Ointment (Analgesic [place]) 1 denia PRN QID PRN TP MUSCLE PAIN 11/30/20 04:45 Al Hydroxide/Mg Hydroxide (Mylanta Plus Xs) 15 ml PRN AFTMEALHC PRN PO DYSPEPSIA 11/30/20 04:45 Magnesium Hydroxide (Milk Of Magnesia) 2,400 mg PRN QHS PRN PO CONSTIPATION 11/30/20 04:45 Oxycodone HCl (Roxicodone) 5 mg PRN Q3HRS PRN PO SEVERE OR PERSISTANT PAIN 11/30/20 13:30 Divalproex Sodium (Depakote Er) 750 mg HS PO 12/04/20 21:00 12/09/20 15:46 DC 12/08/20 20:04 Olanzapine (ZyPREXA) 5 mg DAILY PO 12/04/20 09:00 12/08/20 14:20 DC 12/08/20 08:41 Olanzapine (ZyPREXA) 2.5 mg DAILY PO 12/09/20 09:00 12/18/20 08:13 Divalproex Sodium (Depakote Sprinkles) 1,000 mg HS PO 12/09/20 21:00 12/15/20 21:24 DC 12/15/20 20:41 Divalproex Sodium (Depakote Er) 1,000 mg QHS PO 12/16/20 21:00 12/18/20 20:50 I have reviewed the current psychotropics carefully including drug interactions. Risk benefit ratio favors no change other than as noted in my dictated progress note. Diagnosis: Problems: (1) Impulse control disorder, unspecified (2) Anxiety disorder, unspecified (3) Dementia, vascular, with depression (4) Dementia, vascular, with delusions (5) Dementia in Alzheimer's disease with depression (6) Dementia in Alzheimer's disease with delusions (7) Dementia of the Alzheimer's type with early onset with behavioral disturbance (8) Major neurocognitive disorder SONIA REILLY MD Dec 19, 2020 07:10
[2020-12-19] MEDS: POLYETHYLENE GLYCOL 3350 17 GM PACKET. PO SCH (08:31)
[2020-12-19] MEDS: SERTRALINE 100 MG TABLET. PO SCH (08:32)
[2020-12-19] MEDS: SENNOSIDES/DOCUSATE 8.6/50MG TABLET. PO SCH (08:32)
[2020-12-19] MEDS: ASPIRIN CHEWABLE 81 MG TABLET. PO SCH (08:32)
[2020-12-19] MEDS: DONEPEZIL HCL 10 MG TABLET PO SCH (08:32)
[2020-12-19] MEDS: TAMSULOSIN 0.4 MG CAP.ER.24H. PO SCH (08:32)
[2020-12-19] MEDS: OLANZapine 2.5 MG TABLET PO SCH (08:32)
[2020-12-19] MEDS: OLANZapine 5 MG TABLET PO SCH ×2 (12:31→21:44)
--- NOTE | 2020-12-19 14:10 | NUR ---
[facility] Social Work Discharge Planning Form Patient Name CARMEN PETER Admit Date: 30 November 2020 DISCHARGE PLAN Discharge Destination: Pt to discharge to [facility] Assessment: N/A Level II Assessment: N/A Transportation: Pt family to pick pt up around 0900. Special Instructions/Notes: Please fax discharge orders, discharge medication list and discharge summary to the fax number listed below. DISCHARGE TO FACILITY Facility: [facility] Address: [address] [place] [address] Contact Name: Augustina Barker, DON: Contact Name: Please ask for the nurse caring for pt upon admission. PCP: Dr. Carrero
[2020-12-19 15:59] VITALS: BP 94/51
--- NOTE | 2020-12-19 16:47 | NUR ---
Nursing note: Pt in dining room at time of AM med pass and assessment. He is pleasant, med compliant and cooperative. He denies having any pain. He has been up walking around the unit this shift and has occasionally pressed the doorbell to get off the unit. He is able to be redirected. Will continue to monitor.
[2020-12-19] MEDS: ATORVASTATIN CALCIUM 20 MG TABLET PO SCH (21:43)
[2020-12-19] MEDS: MELATONIN 3 MG TABLET PO SCH (21:44)
[2020-12-19] MEDS: DIVALPROEX ER 500 MG TAB.ER.24H PO SCH (21:44)
--- NOTE | 2020-12-19 22:08 | PDOC ---
Exam Note: Obey Note: Please also refer to the separate dictated note~for this date of service dictated separately.~Patient seen individually. Discussed the patient with Nursing staff reviewed the chart.~Reviewed interim history and current functioning. Reviewed vital signs,~Labs/ Radiology~and current medications noted below. Continue current treatment with the changes noted in the dictated addendum note Assessment: Vital Signs/I&O: Vital Signs Date Time Temp Pulse Resp B/P (MAP) Pulse Ox O2 Delivery O2 Flow Rate FiO2 12/19/20 15:59 97.5 64 20 94/51 (65) 98 12/18/20 06:07 Room Air I & O 12/18/20 12/18/20 12/19/20 15:00 23:00 07:00 Intake Total 720 ml 720 ml Balance 720 ml 720 ml Current Medications: Meds: Current Medications Medications (Trade) Dose Ordered Sig/Veto Route PRN Reason Start Time Stop Time Status Last Admin Dose Admin Divalproex Sodium (Depakote Er) 500 mg DAILY PO 11/30/20 09:00 12/03/20 17:20 DC 12/03/20 08:13 Donepezil HCl (Aricept) 10 mg DAILY PO 11/30/20 09:00 12/19/20 08:32 Melatonin (Melatonin) 3 mg HS PO 11/30/20 21:00 12/19/20 21:44 Olanzapine (ZyPREXA) 5 mg AFTRNOON PO 11/30/20 13:00 12/19/20 12:31 Olanzapine (ZyPREXA) 5 mg HS PO 11/30/20 21:00 12/19/20 21:44 Olanzapine (ZyPREXA) 10 mg DAILY PO 11/30/20 09:00 12/03/20 19:22 DC 12/03/20 08:13 Sertraline HCl (Zoloft) 100 mg DAILY PO 11/30/20 09:00 12/19/20 08:32 Acetaminophen (Tylenol) 650 mg PRN Q6HRS PRN PO MILD PAIN / TEMP > 100.3'F 11/30/20 04:45 12/07/20 08:21 Aspirin (Aspirin Chewable) 81 mg DAILY PO 11/30/20 09:00 12/19/20 08:32 Polyethylene Glycol (miraLAX) 17 gm DAILY PO 11/30/20 09:00 12/19/20 08:31 Senna/Docusate Sodium (Senna Plus) 1 tab DAILY PO 11/30/20 09:00 12/19/20 08:32 Tamsulosin HCl (Flomax) 0.4 mg DAILY PO 11/30/20 09:00 12/19/20 08:32 Atorvastatin Calcium (Lipitor) 40 mg QHS PO 11/30/20 21:00 12/19/20 21:43 Olanzapine (ZyPREXA ZYDIS) 2.5 mg PRN Q2HR PRN PO PSYCHOSIS 11/30/20 04:45 12/16/20 19:41 Multi-Ingredient Ointment (Analgesic [place]) 1 denia PRN QID PRN TP MUSCLE PAIN 11/30/20 04:45 Al Hydroxide/Mg Hydroxide (Mylanta Plus Xs) 15 ml PRN AFTMEALHC PRN PO DYSPEPSIA 11/30/20 04:45 Magnesium Hydroxide (Milk Of Magnesia) 2,400 mg PRN QHS PRN PO CONSTIPATION 11/30/20 04:45 Oxycodone HCl (Roxicodone) 5 mg PRN Q3HRS PRN PO SEVERE OR PERSISTANT PAIN 11/30/20 13:30 Divalproex Sodium (Depakote Er) 750 mg HS PO 12/04/20 21:00 12/09/20 15:46 DC 12/08/20 20:04 Olanzapine (ZyPREXA) 5 mg DAILY PO 12/04/20 09:00 12/08/20 14:20 DC 12/08/20 08:41 Olanzapine (ZyPREXA) 2.5 mg DAILY PO 12/09/20 09:00 12/19/20 08:32 Divalproex Sodium (Depakote Sprinkles) 1,000 mg HS PO 12/09/20 21:00 12/15/20 21:24 DC 12/15/20 20:41 Divalproex Sodium (Depakote Er) 1,000 mg QHS PO 12/16/20 21:00 12/19/20 21:44 I have reviewed the current psychotropics carefully including drug interactions. Risk benefit ratio favors no change other than as noted in my dictated progress note. 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
[2020-12-20] MEDS ORDERED: METH57CR17 TP (01:35)
[2020-12-20] MEDS ORDERED: OXYC5TAB4 PO (01:37)
[2020-12-20] MEDS ORDERED: OLAN2.5T3 PO (01:38)
[2020-12-20] MEDS ORDERED: MAG30ORA2 PO (01:39)
[2020-12-20] MEDS ORDERED: MAGN400O7 PO (01:39)
--- NOTE | 2020-12-20 03:42 | NUR ---
Nursing Note The patient was calm and cooperative this shift. The patient took his medication whole. The patient was pleasant during interactions with this nurse and was able to answer name only during his assessment. The patient was withdrawn to his room for most of the shift. The patient is currently sleeping in his room.
[2020-12-20 06:30] VITALS: BP 105/64
[2020-12-20] MEDS: ASPIRIN CHEWABLE 81 MG TABLET. PO SCH (08:31)
[2020-12-20] MEDS: TAMSULOSIN 0.4 MG CAP.ER.24H. PO SCH (08:31)
[2020-12-20] MEDS: SERTRALINE 100 MG TABLET. PO SCH (08:31)
[2020-12-20] MEDS: OLANZapine 2.5 MG TABLET PO SCH (08:31)
[2020-12-20] MEDS: DONEPEZIL HCL 10 MG TABLET PO SCH (08:32)
[2020-12-20] MEDS: SENNOSIDES/DOCUSATE 8.6/50MG TABLET. PO SCH (08:32)
[2020-12-20] MEDS: POLYETHYLENE GLYCOL 3350 17 GM PACKET. PO SCH (08:33)
--- NOTE | 2020-12-20 08:49 | NUR ---
Pt A&O to name and only. He is absent of SI/HI/VH/AH/delusions/pain. He has no complaints at this time. He is flat in affect, quiet, socially withdrawn. He is compliant with whole medications. Plan of care continues, preparing for d/c.
--- NOTE | 2020-12-20 10:01 | NUR ---
Contacted [facility] ([phone]). I was told that "there is no nurse on staff until 1:00 pm." Will call back to give report.
--- NOTE | 2020-12-20 10:03 | NUR ---
Transition Record was faxed to follow-up provider with the following elements: Reason for admission, procedures, tests, principal diagnosis, pending studies, patient instructions, 03/01 contact information for unit, phone number to obtain pending test results, plan for follow-up care, physician follow-up, advanced directive information, and medication list with dose, duration and instructions. This information was included in the following documents: History and physical, lab results, study results, progress notes, social work planning form, DC instruction form, patient visit summary, and medication reconciliation form. Date & time record faxed: 12/20/20223 Record faxed to: [facility] [phone] Record discussed with/ report given to: Contacted [facility] ([phone]). I was told that "there is no nurse on staff until 1:00 pm." Will call back to give report.
--- NOTE | 2020-12-20 13:31 | NUR ---
Contacted [facility] ([phone]). Gave nurse to nurse report to OSMANI Montiel LPN.
--- NOTE | 2020-12-20 22:21 | PDOC ---
Exam Note: Obey Note: Please also refer to the separate dictated note~for this date of service dictated separately.~Patient seen individually. Discussed the patient with Nursing staff reviewed the chart.~Reviewed interim history and current functioning. Reviewed vital signs,~Labs/ Radiology~and current medications noted below. Continue current treatment with the changes noted in the dictated addendum note Assessment: Vital Signs/I&O: Vital Signs Date Time Temp Pulse Resp B/P (MAP) Pulse Ox O2 Delivery O2 Flow Rate FiO2 12/20/20 06:30 97.2 60 18 105/64 (78) 96 12/18/20 06:07 Room Air I & O 12/19/20 12/19/20 12/20/20 15:00 23:00 07:00 Intake Total 600 ml 720 ml Balance 600 ml 720 ml Current Medications: Meds: Current Medications Medications (Trade) Dose Ordered Sig/Veto Route PRN Reason Start Time Stop Time Status Last Admin Dose Admin Divalproex Sodium (Depakote Er) 500 mg DAILY PO 11/30/20 09:00 12/03/20 17:20 DC 12/03/20 08:13 Donepezil HCl (Aricept) 10 mg DAILY PO 11/30/20 09:00 12/20/20 10:08 DC 12/20/20 08:32 Melatonin (Melatonin) 3 mg HS PO 11/30/20 21:00 12/20/20 10:08 DC 12/19/20 21:44 Olanzapine (ZyPREXA) 5 mg AFTRNOON PO 11/30/20 13:00 12/20/20 10:08 DC 12/19/20 12:31 Olanzapine (ZyPREXA) 5 mg HS PO 11/30/20 21:00 12/20/20 10:08 DC 12/19/20 21:44 Olanzapine (ZyPREXA) 10 mg DAILY PO 11/30/20 09:00 12/03/20 19:22 DC 12/03/20 08:13 Sertraline HCl (Zoloft) 100 mg DAILY PO 11/30/20 09:00 12/20/20 10:08 DC 12/20/20 08:31 Acetaminophen (Tylenol) 650 mg PRN Q6HRS PRN PO MILD PAIN / TEMP > 100.3'F 11/30/20 04:45 12/20/20 10:08 DC 12/07/20 08:21 Aspirin (Aspirin Chewable) 81 mg DAILY PO 11/30/20 09:00 12/20/20 10:08 DC 12/20/20 08:31 Polyethylene Glycol (miraLAX) 17 gm DAILY PO 11/30/20 09:00 12/20/20 10:08 DC 12/19/20 08:31 Senna/Docusate Sodium (Senna Plus) 1 tab DAILY PO 11/30/20 09:00 12/20/20 10:08 DC 12/20/20 08:32 Tamsulosin HCl (Flomax) 0.4 mg DAILY PO 11/30/20 09:00 12/20/20 10:08 DC 12/20/20 08:31 Atorvastatin Calcium (Lipitor) 40 mg QHS PO 11/30/20 21:00 12/20/20 10:08 DC 12/19/20 21:43 Olanzapine (ZyPREXA ZYDIS) 2.5 mg PRN Q2HR PRN PO PSYCHOSIS 11/30/20 04:45 12/20/20 10:08 DC 12/16/20 19:41 Multi-Ingredient Ointment (Analgesic [place]) 1 denia PRN QID PRN TP MUSCLE PAIN 11/30/20 04:45 12/20/20 10:08 DC Al Hydroxide/Mg Hydroxide (Mylanta Plus Xs) 15 ml PRN AFTMEALHC PRN PO DYSPEPSIA 11/30/20 04:45 12/20/20 10:08 DC Magnesium Hydroxide (Milk Of Magnesia) 2,400 mg PRN QHS PRN PO CONSTIPATION 11/30/20 04:45 12/20/20 10:08 DC Oxycodone HCl (Roxicodone) 5 mg PRN Q3HRS PRN PO SEVERE OR PERSISTANT PAIN 11/30/20 13:30 12/20/20 10:08 DC Divalproex Sodium (Depakote Er) 750 mg HS PO 12/04/20 21:00 12/09/20 15:46 DC 12/08/20 20:04 Olanzapine (ZyPREXA) 5 mg DAILY PO 12/04/20 09:00 12/08/20 14:20 DC 12/08/20 08:41 Olanzapine (ZyPREXA) 2.5 mg DAILY PO 12/09/20 09:00 12/20/20 10:08 DC 12/20/20 08:31 Divalproex Sodium (Depakote Sprinkles) 1,000 mg HS PO 12/09/20 21:00 12/15/20 21:24 DC 12/15/20 20:41 Divalproex Sodium (Depakote Er) 1,000 mg QHS PO 12/16/20 21:00 12/20/20 10:08 DC 12/19/20 21:44 I have reviewed the current psychotropics carefully including drug interactions. Risk benefit ratio favors no change other than as noted in my dictated progress note. Diagnosis: Problems: (1) Impulse control disorder, unspecified (2) Anxiety disorder, unspecified (3) Dementia, vascular, with depression (4) Dementia, vascular, with delusions (5) Dementia in Alzheimer's disease with depression (6) Dementia in Alzheimer's disease with delusions (7) Dementia of the Alzheimer's type with early onset with behavioral disturbance (8) Major neurocognitive disorder SONIA REILLY MD Dec 20, 2020 22:21
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
--- NOTE | 2020-12-21 08:21 | PDOC ---
Exam Note: Obey Note: This note is a late entry for 12/19/2020 covers elements not covered in my initial note. Subjective: The patient was seen individually in the evening of 12/19/2020 with Lissette EDGAR, discussed and reviewed the chart. The patient slept 8-1/4 hours previous night. She remains confused. No behaviours or aggression noted. Discharge plans to the residential for 12/20. She is easily redirected. Review of Systems: Ambulation impaired with walker. No CV, , pulmonary, eye, ENT system symptoms on review. Mental Status Exam: The patient is reasonably oriented to himself. Insight and judgment, recent and remote memory, attention and concentration is poor consistent with his diagnoses. Speech moderate latency. Often response is monosyllabic. Laboratory Data: Reviewed. Impression: Major neurocognitive disorder, Alzheimer, vascular with delusion, depression, behavioral disturbance. Anxiety disorder unspecified. Impulse control disorder unspecified. Plan: Continue psychotropics unchanged. Assessment: Vital Signs/I&O: Vital Signs Date Time Temp Pulse Resp B/P (MAP) Pulse Ox O2 Delivery O2 Flow Rate FiO2 12/20/20 06:30 97.2 60 18 105/64 (78) 96 12/18/20 06:07 Room Air I & O 12/20/20 12/20/20 12/21/20 15:00 23:00 07:00 Intake Total 210 ml Balance 210 ml Current Medications: Meds: Current Medications Medications (Trade) Dose Ordered Sig/Veto Route PRN Reason Start Time Stop Time Status Last Admin Dose Admin Divalproex Sodium (Depakote Er) 500 mg DAILY PO 11/30/20 09:00 12/03/20 17:20 DC 12/03/20 08:13 Donepezil HCl (Aricept) 10 mg DAILY PO 11/30/20 09:00 12/20/20 10:08 DC 12/20/20 08:32 Melatonin (Melatonin) 3 mg HS PO 11/30/20 21:00 12/20/20 10:08 DC 12/19/20 21:44 Olanzapine (ZyPREXA) 5 mg AFTRNOON PO 11/30/20 13:00 12/20/20 10:08 DC 12/19/20 12:31 Olanzapine (ZyPREXA) 5 mg HS PO 11/30/20 21:00 12/20/20 10:08 DC 12/19/20 21:44 Olanzapine (ZyPREXA) 10 mg DAILY PO 11/30/20 09:00 12/03/20 19:22 DC 12/03/20 08:13 Sertraline HCl (Zoloft) 100 mg DAILY PO 11/30/20 09:00 12/20/20 10:08 DC 12/20/20 08:31 Acetaminophen (Tylenol) 650 mg PRN Q6HRS PRN PO MILD PAIN / TEMP > 100.3'F 11/30/20 04:45 12/20/20 10:08 DC 12/07/20 08:21 Aspirin (Aspirin Chewable) 81 mg DAILY PO 11/30/20 09:00 12/20/20 10:08 DC 12/20/20 08:31 Polyethylene Glycol (miraLAX) 17 gm DAILY PO 11/30/20 09:00 12/20/20 10:08 DC 12/19/20 08:31 Senna/Docusate Sodium (Senna Plus) 1 tab DAILY PO 11/30/20 09:00 12/20/20 10:08 DC 12/20/20 08:32 Tamsulosin HCl (Flomax) 0.4 mg DAILY PO 11/30/20 09:00 12/20/20 10:08 DC 12/20/20 08:31 Atorvastatin Calcium (Lipitor) 40 mg QHS PO 11/30/20 21:00 12/20/20 10:08 DC 12/19/20 21:43 Olanzapine (ZyPREXA ZYDIS) 2.5 mg PRN Q2HR PRN PO PSYCHOSIS 11/30/20 04:45 12/20/20 10:08 DC 12/16/20 19:41 Multi-Ingredient Ointment (Analgesic [place]) 1 denia PRN QID PRN TP MUSCLE PAIN 11/30/20 04:45 12/20/20 10:08 DC Al Hydroxide/Mg Hydroxide (Mylanta Plus Xs) 15 ml PRN AFTMEALHC PRN PO DYSPEPSIA 11/30/20 04:45 12/20/20 10:08 DC Magnesium Hydroxide (Milk Of Magnesia) 2,400 mg PRN QHS PRN PO CONSTIPATION 11/30/20 04:45 12/20/20 10:08 DC Oxycodone HCl (Roxicodone) 5 mg PRN Q3HRS PRN PO SEVERE OR PERSISTANT PAIN 11/30/20 13:30 12/20/20 10:08 DC Divalproex Sodium (Depakote Er) 750 mg HS PO 12/04/20 21:00 12/09/20 15:46 DC 12/08/20 20:04 Olanzapine (ZyPREXA) 5 mg DAILY PO 12/04/20 09:00 12/08/20 14:20 DC 12/08/20 08:41 Olanzapine (ZyPREXA) 2.5 mg DAILY PO 12/09/20 09:00 12/20/20 10:08 DC 12/20/20 08:31 Divalproex Sodium (Depakote Sprinkles) 1,000 mg HS PO 12/09/20 21:00 12/15/20 21:24 DC 12/15/20 20:41 Divalproex Sodium (Depakote Er) 1,000 mg QHS PO 12/16/20 21:00 12/20/20 10:08 DC 12/19/20 21:44 I have reviewed the current psychotropics carefully including drug interactions. Risk benefit ratio favors no change other than as noted in my dictated progress note. Diagnosis: Problems: (1) Impulse control disorder, unspecified (2) Anxiety disorder, unspecified (3) Dementia, vascular, with depression (4) Dementia, vascular, with delusions (5) Dementia in Alzheimer's disease with depression (6) Dementia in Alzheimer's disease with delusions (7) Dementia of the Alzheimer's type with early onset with behavioral disturbance (8) Major neurocognitive disorder SONIA REILLY MD Dec 21, 2020 08:21
== END 2020-12-20 10:05 | DRG 57 ==
LOC: ER 00:50 → GEROPSY 04:04
PROVIDERS: ADMIT Psychiatry & Neurology Psychiatry; ATTEND Psychiatry & Neurology Psychiatry
DX: G30.9 Alzheimer's disease, unspecified (principal); F01.51 Vascular dementia, unspecified severity, with behavioral disturbance; F02.81 Dementia in other diseases classified elsewhere, unspecified severity, with behavioral disturbance; M19.90 Unspecified osteoarthritis, unspecified site; F32.9 Major depressive disorder, single episode, unspecified; F41.9 Anxiety disorder, unspecified; F63.9 Impulse disorder, unspecified; I10 Essential (primary) hypertension; E78.5 Hyperlipidemia, unspecified; D64.9 Anemia, unspecified; N40.0 Benign prostatic hyperplasia without lower urinary tract symptoms; Z79.899 Other long term (current) drug therapy
CPT/HCPCS: 36415; 70450; 71045; 80048; 80053; 80061; 80076; 80164; 80307; 81001; 82140; 82306; 82550; 82607; 83036; 83540; 83550; 83735; 83880; 84436; 84443; 84480; 84484; 85025; 85379; 86592; 93005; 99285-25